=== PATIENT | female | born 1965 | race Caucasian/White ===

== ENCOUNTER → 2017-11-27 | Outpatient (CLI) | payer OTHER ==
--- NOTE | 2017-11-28 07:13 | US ---
EXAMINATION TYPE: US venous doppler duplex LE LT DATE OF EXAM: 11/27/2017 6:37 PM COMPARISON: Bilateral Doppler duplex venous ultrasound June 07, 2013 CLINICAL HISTORY: R22.42 Localized Swelling, mass and lump. Left leg edema SIDE PERFORMED: Left TECHNIQUE: The lower extremity deep venous system is examined utilizing real time linear array sonog ben with graded compression, doppler sonography and color-flow sonography. VESSELS IMAGED: External Iliac Vein (EIV) Common Femoral Vein Deep Femoral Vein Greater Saphenous Vein * Femoral Vein Popliteal Vein Small Saphenous Vein * Proximal Calf Veins (* superficial vessels) Left Leg: Negative for DVT Grayscale, color doppler, spectral doppler imaging performed of the deep veins of the left lower extr emity. There is normal flow, compressibility, vascular waveforms. IMPRESSION: No ultrasound evidence for acute DVT in the left lower extremity.
== END | disposition home or self-care (01) ==
LOC: RADUSMAIN 17:56
PROVIDERS: ATTEND Family Medicine
DX: R22.42 Localized swelling, mass and lump, left lower limb (principal)

== ENCOUNTER → 2018-06-10 | Outpatient (CLI) | payer OTHER ==
--- NOTE | 2018-06-11 13:06 | ECHOF ---
Referral Reason:I10 R60 MEASUREMENTS -------- HEIGHT: 170.2 cm WEIGHT: 158.8 kg BP: RVIDd: 2.6 cm (< 3.3) IVSd: 1.2 cm (0.6 - 1.1) LVIDd: 4.9 cm (3.9 - 5.3) LVPWd: 1.5 cm (0.6 - 1.1) IVSs: 1.5 cm LVIDs: 4.4 cm LVPWs: 1.1 cm LA Diam: 3.3 cm (2.7 - 3.8) LAESV Index (A-L): 20.99 ml/m Ao Diam: 3.0 cm (2.0 - 3.7) AV Cusp: 2.1 cm (1.5 - 2.6) LA Diam: 3.7 cm (2.7 - 3.8) MV EXCURSION: 14.447 mm (> 18.000) MV EF SLOPE: 83 mm/s (70 - 150) EPSS: 0.4 cm MV E Jackson: 0.78 m/s MV DecT: 270 ms MV A Jackson: 1.25 m/s MV E/A Ratio: 0.62 RAP: 5.00 mmHg RVSP: 18.08 mmHg FINDINGS -------- Sinus rhythm. Morbid Obesity The left ventricular size is normal. There is borderline concentric left ventricular hypertrophy. Overall left ventricular systolic function is normal with, an EF between 55 - 60 %. The right ventricle is normal in size. The left atrial size is normal. Normal LA size by volume 22+/-6 ml/m2. The right atrial size is normal. The aortic valve is trileaflet, and appears structurally normal. No aortic stenosis or regurgitation. The mitral valve is normal. Mild mitral regurgitation is present. Mild tricuspid regurgitation present. There is no evidence of pulmonary hypertension. The right v entricular systolic pressure, as measured by Doppler, is 18.08mmHg. There is no pulmonic regurgitation present. The aortic root size is normal. Echo free space indicative of a pericardial fat pad. CONCLUSIONS -------- 1. Sinus rhythm. 2. Morbid Obesity 3. The left ventricular size is normal. 4. There is borderline concentric left ventricular hypertrophy. 5. Overall left ventricular systolic function is normal with, an EF between 55 - 60 %. 6. The left atrial size is normal. 7. The aortic valve is trileaflet, and appears structurally normal. No aortic stenosis or regurgitati on. 8. Mild mitral regurgitation is present. 9. Mild tricuspid regurgitation present. 10. There is no evidence of pulmonary hypertension. 11. There is no pulmonic regurgitation present. 12. The aortic root size is normal. 13. Echo free space indicative of a pericardial fat pad. SIGNAL OPERATOR LINGUIST: Anne Agustin RDCS
== END | disposition home or self-care (01) ==
LOC: RADECHMAIN 15:03
PROVIDERS: ATTEND Family Medicine
DX: I08.1 Rheumatic disorders of both mitral and tricuspid valves (principal); I10 Essential (primary) hypertension; E66.9 Obesity, unspecified
CPT/HCPCS: 93306

== ENCOUNTER 2020-02-10 21:56 | Inpatient (IN) | payer OTHER ==
[2020-02-10] MEDS ORDERED: SODIUM CHLORIDE 0.9% 1,000 ML IV ONE (21:58)
[2020-02-10] MEDS ORDERED: LORazepam 2 MG/ML INJ IV STA (21:59)
[2020-02-10] MEDS: SODIUM CHLORIDE 0.9% 1,000 ML IV ONE ×2 (22:05→22:58)
--- NOTE | 2020-02-10 22:05 | ED ---
General Adult HPI - General Source: EMS, RN notes reviewed, old records reviewed <Slim Navarro - Last Filed: 02/10/20 22:56> <Inocencio Neely - Last Filed: 02/12/20 05:37> - General Stated complaint: altered mental status Time Seen by Provider: 02/10/20 21:56 - History of Present Illness Initial comments: This is a 54-year-old female with a past medical history significant for morbid obesity and hypertension. According to EMS family states that she started complaining of a headache about an hour ago and then became altered slightly just a little confused at about 20 minutes prior to arrival she became very combative and not interacting with EMS at all she is unable to respond to any questions so she is moving all 4 extremities and wailing and fighting us but does not understand anything we are saying. Patient follows no simple commands. According to EMS there's been no other issues up until the headache hour ago. There's been no recent fever chills is been no recent vomiting or diarrhea here to give any further history at this time. (Slim Navarro) - Related Data Home Medications Medication Instructions Recorded Confirmed No Known Home Medications 02/11/20 02/11/20 Allergies Allergy/AdvReac Type Severity Reaction Status Date / Time Penicillins Allergy Swelling Verified 02/11/20 09:05 Review of Systems ROS Other: All systems not noted in ROS Statement are negative. <Slim Navarro - Last Filed: 02/10/20 22:56> ROS Other: All systems not noted in ROS Statement are negative. <Inocencio Neely - Last Filed: 02/12/20 05:37> ROS Statement: Those systems with pertinent positive or pertinent negative responses have been documented in the HPI. Past Medical History Past Medical History: Hypertension Additional Past Medical History / Comment(s): lower leg edema History of Any Multi-Drug Resistant Organisms: None Reported Past Surgical History: No Surgical Hx Reported Past Psychological History: No Psychological Hx Reported Smoking Status: Never smoker Past Alcohol Use History: None Reported Past Drug Use History: None Reported <Slim Navarro - Last Filed: 02/10/20 22:56> General Exam <Slim Navarro - Last Filed: 02/10/20 22:56> - General Exam Comments Initial Comments: GENERAL: Patient is well-developed and well-nourished. Patient is nontoxic and well- hydrated and does not oriented all and is combative with the staff. Patient does not follow her understanding simple commands ENT: Neck is soft and supple. No significant lymphadenopathy is noted. Oropharynx is clear. Moist mucous membranes. Neck has full range of motion without eliciting any pain. EYES: The sclera were anicteric and conjunctiva were pink and moist. Extraocular movements were intact and pupils were equal round and reactive to light. Eyelids were unremarkable. PULMONARY: Unlabored respirations. Good breath sounds bilaterally. No audible rales rhonchi or wheezing was noted. CARDIOVASCULAR: There is a regular rate and rhythm without any murmurs gallops or rubs. ABDOMEN: Soft and nontender with normal bowel sounds. Patient is morbidly obese SKIN: Skin is clear with no lesions or rashes and otherwise unremarkable. NEUROLOGIC: Patient is awake and oriented 0 patient is moving all 4 extremities this time. MUSCULOSKELETAL: Normal extremities with adequate strength and full range of motion. No lower extremity swelling or edema. No calf tenderness. LYMPHATICS: No significant lymphadenopathy is noted PSYCHIATRIC: Not able to do at this time (Slim Navarro) Course Vital Signs 02/10/20 02/10/20 02/10/20 22:23 22:46 22:50 Temperature 98.9 F Pulse Rate 120 H 116 H 118 H Respiratory 16 24 18 Rate Blood Pressure 255/157 220/114 233/133 O2 Sat by Pulse 90 L 90 L 94 L Oximetry 02/10/20 02/11/20 02/11/20 23:45 00:00 01:00 Temperature 97.2 F L 36.3 F L Pulse Rate 118 H 116 H 118 H Respiratory 3 L 16 16 Rate Blood Pressure 249/150 202/110 207/110 O2 Sat by Pulse 97 100 98 Oximetry 02/11/20 02/11/20 02/11/20 02:00 02:41 02:50 Temperature 97.3 F L 97.5 F L Pulse Rate 116 H 114 H 114 H Respiratory 16 4 L 22 Rate Blood Pressure 202/104 O2 Sat by Pulse 99 98 95 Oximetry 02/11/20 02/11/20 02/11/20 03:00 03:22 03:30 Temperature Pulse Rate 113 H 111 H Respiratory 20 28 H 21 Rate Blood Pressure 201/110 123/104 O2 Sat by Pulse 96 99 Oximetry Medical Decision Making - Lab Data Result diagrams: 02/10/20 22:25 <Slim Navarro - Last Filed: 02/10/20 22:56> - Lab Data Result diagrams: 02/12/20 04:02 02/12/20 04:02 <Inocencio Neely - Last Filed: 02/12/20 05:37> - Medical Decision Making EKG shows sinus tachycardia at 123 bpm MT interval 162 QRS is 92 QT interval 314 QTC is 449. Patient's EKG shows no ST segment elevation or depression. Care of this patient with taking over Dr. De Oliveira at 9 PM (Slim Navarro) I received this patient as a sign out at 11 PM contrary to the note which states 9 PM. I did obtain additional history from the patient's at the bedside. History is consistent with what is given above, mainly at the patient seemed somewhat encephalopathic at home. She was wandering into the wrong rooms of the house looking for the bathroom and was confused. Family called EMS and h ad brought her here. In addition I verified that the patient does not see a physician at baseline. She is known to have hypertensive and is noncompliant. She is a previous smoker, but does not drink or take any street drugs. The patient had been intubated for acute respiratory failure. I discussed the case with both admitting physician, Dr. Louis and with Dr. Plata covering pulmonary. (Inocencio Neely) - Lab Data Lab Results 02/10/20 02/10/20 02/10/20 Range/Units 22:05 22:25 22:25 WBC 9.8 (3.8-10.6) k/uL RBC 5.48 H (3.80-5.40) m/uL Hgb 15.4 (11.4-16.0) gm/dL Hct 51.5 H (34.0-46.0) % MCV 94.0 (80.0-100.0) fL MCH 28.1 (25.0-35.0) pg MCHC 29.9 L (31.0-37.0) g/dL RDW 13.4 (11.5-15.5) % Plt Count 181 (150-450) k/uL Neutrophils % 67 % Lymphocytes % 24 % Monocytes % 5 % Eosinophils % 1 % Basophils % 1 % Neutrophils # 6.6 (1.3-7.7) k/uL Lymphocytes # 2.4 (1.0-4.8) k/uL Monocytes # 0.5 (0-1.0) k/uL Eosinophils # 0.1 (0-0.7) k/uL Basophils # 0.1 (0-0.2) k/uL Hypochromasia Moderate PT 9.5 (9.0-12.0) sec INR 0.9 (<1.2) APTT 22.2 (22.0-30.0) sec D-Dimer (<0.60) mg/L FEU Sample Site ABG pH (7.35-7.45) ABG pCO2 (35-45) mmHg ABG pO2 (83-108) mmHg ABG HCO3 (21-25) mmol/L ABG Total CO2 (19-24) mmol/L ABG O2 Saturation (94-97) % ABG Base Excess mmol/L Shawn Test FiO2 % Sodium (137-145) mmol/L Potassium (3.5-5.1) mmol/L Chloride (98-107) mmol/L Carbon Dioxide (22-30) mmol/L Anion Gap mmol/L BUN (7-17) mg/dL Creatinine (0.52-1.04) mg/dL Est GFR (CKD-EPI)AfAm (>60 ml/min/1.73 sqM) Est GFR (CKD-EPI)NonAf (>60 ml/min/1.73 sqM) Glucose (74-99) mg/dL POC Glucose (mg/dL) >600 H (75-99) mg/dL POC Glu Envelope Stamping Machine Operator ID Britni Atkinson Calcium (8.4-10.2) mg/dL Total Bilirubin (0.2-1.3) mg/dL AST (14-36) U/L ALT (4-34) U/L Alkaline Phosphatase (38-126) U/L Ammonia (<30) umol/L Troponin I (0.000-0.034) ng/mL Total Protein (6.3-8.2) g/dL Albumin (3.5-5.0) g/dL Acetone, Qual (Negative) Coronavirus (PCR) (Not Detectd) 04/22/20 04/22/20 04/22/20 Range/Units 22:25 22:25 22:25 WBC (3.8-10.6) k/uL RBC (3.80-5.40) m/uL Hgb (11.4-16.0) gm/dL Hct (34.0-46.0) % MCV (80.0-100.0) fL MCH (25.0-35.0) pg MCHC (31.0-37.0) g/dL RDW (11.5-15.5) % Plt Count (150-450) k/uL Neutrophils % % Lymphocytes % % Monocytes % % Eosinophils % % Basophils % % Neutrophils # (1.3-7.7) k/uL Lymphocytes # (1.0-4.8) k/uL Monocytes # (0-1.0) k/uL Eosinophils # (0-0.7) k/uL Basophils # (0-0.2) k/uL Hypochromasia PT (9.0-12.0) sec INR (<1.2) APTT (22.0-30.0) sec D-Dimer (<0.60) mg/L FEU Sample Site ABG pH (7.35-7.45) ABG pCO2 (35-45) mmHg ABG pO2 (83-108) mmHg ABG HCO3 (21-25) mmol/L ABG Total CO2 (19-24) mmol/L ABG O2 Saturation (94-97) % ABG Base Excess mmol/L Shawn Test FiO2 % Sodium 133 L (137-145) mmol/L Potassium 3.5 (3.5-5.1) mmol/L Chloride 90 L (98-107) mmol/L Carbon Dioxide 32 H (22-30) mmol/L Anion Gap 11 mmol/L BUN 10 (7-17) mg/dL Creatinine 0.91 (0.52-1.04) mg/dL Est GFR (CKD-EPI)AfAm 84 (>60 ml/min/1.73 sqM) Est GFR (CKD-EPI)NonAf 73 (>60 ml/min/1.73 sqM) Glucose 648 H* (74-99) mg/dL POC Glucose (mg/dL) (75-99) mg/dL POC Glu Envelope Stamping Machine Operator ID Calcium 9.0 (8.4-10.2) mg/dL Total Bilirubin 0.4 (0.2-1.3) mg/dL AST 39 H (14-36) U/L ALT 32 (4-34) U/L Alkaline Phosphatase 196 H (38-126) U/L Ammonia 16 (<30) umol/L Troponin I <0.012 (0.000-0.034) ng/mL Total Protein 8.0 (6.3-8.2) g/dL Albumin 4.3 (3.5-5.0) g/dL Acetone, Qual Negative (Negative) Coronavirus (PCR) (Not Detectd) 02/10/20 02/10/20 02/10/20 Range/Units 22:49 23:32 23:42 WBC (3.8-10.6) k/uL RBC (3.80-5.40) m/uL Hgb (11.4-16.0) gm/dL Hct (34.0-46.0) % MCV (80.0-100.0) fL MCH (25.0-35.0) pg MCHC (31.0-37.0) g/dL RDW (11.5-15.5) % Plt Count (150-450) k/uL Neutrophils % % Lymphocytes % % Monocytes % % Eosinophils % % Basophils % % Neutrophils # (1.3-7.7) k/uL Lymphocytes # (1.0-4.8) k/uL Monocytes # (0-1.0) k/uL Eosinophils # (0-0.7) k/uL Basophils # (0-0.2) k/uL Hypochromasia PT (9.0-12.0) sec INR (<1.2) APTT (22.0-30.0) sec D-Dimer 0.65 H (<0.60) mg/L FEU Sample Site r rad ABG pH 7.11 L* (7.35-7.45) ABG pCO2 106 H* (35-45) mmHg ABG pO2 183 H (83-108) mmHg ABG HCO3 34 H (21-25) mmol/L ABG Total CO2 37 H (19-24) mmol/L ABG O2 Saturation 99.5 H (94-97) % ABG Base Excess 4.0 mmol/L Shawn Test Yes FiO2 100 % Sodium (137-145) mmol/L Potassium (3.5-5.1) mmol/L Chloride (98-107) mmol/L Carbon Dioxide (22-30) mmol/L Anion Gap mmol/L BUN (7-17) mg/dL Creatinine (0.52-1.04) mg/dL Est GFR (CKD-EPI)AfAm (>60 ml/min/1.73 sqM) Est GFR (CKD-EPI)NonAf (>60 ml/min/1.73 sqM) Glucose (74-99) mg/dL POC Glucose (mg/dL) (75-99) mg/dL POC Glu Envelope Stamping Machine Operator ID Calcium (8.4-10.2) mg/dL Total Bilirubin (0.2-1.3) mg/dL AST (14-36) U/L ALT (4-34) U/L Alkaline Phosphatase (38-126) U/L Ammonia (<30) umol/L Troponin I (0.000-0.034) ng/mL Total Protein (6.3-8.2) g/dL Albumin (3.5-5.0) g/dL Acetone, Qual (Negative) Coronavirus (PCR) Not Detected (Not Detectd) 02/10/20 Range/Units 23:53 WBC (3.8-10.6) k/uL RBC (3.80-5.40) m/uL Hgb (11.4-16.0) gm/dL Hct (34.0-46.0) % MCV (80.0-100.0) fL MCH (25.0-35.0) pg MCHC (31.0-37.0) g/dL RDW (11.5-15.5) % Plt Count (150-450) k/uL Neutrophils % % Lymphocytes % % Monocytes % % Eosinophils % % Basophils % % Neutrophils # (1.3-7.7) k/uL Lymphocytes # (1.0-4.8) k/uL Monocytes # (0-1.0) k/uL Eosinophils # (0-0.7) k/uL Basophils # (0-0.2) k/uL Hypochromasia PT (9.0-12.0) sec INR (<1.2) APTT (22.0-30.0) sec D-Dimer (<0.60) mg/L FEU Sample Site rrad ABG pH 7.18 L* (7.35-7.45) ABG pCO2 81 H* (35-45) mmHg ABG pO2 164 H (83-108) mmHg ABG HCO3 30 H (21-25) mmol/L ABG Total CO2 33 H (19-24) mmol/L ABG O2 Saturation 99.5 H (94-97) % ABG Base Excess 1.7 mmol/L Shawn Test Yes FiO2 100 % Sodium (137-145) mmol/L Potassium (3.5-5.1) mmol/L Chloride (98-107) mmol/L Carbon Dioxide (22-30) mmol/L Anion Gap mmol/L BUN (7-17) mg/dL Creatinine (0.52-1.04) mg/dL Est GFR (CKD-EPI)AfAm (>60 ml/min/1.73 sqM) Est GFR (CKD-EPI)NonAf (>60 ml/min/1.73 sqM) Glucose (74-99) mg/dL POC Glucose (mg/dL) (75-99) mg/dL POC Glu Envelope Stamping Machine Operator ID Calcium (8.4-10.2) mg/dL Total Bilirubin (0.2-1.3) mg/dL AST (14-36) U/L ALT (4-34) U/L Alkaline Phosphatase (38-126) U/L Ammonia (<30) umol/L Troponin I (0.000-0.034) ng/mL Total Protein (6.3-8.2) g/dL Albumin (3.5-5.0) g/dL Acetone, Qual (Negative) Coronavirus (PCR) (Not Detectd) Critical Care Time Critical Care Time: Yes (45 minutes) <Inocencio Neely - Last Filed: 02/12/20 05:37> Disposition <Slim Navarro - Last Filed: 02/10/20 22:56> <Inocencio Neely - Last Filed: 02/12/20 05:37> Clinical Impression: Hypertensive encephalopathy, Hyperglycemia, Acute respiratory failure, Hypercarbia, Pneumonia, Altered mental status Disposition: ADMITTED IP TO THIS HOSP Condition: Critical
[2020-02-10 22:10] LABS: Glucose,Whole Blood >600 mg/dL (75-99)
[2020-02-10] MEDS ORDERED: INSULIN REGULAR 100 UNIT/ML VIAL IV ONE (22:24)
[2020-02-10] MEDS ORDERED: INSULIN REGULAR 100 UNIT in SODIUM CHLORIDE 0.9% 100 ML IV SCH (22:30)
--- NOTE | 2020-02-10 22:33 | CT ---
EXAMINATION TYPE: CT brain wo con DATE OF EXAM: 02/10/2020 COMPARISON: None HISTORY: 54-year-old female confusion, Altered mental status. TECHNIQUE: Examination was done in axial plane without intravenous contrast. Coronal and sagittal r econstructions performed. CT DLP: 1121.4 mGycm Automated exposure control for dose reduction was used. FINDINGS: There is no evidence of acute intracranial hemorrhage, acute ischemic changes, mass, mass-effect, or extra-axial fluid collection. There is no effacement of cerebral sulci or basal subarachnoid cister ns. There is no hydrocephalus. There is no midline shift. Newton-white matter distinction is preserv ed. 4 mm of right-sided cerebellar tonsillar ectopia, suggesting benign cerebellar tonsillar ectopia. Paranasal sinuses and mastoid air cells are pneumatized. Orbits and globes are intact. IMPRESSION: No acute intracranial abnormality seen. Incidental benign cerebellar tonsillar ectopia on the right o f 4 mm.
[2020-02-10 22:46] LABS: Basophils # (A) 0.1 k/uL (0-0.2); Basophils % (A) 1 %; Eosinophils # (A) 0.1 k/uL (0-0.7); Eosinophils % (A) 1 %; HCT 51.5 % (34.0-46.0); HGB 15.4 gm/dL (11.4-16.0); Hypochromasia Moderate; Lymphocytes # (A) 2.4 k/uL (1.0-4.8); Lymphocytes % (A) 24 %; MCH 28.1 pg (25.0-35.0); MCHC 29.9 g/dL (31.0-37.0); Mean Platelet Volume 8.7; Monocytes # (A) 0.5 k/uL (0-1.0); Monocytes % (A) 5 %; Neutrophils # (A) 6.6 k/uL (1.3-7.7); Neutrophils % (A) 67 %; Platelet Count 181 k/uL (150-450); RBC 5.48 m/uL (3.80-5.40); RDW 13.4 % (11.5-15.5); WBC 9.8 k/uL (3.8-10.6)
[2020-02-10] MEDS ORDERED: hydrALAZINE HCL 20 MG/ML 1 ML VIAL IVP STA (22:52)
[2020-02-10 22:53] LABS: ABG HCO3 34 mmol/L (21-25); ABG Oxygen Saturation 99.5 % (94-97); ABG PO2 183 mmHg (83-108); ABG TCO2 37 mmol/L (19-24); Allen Test Performed? Yes
[2020-02-10 22:54] LABS: ABG PCO2 106 mmHg (35-45); ABG PH 7.11 (7.35-7.45)
[2020-02-10 22:56] LABS: ALT 32 U/L (4-34); AST 39 U/L (14-36); African American GFR (CKD) 84 (>60 ml/min/1.73 sqM); Albumin 4.3 g/dL (3.5-5.0); Alkaline Phosphatase 196 U/L (38-126); Anion Gap 11 mmol/L; Blood Urea Nitrogen 10 mg/dL (7-17); Carbon Dioxide 32 mmol/L (22-30); Chloride 90 mmol/L (98-107); Non-African American GFR(CKD) 73 (>60 ml/min/1.73 sqM); Potassium 3.5 mmol/L (3.5-5.1); Sodium 133 mmol/L (137-145); Total Bilirubin 0.4 mg/dL (0.2-1.3)
[2020-02-10 22:58] LABS: INR 0.9 (<1.2); Partial Thromboplastin Time 22.2 sec (22.0-30.0); Prothrombin Time 9.5 sec (9.0-12.0)
[2020-02-10 23:10] LABS: Glucose 648 mg/dL (74-99)
[2020-02-10] MEDS ORDERED: ROCURONIUM BROMIDE 10 MG/ML 5 ML VIAL IV ONE (23:18)
[2020-02-10] MEDS ORDERED: SUCCINYLCHOLINE CHLORIDE VIAL 200 MG/10 ML VIAL IV ONE (23:18)
[2020-02-10] MEDS ORDERED: ETOMIDATE 2 MG/ML 10 ML VIAL ONE (23:18)
[2020-02-10 23:57] LABS: ABG Base Excess 1.7 mmol/L; ABG HCO3 30 mmol/L (21-25); ABG Oxygen Saturation 99.5 % (94-97); ABG PCO2 81 mmHg (35-45); ABG PH 7.18 (7.35-7.45); ABG PO2 164 mmHg (83-108); ABG TCO2 33 mmol/L (19-24); Allen Test Performed? Yes
[2020-02-11] MEDS: PROPOFOL 1,000 MG in EMPTY BAG 1 BAG IV SCH ×11 (00:03→21:11)
--- NOTE | 2020-02-11 00:16 | XR ---
EXAMINATION TYPE: XR chest 1V portable DATE OF EXAM: 02/11/2020 COMPARISON: 06/05/2013 HISTORY: Chest pain. Respiratory failure. TECHNIQUE: Single view supine FINDINGS: Endotracheal tube is 5 mm from the sara. There is left-sided perihilar infiltrate. There is no gross heart failure. There is no pleural effusion. IMPRESSION: Endotracheal tube is low and should BE pulled back 4 cm. There is left side perihilar inf iltrate and atelectasis. Nasogastric tube is not identified.
[2020-02-11] MEDS ORDERED: ENALAPRILAT 1.25 MG/ML 1 ML VIAL IVP STA (00:21)
[2020-02-11] MEDS ORDERED: MORPHINE SULFATE 2 MG/ML SYRINGE IV PRN (00:33)
[2020-02-11] MEDS ORDERED: ACETAMINOPHEN SUPPOSITORY 650 MG SUPP RECTAL PRN (00:33)
[2020-02-11] MEDS ORDERED: ACETAMINOPHEN TAB 325 MG TAB PO PRN (00:33)
[2020-02-11] MEDS ORDERED: ARTIFICIAL TEARS OINTMENT 3.5 GM TUBE BOTH EYES PRN (00:33)
[2020-02-11] MEDS ORDERED: NALOXONE 0.4 MG/ML 1 ML VIAL IV PRN (00:33)
[2020-02-11] MEDS ORDERED: AZITHROMYCIN 500 MG in SODIUM CHLORIDE 0.9% 250 ML IVPB STA (00:46)
[2020-02-11 01:15] LABS: Glucose,Whole Blood 468 mg/dL (75-99)
[2020-02-11 02:24] LABS: Appearance,Urine Cloudy (Clear); Bacteria,Urine Moderate /hpf; Bilirubin,Urine Negative (Negative); Blood,Urine Trace (Negative); Color,Urine Light Yellow; Glucose,Urine (UA) 4+ (Negative); Hyaline Casts,Urine 1 /lpf (0-2); Ketones,Urine Negative (Negative); Leukocyte Esterase,Urine Large (Negative); Mucus,Urine Rare /hpf; Nitrite,Urine Negative (Negative); Protein,Urine 2+ (Negative); RBC,Urine 4 /hpf (0-5); Specific Gravity,Urine 1.026 (1.001-1.035); Urobilinogen,Urine <2.0 mg/dL (<2.0); WBC,Urine 126 /hpf (0-5)
[2020-02-11 02:28] LABS: Amphetamine Screen,Urine Not Detected (NotDetected); Barbiturate Screen,Urine Not Detected (NotDetected); Benzodiazepines Screen,Urine Not Detected (NotDetected); Cocaine Screen,Urine Not Detected (NotDetected); Methadone Screen, Urine Not Detected (NotDetected); Opiate Screen,Urine Not Detected (NotDetected); Oxycodone Screen, Urine Not Detected (NotDetected); Phencyclidine Screen,Urine Not Detected (NotDetected); Tricyclic Antidepressant,Urine Not Detected (NotDetected); Urn Cannabinoid Scrn Not Detected (NotDetected)
[2020-02-11 02:45] LABS: Glucose,Whole Blood 327 mg/dL (75-99)
--- NOTE | 2020-02-11 02:53 | CT ---
EXAMINATION TYPE: CT chest angio for PE DATE OF EXAM: 02/11/2020 COMPARISON: None HISTORY: r/o PE Chest pain. Short of breath. Respiratory failure. CT DLP: 1022.5 mGycm Automated exposure control for dose reduction was used. CONTRAST: Performed with IV Contrast, patient injected with 100 mL of Isovue 370. There are 3-D post processed images. There is posterior basilar pulmonary infiltrates and atelectasis. Heart appears slightly enlarged. Th ere is no pericardial effusion. There is no pleural effusion. There are no hilar masses. Thoracic aor ta is intact without evidence of dissection. Ascending aorta measures 3.8 cm. There is no evidence of filling defect in the pulmonary arteries. There is no mediastinal adenopathy. Thoracic vertebra have normal alignment. There is no thoracic paraspinal mass. Bony thorax is intact. IMPRESSION: Cardiomegaly. Bilateral lower lobe pulmonary infiltrates and atelectasis. No evidence of pulmonary embolism. Hepatomegaly and fatty infiltration of the liver.
[2020-02-11] MEDS: POTASSIUM CHLORIDE 10 MEQ in WATER FOR INJECTION 1 100ML.BAG IVPB SCH ×4 (02:57→05:30)
[2020-02-11] MEDS: SODIUM CHLORIDE 0.9% 1,000 ML IV SCH ×4 (02:58→23:06)
--- NOTE | 2020-02-11 03:20 | XR ---
EXAMINATION TYPE: XR chest 1V confirm line [facility] DATE OF EXAM: 02/11/2020 COMPARISON: Yesterday HISTORY: Check tube placement TECHNIQUE: Single view FINDINGS: There is endotracheal tube 3.5 cm from the sara. There is left side perihilar infiltrate. Right lung is clear of consolidation. There is no heart failure. There is nasogastric tube in the st omach. IMPRESSION: Left side perihilar infiltrate unchanged. Endotracheal tube in good position.
[2020-02-11 05:13] LABS: Basophils % (A) 0 %; Eosinophils % (A) 0 %; HCT 48.5 % (34.0-46.0); HGB 14.6 gm/dL (11.4-16.0); Hypochromasia Moderate; Lymphocytes # (A) 0.6 k/uL (1.0-4.8); Lymphocytes % (A) 4 %; MCH 28.2 pg (25.0-35.0); MCHC 30.1 g/dL (31.0-37.0); MCV 93.8 fL (80.0-100.0); Mean Platelet Volume 8.4; Monocytes # (A) 0.9 k/uL (0-1.0); Monocytes % (A) 6 %; Neutrophils # (A) 15.1 k/uL (1.3-7.7); Neutrophils % (A) 90 %; Platelet Count 211 k/uL (150-450); RBC 5.18 m/uL (3.80-5.40); RDW 13.6 % (11.5-15.5); WBC 16.9 k/uL (3.8-10.6)
[2020-02-11 05:20] LABS: African American GFR (CKD) 80 (>60 ml/min/1.73 sqM); Alcohol <10 mg/dL; Anion Gap 8 mmol/L; Blood Urea Nitrogen 11 mg/dL (7-17); Calcium 8.3 mg/dL (8.4-10.2); Carbon Dioxide 32 mmol/L (22-30); Chloride 95 mmol/L (98-107); Glucose 405 mg/dL (74-99); Magnesium 1.8 mg/dL (1.6-2.3); Non-African American GFR(CKD) 70 (>60 ml/min/1.73 sqM); Phosphorus 5.1 mg/dL (2.5-4.5); Potassium 4.5 mmol/L (3.5-5.1); Sodium 135 mmol/L (137-145)
--- NOTE | 2020-02-11 05:35 | P.HPIM ---
History of Present Illness H&P Date: 02/11/20 The patient is a 54-year-old female with a PMH of hypertension (poor f/u with PMD) and morbid obesity presented to the ED, brought in by family for confusion. Spoke with the patient's (Brandon via phone [phone]) who reported that the patient had been feeling somewhat ill for the past few weeks. She was however able to function for the most part and attend to her job. She however complained of a headache an hour prior to presentation and proceeded to lay down. She complained to her family that she doesn't feel well, and then became confused, not answering questions appropriately. The family activated EMS and she was brought in to the ED where she was noted to be altered and combative. The patient was noted to be extremely hypertensive upon arrival, with BP 255/157, pulse 120, and saturating 90% on nonrebreather mask. The patient's ABG revealed a pH of 7.11 and pCO2 106. The patient was subsequently intubated. She underwent an extensive evaluation in the emergency room with a brain CT that was unremarkable, chest x-ray which showed a left perihilar infiltrate with atelectasis, EKG showing sinus a cardiac 1 23 bpm, and a chest CTA which revealed cardiomegaly, bilateral lower pulmonary infiltrates, with hepatomegaly and fatty infiltration of the liver. Laboratory evaluation revealed a WBC count of 9.8, hemoglobin 15.4, platelets 181, sodium 133, potassium 3.5, chloride 90, CO2 32, BUN 10, creatinine 0.91, glucose 648, alkaline phosphatase 196, and d- dimer 0.65, with troponin less than 0.012. The patient was admitted to the medical ICU for further management. Review of Systems Pertinent positives and negatives as discussed in HPI, a complete review of systems was performed and all other systems are negative. Past Medical History Past Medical History: Hypertension Additional Past Medical History / Comment(s): lower leg edema History of Any Multi-Drug Resistant Organisms: None Reported Past Surgical History: No Surgical Hx Reported Past Psychological History: No Psychological Hx Reported Smoking Status: Never smoker Past Alcohol Use History: None Reported Past Drug Use History: None Reported Medications and Allergies Home Medications Medication Instructions Recorded Confirmed Type Acetaminophen-Codeine 300-30mg 1 each PO Q6H PRN #20 tablet 06/30/14 Rx [Tylenol #3] Carvedilol [Coreg] 3.125 mg PO DAILY 04/19/14 04/19/14 History Ciprofloxacin HCl [Cipro] 500 mg PO Q12HR #20 day 04/19/14 Rx Furosemide [Lasix] 20 mg PO DAILY PRN 04/19/14 04/19/14 History Ibuprofen [Motrin] 800 mg PO Q6HR PRN #30 tab 04/19/14 Rx Ondansetron [Zofran] 4 mg PO Q8HR PRN #15 tab 04/19/14 Rx Tamsulosin [Flomax] 0.4 mg PO DAILY #3 cap 04/19/14 Rx Allergies Allergy/AdvReac Type Severity Reaction Status Date / Time Penicillins Allergy Swelling Verified 04/19/14 11:12 Physical Exam Vitals: Vital Signs Temp Pulse Resp BP Pulse Ox 02/10/20 23:45 118 H 3 L 249/150 97 02/10/20 22:50 118 H 18 233/133 94 L 02/10/20 22:46 98.9 F 116 H 24 220/114 90 L 02/10/20 22:23 120 H 16 255/157 90 L Intake and Output 02/10/20 02/10/20 02/11/20 14:59 22:59 06:59 Intake Total 28.861 Balance 28.861 Intake: Intake, IV Titration 28.861 Amount Insulin Regular 100 unit 28.861 In Sodium Chloride 0.9% 100 ml @ 0.1 UNITS/KG/HR 16.034 mls/hr IV .Q6H18M [facility] Rx#:[id number] Other: Weight 158.757 kg General: Morbidly obese female, intubated, no distress, appears at stated age Derm: no unusual ecchymoses, warm, dry Head: atraumatic, normocephalic, symmetric Eyes: EOMI, no lid lag, anicteric sclera, pupils sluggishly reactive to light with spontaneous calvin nystagmus ENT: Nose and ears atraumatic Neck: No thyromegaly, no cervical lymphadenopathy, trachea midline, supple Mouth: no lip lesion Cardiovascular: S1S2 reg, no murmur, positive posterior tibial pulse bilateral, no edema, capillary refill less than 2 seconds Lungs: Scattered coarse breath sounds, no rales, no wheezing, no accessory muscle use Abdominal: soft, no appreciable organomegaly Ext: no gross muscle atrophy, no contractures, Neuro: Unresponsive to noxious stimuli Psych: Unable to perform Results CBC & Chem 7: 02/10/20 22:25 02/10/20 22:25 Labs: Abnormal Lab Results - Last 24 Hours (Table) 02/10/20 02/10/20 02/10/20 Range/Units 22:05 22:25 22:25 RBC 5.48 H (3.80-5.40) m/uL Hct 51.5 H (34.0-46.0) % MCHC 29.9 L (31.0-37.0) g/dL D-Dimer (<0.60) mg/L FEU ABG pH (7.35-7.45) ABG pCO2 (35-45) mmHg ABG pO2 (83-108) mmHg ABG HCO3 (21-25) mmol/L ABG Total CO2 (19-24) mmol/L ABG O2 Saturation (94-97) % Sodium 133 L (137-145) mmol/L Chloride 90 L (98-107) mmol/L Carbon Dioxide 32 H (22-30) mmol/L Glucose 648 H* (74-99) mg/dL POC Glucose (mg/dL) >600 H (75-99) mg/dL AST 39 H (14-36) U/L Alkaline Phosphatase 196 H (38-126) U/L 02/10/20 02/10/20 02/10/20 Range/Units 22:49 23:32 23:53 RBC (3.80-5.40) m/uL Hct (34.0-46.0) % MCHC (31.0-37.0) g/dL D-Dimer 0.65 H (<0.60) mg/L FEU ABG pH 7.11 L* 7.18 L* (7.35-7.45) ABG pCO2 106 H* 81 H* (35-45) mmHg ABG pO2 183 H 164 H (83-108) mmHg ABG HCO3 34 H 30 H (21-25) mmol/L ABG Total CO2 37 H 33 H (19-24) mmol/L ABG O2 Saturation 99.5 H 99.5 H (94-97) % Sodium (137-145) mmol/L Chloride (98-107) mmol/L Carbon Dioxide (22-30) mmol/L Glucose (74-99) mg/dL POC Glucose (mg/dL) (75-99) mg/dL AST (14-36) U/L Alkaline Phosphatase (38-126) U/L 02/11/20 Range/Units 01:12 RBC (3.80-5.40) m/uL Hct (34.0-46.0) % MCHC (31.0-37.0) g/dL D-Dimer (<0.60) mg/L FEU ABG pH (7.35-7.45) ABG pCO2 (35-45) mmHg ABG pO2 (83-108) mmHg ABG HCO3 (21-25) mmol/L ABG Total CO2 (19-24) mmol/L ABG O2 Saturation (94-97) % Sodium (137-145) mmol/L Chloride (98-107) mmol/L Carbon Dioxide (22-30) mmol/L Glucose (74-99) mg/dL POC Glucose (mg/dL) 468 H (75-99) mg/dL AST (14-36) U/L Alkaline Phosphatase (38-126) U/L Assessment and Plan Plan: Altered mental status, likely multifactorial with component of respiratory failure, hyperglycemia, uncontrolled hypertension, and UTI -Manage each as listed below Hypoxic and hypercapnic respiratory failure, likely multifactorial -Patient likely with underlying COPD, reported history of significant tobacco abuse, though states that the patient quit a few years ago -Likely also component of obesity hypoventilation syndrome -Continue with mechanical ventilation with ventilator bundle -Management as per line service technician -Pulmonary hygiene Hyperglycemia, likely undiagnosed type II DM -Continue with insulin sliding scale for now -Start Levemir 15 units daily -Blood glucose monitoring -Check A1c Hypertensive emergency -Avoid over-correction -Start anti-hypertensives Abnormal UA, presumed UTI in setting of altered mental status -Start patient on Levaquin -Follow up urine and blood cultures Hyponatremia, likely pseudo in setting of hypoglycemia -Continue to treat hyperglycemia as listed above Bilateral infiltrates on chest x-ray, presumed community acquired pneumonia -Start patient on Levaquin DVT prophylaxis -Heparin subq The patient is admitted with an anticipated greater than 2 midnight stay for evaluation of respiratory failure CODE STATUS: Full Code Discussed with: Anticipated discharge date: 4-[address]: home A total of 40 minutes was spent on the care of this complex patient more than 50% of the time was spent in counseling and care coordination.
[2020-02-11] MEDS ORDERED: Magnesium Replacement Protocol 1 EACH MISC MISCELLANE PRN (05:46)
[2020-02-11 05:54] LABS: ABG Base Excess -1.3 mmol/L; ABG HCO3 26 mmol/L (21-25); ABG Oxygen Saturation 98.6 % (94-97); ABG PCO2 61 mmHg (35-45); ABG PH 7.24 (7.35-7.45); ABG PO2 109 mmHg (83-108); ABG TCO2 28 mmol/L (19-24); Allen Test Performed? Yes
[2020-02-11 05:59] LABS: Glucose,Whole Blood 424 mg/dL (75-99)
[2020-02-11] MEDS ORDERED: INSULIN ASPART (NovoLOG) 100 UNIT/ML VIAL SQ SCH ×2 (06:00→07:30)
[2020-02-11] MEDS: MAGNESIUM SULFATE-D5W PMX 1 GM in DEXTROSE/WATER 1 100ML.BAG IVPB SCH ×2 (06:02→08:54)
[2020-02-11] MEDS: LEVOFLOXACIN 750MG-D5W PMX 750 MG in DEXTROSE/WATER 1 150ML.BAG IVPB SCH (06:09)
[2020-02-11] MEDS ORDERED: INSULIN DETEMIR (LEVEMIR) 100 UNIT/ML SYR SQ SCH (07:00)
[2020-02-11 07:56] LABS: Glucose,Whole Blood 456 mg/dL (75-99)
[2020-02-11] MEDS ORDERED: INSULIN REGULAR BOLUS (FROM DRIP BAG) IV PRN (07:56)
[2020-02-11] MEDS: HEPARIN SODIUM,PORCINE 5,000 UNIT/ML 1 ML VIAL SQ SCH ×3 (08:55→23:08)
[2020-02-11] MEDS: INSULIN REGULAR 100 UNIT in SODIUM CHLORIDE 0.9% 100 ML IV SCH ×2 (09:12→22:04)
[2020-02-11 09:20] LABS: Glucose,Whole Blood 512 mg/dL (75-99)
[2020-02-11 09:45] LABS: Glucose,Whole Blood 441 mg/dL (75-99)
--- NOTE | 2020-02-11 10:45 | XR ---
EXAMINATION TYPE: XR chest 1V portable DATE OF EXAM: 02/11/2020 CLINICAL HISTORY: Central line placement. TECHNIQUE: Single AP portable upright view of the chest is obtained. COMPARISON: Chest x-ray and CTA chest from earlier today FINDINGS: New left-sided internal jugular central venous catheter projects into the right subclavian vein and needs to be adjusted. Stable endotracheal and orogastric tubes. Suboptimal study due to body habitus. Persistent cardiomega ly with central vascular congestion. Developing left basilar opacity silhouetting the lateral aspect left hemidiaphragm. Osseous structures are intact. IMPRESSION: 1. New left-sided internal jugular central venous catheter terminates in right subclavian vein and ne eds to be adjusted. 2. Persistent cardiomegaly with central vascular congestion and low lung volumes. Worsening left basi lar acute atelectasis and/or infiltrate noted.
[2020-02-11 10:55] LABS: Glucose,Whole Blood 299 mg/dL (75-99)
[2020-02-11] MEDS ORDERED: SODIUM CHLORIDE 0.9% 2,000 ML IV ONE (10:58)
[2020-02-11] MEDS: PANTOPRAZOLE 40 MG/10 ML VIAL IV SCH (11:35)
[2020-02-11 12:08] LABS: Glucose,Whole Blood 238 mg/dL (75-99)
[2020-02-11 13:11] LABS: Glucose,Whole Blood 102 mg/dL (75-99)
--- NOTE | 2020-02-11 13:53 | P.CNPUL ---
History of Present Illness Consult date: 02/11/20 Chief complaint: Altered mental status History of present illness: This is a 54-year-old morbidly obese female patient was brought in to the ED y esterday because of diminished level of consciousness and confusion. No history was available MO's of the information was obtained from the medical records and per our discussion with the . Apparently the patient was feeling sick for a few days prior to hospital admission. She was having altered mentation. She complained of some minimal headache. Hours prior to her presentation to the hospital. She was confused and not answering questions appropriately. The family activated EMS who arrived to the scene and the patient was noted to be somewhat altered and combative. The patient also had acute hypertensive reaction where her blood pressure was found to be 255/157 with a pulse of 120. She was placed on nonrebreather facemask with a pulse of 70%. In the ED, blood gases was done that showed a pH of 7.11 with a pCO2 of 106. At that point, the patient was intubated and placed on a mechanical ventilator. Chest x-ray post intubation showed cardiomegaly and pulmonary asked her congestion. There was some left perihilar point infiltrates and some limited infiltration of the right perihilar area. CT angiogram showed cardiomegaly along with some lower lobe at the pulmonary infiltrates in addition to hepatomegaly and fatty infiltration of the liver. The EKG showed a normal sinus rhythm. UA Fort[place] suspicious for an underlying infection. The white cell count of 9.8 with hemoglobin 15.4. Rest of the blood work shows some mild metabolic alkalosis with a serum bicarb of 32. Glucose was 648. D-dimer was 0.6. Troponin was 0.12. This morning, the patient was seen in the intensive care unit. The patient was still intubated on mechanical ventilator. She was assist-control mode of ventilation with a rate of 20 and a tidal volume of 400 and FiO2 of 60% with a PEEP of 5. Morning blood gases showed a pH of 7.24 with a pCO2 61 and pO2 of 109. The patient was ordered to start on Levaquin suspecting an underlying UTI based on abnormal UA. The patient was a Covid negative case. The Covid night seen evaluation came back negative. The patient is currently afebrile. She is receiving IV fluids and normal saline at the rate of 1 30 mL an hour. She is sedated with propofol. She is on insulin drip that was started in the ICU for blood sugar control. She is also on heparin subcu for DVT prophylaxis. Review of Systems ROS unobtainable: due to endotracheal tube Past Medical History Past Medical History: Hypertension Additional Past Medical History / Comment(s): Morbid obesity, lower leg edema and the patient has not had any outpatient medical follow-up and she doesn't take any medications History of Any Multi-Drug Resistant Organisms: None Reported Past Surgical History: No Surgical Hx Reported Past Anesthesia/Blood Transfusion Reactions: No Reported Reaction Past Psychological History: No Psychological Hx Reported Smoking Status: Never smoker Past Alcohol Use History: None Reported Past Drug Use History: None Reported Medications and Allergies Home Medications Medication Instructions Recorded Confirmed Type No Known Home Medications 02/11/20 02/11/20 History Allergies Allergy/AdvReac Type Severity Reaction Status Date / Time Penicillins Allergy Swelling Verified 02/11/20 09:05 Physical Exam Vitals: Vital Signs Temp Pulse Resp BP Pulse Ox 02/11/20 13:00 93 22 97 02/11/20 12:30 95 25 H 98 02/11/20 12:00 100.6 F H 96 23 98/69 98 02/11/20 11:30 97 27 H 98/69 98 02/11/20 11:00 93 23 98/69 97 02/11/20 10:30 100 30 H 89/56 95 02/11/20 10:00 99 28 H 89/50 95 02/11/20 09:30 100 28 H 102/63 96 02/11/20 09:00 103 H 30 H 95/60 95 02/11/20 08:30 104 H 24 95/59 95 02/11/20 08:00 100.6 F H 104 H 23 98/64 95 02/11/20 07:30 103 H 23 103/59 96 02/11/20 07:00 103 H 21 104/64 96 02/11/20 06:30 106 H 20 106/64 97 02/11/20 06:00 109 H 20 108/64 98 02/11/20 05:30 112 H 22 131/68 98 02/11/20 05:00 111 H 20 172/79 97 02/11/20 04:30 109 H 20 161/96 98 02/11/20 04:00 98.5 F 109 H 20 150/90 100 04/23/20 03:30 111 H 21 123/104 99 02/11/20 03:22 28 H 02/11/20 03:00 113 H 20 201/110 96 02/11/20 02:50 97.5 F L 114 H 22 95 02/11/20 02:41 114 H 4 L 98 02/11/20 02:00 97.3 F L 116 H 16 202/104 99 02/11/20 01:00 36.3 F L 118 H 16 207/110 98 02/11/20 00:00 97.2 F L 116 H 16 202/110 100 02/10/20 23:45 118 H 3 L 249/150 97 02/10/20 22:50 118 H 18 233/133 94 L 02/10/20 22:46 98.9 F 116 H 24 220/114 90 L 02/10/20 22:23 120 H 16 255/157 90 L Intake and Output 02/10/20 02/11/20 02/11/20 22:59 06:59 14:59 Intake Total 3205.559 305.131 Output Total 1360 140 Balance 1845.559 165.131 Intake: IV 980 130 Potassium Chloride 10 meq 200 In Water For Injection 1 100ml.bag @ 100 mls/hr IVPB Q1HR [facility] Rx#: [id number] Sodium Chloride 0.9% 1, 780 130 000 ml @ 130 mls/hr IV . Q7H42M [facility] Rx#:[id number] Amount of Fluid Infused ( 2000 ml) Intake, IV Titration 225.559 175.131 Amount Insulin Regular 100 unit 28.861 In Sodium Chloride 0.9% 100 ml @ 0.1 UNITS/KG/HR 16.034 mls/hr IV .Q6H18M [facility] Rx#:[id number] Insulin Regular 100 unit 42.252 In Sodium Chloride 0.9% 100 ml @ Per Protocol IV .Q0M [facility] Rx#:[id number] Propofol 1,000 mg In 196.698 132.879 Empty Bag 1 bag @ Titrate IV .Q0M [facility] Rx#: [id number] Output: Urine 1360 140 Other: Weight 158.757 kg 158.757 kg ABP, PAP, CO, CI - Last 8 Hours Arterial Blood Pressure 89/53 Arterial Blood Pressure 108/54 Arterial Blood Pressure 94/55 Arterial Blood Pressure 94/56 Arterial Blood Pressure 87/53 General: Morbidly obese female, intubated, no distress, appears at stated age, she is well sedated with propofol, comfortable likely distress. Orogastric and orotracheal tube are both in place. Derm: no unusual ecchymoses, warm, dry, Examination of the skin revealed no evidence of significant rashes, suspicious appearing nevi or other concerning l esions. Head: atraumatic, normocephalic, symmetric Eyes: EOMI, no lid lag, anicteric sclera, pupils sluggishly reactive to light with spontaneous calvin nystagmus ENT: Nose and ears atraumatic Neck: No thyromegaly, no cervical lymphadenopathy, trachea midline, supple Mouth: no lip lesion Cardiovascular: S1S2 reg, no murmur, positive posterior tibial pulse bilateral, no edema, capillary refill less than 2 seconds Lungs: Scattered coarse breath sounds, no rales, no wheezing, no accessory muscle use Abdominal exam revealed normal bowel sounds. The abdomen was soft, non-tender, and without masses, organomegaly, or appreciable enlargement of the abdominal aorta. Examination of the extremities revealed easily palpable radial, femoral and pedal pulses. There was no cyanosis, clubbing or edema. Neuro: Unresponsive to noxious stimuli Psych: Unable to perform Results - Laboratory Findings CBC and BMP: 02/11/20 04:38 02/11/20 04:38 ABG ABG pH 7.24 (7.35-7.45) L 02/11/20 05:50 ABG pCO2 61 mmHg (35-45) H 02/11/20 05:50 ABG pO2 109 mmHg (83-108) H 02/11/20 05:50 ABG O2 Saturation 98.6 % (94-97) H 02/11/20 05:50 PT/INR, D-dimer PT 9.5 sec (9.0-12.0) 02/10/20 22:25 INR 0.9 (<1.2) 02/10/20 22:25 D-Dimer 0.65 mg/L FEU (<0.60) H 02/10/20 23:32 Abnormal lab findings: Abnormal Labs 02/10/20 02/10/20 02/10/20 22:05 22:25 22:25 WBC RBC 5.48 H Hct 51.5 H MCHC 29.9 L Neutrophils # Lymphocytes # D-Dimer ABG pH ABG pCO2 ABG pO2 ABG HCO3 ABG Total CO2 ABG O2 Saturation Sodium 133 L Chloride 90 L Carbon Dioxide 32 H Glucose 648 H* POC Glucose (mg/dL) >600 H Plasma Lactic Acid Mariusz Calcium Phosphorus AST 39 H Alkaline Phosphatase 196 H Procalcitonin Urine Appearance Urine Protein Urine Glucose (UA) Urine Blood Ur Leukocyte Esterase Urine WBC Urine WBC Clumps Urine Bacteria Urine Mucus 02/10/20 02/10/20 02/10/20 22:49 23:32 23:53 WBC RBC Hct MCHC Neutrophils # Lymphocytes # D-Dimer 0.65 H ABG pH 7.11 L* 7.18 L* ABG pCO2 106 H* 81 H* ABG pO2 183 H 164 H ABG HCO3 34 H 30 H ABG Total CO2 37 H 33 H ABG O2 Saturation 99.5 H 99.5 H Sodium Chloride Carbon Dioxide Glucose POC Glucose (mg/dL) Plasma Lactic Acid Mariusz Calcium Phosphorus AST Alkaline Phosphatase Procalcitonin Urine Appearance Urine Protein Urine Glucose (UA) Urine Blood Ur Leukocyte Esterase Urine WBC Urine WBC Clumps Urine Bacteria Urine Mucus 02/11/20 02/11/20 02/11/20 01:12 01:17 02:43 WBC RBC Hct MCHC Neutrophils # Lymphocytes # D-Dimer ABG pH ABG pCO2 ABG pO2 ABG HCO3 ABG Total CO2 ABG O2 Saturation Sodium Chloride Carbon Dioxide Glucose POC Glucose (mg/dL) 468 H 327 H Plasma Lactic Acid Mariusz Calcium Phosphorus AST Alkaline Phosphatase Procalcitonin Urine Appearance Cloudy H Urine Protein 2+ H Urine Glucose (UA) 4+ H Urine Blood Trace H Ur Leukocyte Esterase Large H Urine WBC 126 H Urine WBC Clumps Moderate H Urine Bacteria Moderate H Urine Mucus Rare H 02/11/20 02/11/20 02/11/20 04:38 04:38 04:38 WBC 16.9 H RBC Hct 48.5 H MCHC 30.1 L Neutrophils # 15.1 H Lymphocytes # 0.6 L D-Dimer ABG pH ABG pCO2 ABG pO2 ABG HCO3 ABG Total CO2 ABG O2 Saturation Sodium 135 L Chloride 95 L Carbon Dioxide 32 H Glucose 405 H POC Glucose (mg/dL) Plasma Lactic Acid Mariusz Calcium 8.3 L Phosphorus 5.1 H AST Alkaline Phosphatase Procalcitonin 0.11 H Urine Appearance Urine Protein Urine Glucose (UA) Urine Blood Ur Leukocyte Esterase Urine WBC Urine WBC Clumps Urine Bacteria Urine Mucus 02/11/20 02/11/20 02/11/20 05:50 05:58 07:55 WBC RBC Hct MCHC Neutrophils # Lymphocytes # D-Dimer ABG pH 7.24 L ABG pCO2 61 H ABG pO2 109 H ABG HCO3 26 H ABG Total CO2 28 H ABG O2 Saturation 98.6 H Sodium Chloride Carbon Dioxide Glucose POC Glucose (mg/dL) 424 H 456 H Plasma Lactic Acid Mariusz Calcium Phosphorus AST Alkaline Phosphatase Procalcitonin Urine Appearance Urine Protein Urine Glucose (UA) Urine Blood Ur Leukocyte Esterase Urine WBC Urine WBC Clumps Urine Bacteria Urine Mucus 02/11/20 02/11/20 02/11/20 09:19 09:22 09:44 WBC RBC Hct MCHC Neutrophils # Lymphocytes # D-Dimer ABG pH ABG pCO2 ABG pO2 ABG HCO3 ABG Total CO2 ABG O2 Saturation Sodium Chloride Carbon Dioxide Glucose POC Glucose (mg/dL) 512 H 441 H Plasma Lactic Acid Mariusz 2.5 H* Calcium Phosphorus AST Alkaline Phosphatase Procalcitonin Urine Appearance Urine Protein Urine Glucose (UA) Urine Blood Ur Leukocyte Esterase Urine WBC Urine WBC Clumps Urine Bacteria Urine Mucus 02/11/20 02/11/20 02/11/20 10:54 12:07 13:10 WBC RBC Hct MCHC Neutrophils # Lymphocytes # D-Dimer ABG pH ABG pCO2 ABG pO2 ABG HCO3 ABG Total CO2 ABG O2 Saturation Sodium Chloride Carbon Dioxide Glucose POC Glucose (mg/dL) 299 H 238 H 102 H Plasma Lactic Acid Mariusz Calcium Phosphorus AST Alkaline Phosphatase Procalcitonin Urine Appearance Urine Protein Urine Glucose (UA) Urine Blood Ur Leukocyte Esterase Urine WBC Urine WBC Clumps Urine Bacteria Urine Mucus - Diagnostic Findings Chest x-ray: image reviewed Assessment and Plan Plan: 1 altered mentation seeing in the rate to CO2 narcosis. The patient's blood gases clearly show a component of hypercapnic respiratory failure which is rather acute. This could've affected her mental status. CAT scan of the brain was essentially negative and the patient is currently intubated on mechanical ventilator and she is well sedated 2 acute hypoxic/hypercapnic respiratory failure. The patient has an acute on top of chronic hypoxic/hypercapnic respiratory failure. Exact decompensating fact it is not clear although this could be related to bilateral pneumonia and possible UTI. The patient is being treated with antibiotics for now. CT angiogram showed no active methicillin some limited infiltration of the lung bases. There is no evidence of any pulmonary embolism. 3 morbid obesity with a BMI of 51.7, with possible component of obstructive sleep apnea 4 diabetes mellitus with elevated blood sugar and the patient is currently on insulin drip for blood sugar control 5 hypertension with a acute hypertensive reaction any type of admission 6 leukocytosis secondary to above 7 poor medical follow-up and the patient does not see or be evaluated by any physician outpatient basis Plan Continue vent support and drop the FiO2 down to 50%. Sputum Gram stain and culture blood culture urine culture Empiric antibiotic coverage with Levaquin pending further cultures and further adjustment of antibiotic course will be done accordingly IV fluids normal saline at the rate of 130 mL an hour DVT and GI prophylaxis Established triple-lumen catheter an art line catheter for hemodynamic support and monitoring Insulin drip for blood sugar control Blood pressure control is improved once the patient was placed on sedation. No need for any antihypertensive medications for now given additional 2 L of IV fluids for resuscitation Check pro calcitonin level Troponins are negative, first set We'll continue to follow make further recommendations based on her progress. Condition is critical and will follow
--- NOTE | 2020-02-11 13:57 | P.PCN ---
Date of Procedure: 02/11/20 Preoperative Diagnosis: Acute on chronic hypercapnic/hypoxic respiratory failure Postoperative Diagnosis: Acute on chronic hypercapnic/hypoxic respiratory failure Procedure(s) Performed: Triple-lumen catheter insertion, arterial line catheter insertion Anesthesia: local Surgeon: Arely Plata Estimated Blood Loss (ml): 0 Pathology: none sent Condition: other Disposition: ICU Operative Findings: Indication: Hemodynamic monitoring/Intravenous access. A time-out was completed verifying correct patient, procedure, site, positioning, and implant(s) or special equipment if applicable. The patient was placed in a dependent position appropriate for central line placement based on the vein to be cannulated. The patients left shoulder was prepped and draped in sterile fashion. 1% Lidocaine was used to anesthetize the surrounding skin area. A triple lumen 9F Cordis catheter was introduced into the left internal jugular vein using Seldinger technique. The catheter was threaded smoothly over the guide wire and appropriate blood return was obtained. Each lumen of the catheter was evacuated of air and flushed with sterile saline. The catheter was then sutured in place to the skin and a sterile dressing applied. Perfusion to the extremity distal to the point of catheter insertion was checked and found to be adequate. The patient tolerated the procedure well and there were no complications. Indication: Hemodynamic monitoring. A time-out was completed verifying correct patient, procedure, site, positioning, and implant(s) or special equipment if applicable. Allens test was performed to ensure adequate perfusion. The patients left wrist was prepped and draped in sterile fashion. 1% Lidocaine was used to anesthetize the area. An 18G Arrow arterial line was introduced into the radial artery. The catheter was threaded over the guide wire and the needle was removed with appropriate pulsatile blood return. Blood loss was minimal. The catheter was then sutured in place to the skin and a sterile dressing applied. Perfusion to the extremity distal to the point of catheter insertion was checked and found to be adequate. The patient tolerated the procedure well and there were no complications.
[2020-02-11 14:03] LABS: Glucose,Whole Blood 198 mg/dL (75-99)
[2020-02-11 15:09] LABS: Glucose,Whole Blood 184 mg/dL (75-99)
--- NOTE | 2020-02-11 16:59 | P.PN ---
Progress Note - Text Progress Note Date: 02/11/20 The patient is a 54-year-old female with a PMH of hypertension (poor f/u with PMD) and morbid obesity presented to the ED, brought in by family for confusion. Apparently, patient's ([place] via phone [phone]) who reported that the patient had been feeling somewhat ill for the past few weeks. She was however able to function for the most part and attend to her job. She however complained of a headache an hour prior to presentation and proceeded to lay down. She complained to her family that she doesn't feel well, and then became confused, not answering questions appropriately. The family activated EMS and she was brought in to the ED where she was noted to be altered and combative. The patient was noted to be extremely hypertensive upon arrival, with BP 255/157, pulse 120, and saturating 90% on nonrebreather mask. The patient's ABG revealed a pH of 7.11 and pCO2 106. The patient was subsequently intubated. Please refer to H&P for full documentation. Patient was seen and examined. She continues to be intubated. Rate is at 20. Tidal volume 400. FiO2 60%. PEEP is at 5. Coronavirus testing is negative. She is currently on insulin drip for hyperglycemia management. Levaquin has been started for UTI. Vent management as per pulmonology. Continue levofloxacin IV and follow urine, blood and sputum culture. Pro- calcitonin is pending. Continue insulin drip for management of hyperglycemia due to poorly controlled diabetes.
[2020-02-11 17:06] LABS: Glucose,Whole Blood 175 mg/dL (75-99)
[2020-02-11] MEDS ORDERED: SODIUM CHLORIDE 0.9% 1,000 ML IV ONE (17:46)
[2020-02-11 17:57] LABS: Glucose,Whole Blood 187 mg/dL (75-99)
[2020-02-11 19:03] LABS: Glucose,Whole Blood 164 mg/dL (75-99)
[2020-02-11 20:11] LABS: Glucose,Whole Blood 165 mg/dL (75-99)
[2020-02-11 21:09] LABS: Glucose,Whole Blood 175 mg/dL (75-99)
[2020-02-11] MEDS: CHLORHEXIDINE GLUCONATE 15 ML CUP MUCOUS MEM SCH (21:11)
[2020-02-11 22:03] LABS: Glucose,Whole Blood 185 mg/dL (75-99)
[2020-02-11 23:04] LABS: Glucose,Whole Blood 189 mg/dL (75-99)
[2020-02-12 00:09] LABS: Glucose,Whole Blood 208 mg/dL (75-99)
[2020-02-12] MEDS: PROPOFOL 1,000 MG in EMPTY BAG 1 BAG IV SCH ×5 (00:47→09:13)
[2020-02-12 00:56] LABS: Glucose,Whole Blood 172 mg/dL (75-99)
[2020-02-12 01:03] LABS: Glucose,Whole Blood 147 mg/dL (75-99)
[2020-02-12 02:05] LABS: Glucose,Whole Blood 144 mg/dL (75-99)
[2020-02-12 02:59] LABS: Glucose,Whole Blood 140 mg/dL (75-99)
[2020-02-12 04:03] LABS: Glucose,Whole Blood 174 mg/dL (75-99)
[2020-02-12 04:19] LABS: Basophils % (A) 0 %; Eosinophils # (A) 0.1 k/uL (0-0.7); Eosinophils % (A) 0 %; HCT 41.3 % (34.0-46.0); HGB 12.9 gm/dL (11.4-16.0); Hypochromasia Slight; Lymphocytes # (A) 1.9 k/uL (1.0-4.8); Lymphocytes % (A) 17 %; MCH 28.5 pg (25.0-35.0); MCHC 31.1 g/dL (31.0-37.0); MCV 91.5 fL (80.0-100.0); Mean Platelet Volume 8.3; Monocytes # (A) 0.6 k/uL (0-1.0); Monocytes % (A) 5 %; Neutrophils # (A) 8.4 k/uL (1.3-7.7); Neutrophils % (A) 75 %; Platelet Count 156 k/uL (150-450); RBC 4.52 m/uL (3.80-5.40); RDW 14.2 % (11.5-15.5); WBC 11.1 k/uL (3.8-10.6)
[2020-02-12 04:24] LABS: Albumin 2.9 g/dL (3.5-5.0); Calcium 7.3 mg/dL (8.4-10.2); Phosphorus 2.7 mg/dL (2.5-4.5); Potassium 3.6 mmol/L (3.5-5.1); Total Bilirubin 0.2 mg/dL (0.2-1.3); Total Protein 6.2 g/dL (6.3-8.2)
[2020-02-12] MEDS ORDERED: Potassium Replacement Protocol 1 EACH MISC MISCELLANE PRN (04:30)
[2020-02-12] MEDS: LEVOFLOXACIN 750MG-D5W PMX 750 MG in DEXTROSE/WATER 1 150ML.BAG IVPB SCH (04:52)
[2020-02-12] MEDS ORDERED: POTASSIUM CHLORIDE ER 20 MEQ TAB.ER PO SCH (05:00)
[2020-02-12 05:09] LABS: Glucose,Whole Blood 154 mg/dL (75-99)
[2020-02-12 06:00] LABS: Glucose,Whole Blood 237 mg/dL (75-99)
[2020-02-12 06:00] LABS: Glucose,Whole Blood 182 mg/dL (75-99)
[2020-02-12 06:00] LABS: ABG Base Excess -1.1 mmol/L; ABG HCO3 24 mmol/L (21-25); ABG Oxygen Saturation 98.9 % (94-97); ABG PCO2 44 mmHg (35-45); ABG PH 7.35 (7.35-7.45); ABG PO2 110 mmHg (83-108); ABG TCO2 26 mmol/L (19-24); Allen Test Performed? Yes
[2020-02-12] MEDS: SODIUM CHLORIDE 0.9% 1,000 ML IV SCH ×2 (06:35→18:11)
[2020-02-12 06:58] LABS: Glucose,Whole Blood 156 mg/dL (75-99)
--- NOTE | 2020-02-12 07:18 | XR ---
EXAMINATION TYPE: XR chest 1V DATE OF EXAM: 02/12/2020 COMPARISON: 02/11/2020 HISTORY: 54-year-old female follow-up intubated patient TECHNIQUE: Single frontal view of the chest is obtained. FINDINGS: ET tube tip is high at the level thoracic inlet. Advancement by 3.5 cm in reassessment follow-up. NG tube courses below the diaphragm. Left CVC tip appears to have been pulled back, now probably at the brachiocephalic vein confluence. Heart remains mildly enlarged. Retrocardiac opacity may be increased given greater degree of obscurat ion of the hemidiaphragm. Slight improvement in aeration on the right with some residual hazy density . IMPRESSION: 1. ET tube tip is high at the level of the thoracic inlet. Advance by 3.5 cm and reassess at follow-u p. 2. The left CVC seems to have been pulled back, tip probably in the region of the brachiocephalic vei n confluence now. 3. Continued cardiomegaly and increasing atelectasis and/or consolidation at the left base/retrocardi ac region. Slight improvement in aeration on the right.
[2020-02-12 07:57] LABS: Glucose,Whole Blood 176 mg/dL (75-99)
[2020-02-12] MEDS: PANTOPRAZOLE 40 MG/10 ML VIAL IV SCH (08:01)
[2020-02-12] MEDS: CHLORHEXIDINE GLUCONATE 15 ML CUP MUCOUS MEM SCH (08:01)
[2020-02-12] MEDS: HEPARIN SODIUM,PORCINE 5,000 UNIT/ML 1 ML VIAL SQ SCH ×3 (08:01→23:29)
[2020-02-12 09:05] LABS: Glucose,Whole Blood 167 mg/dL (75-99)
[2020-02-12] MEDS ORDERED: DEXMEDETOMIDINE/0.9% NACL(PMX) 400 MCG in EMPTY BAG 1 BAG IV SCH (09:30)
[2020-02-12 10:14] LABS: Glucose,Whole Blood 175 mg/dL (75-99)
[2020-02-12 11:09] LABS: Glucose,Whole Blood 188 mg/dL (75-99)
[2020-02-12 12:09] LABS: Glucose,Whole Blood 183 mg/dL (75-99)
[2020-02-12] MEDS: IPRATROPIUM-ALBUTEROL 3 ML NEB INHALATION SCH ×3 (13:00→19:44)
[2020-02-12 13:12] LABS: ABG Base Excess -1.5 mmol/L; ABG HCO3 24 mmol/L (21-25); ABG Oxygen Saturation 98.7 % (94-97); ABG PCO2 43 mmHg (35-45); ABG PH 7.35 (7.35-7.45); ABG PO2 119 mmHg (83-108); ABG TCO2 25 mmol/L (19-24); Allen Test Performed? Yes
--- NOTE | 2020-02-12 14:07 | P.PN ---
Subjective Progress Note Date: 02/12/20 This is a 54-year-old morbidly obese female patient was brought in to the ED yesterday because of diminished level of consciousness and confusion. No history was available MO's of the information was obtained from the medical records and per our discussion with the . Apparently the patient was f eeling sick for a few days prior to hospital admission. She was having altered mentation. She complained of some minimal headache. Hours prior to her presentation to the hospital. She was confused and not answering questions appropriately. The family activated EMS who arrived to the scene and the patient was noted to be somewhat altered and combative. The patient also had acute hypertensive reaction where her blood pressure was found to be 255/157 with a pulse of 120. She was placed on nonrebreather facemask with a pulse of 70%. In the ED, blood gases was done that showed a pH of 7.11 with a pCO2 of 106. At that point, the patient was intubated and placed on a mechanical ventilator. Chest x-ray post intubation showed cardiomegaly and pulmonary asked her congestion. There was some left perihilar point infiltrates and some limited infiltration of the right perihilar area. CT angiogram showed cardiomegaly along with some lower lobe at the pulmonary infiltrates in addition to hepatomegaly and fatty infiltration of the liver. The EKG showed a normal sinus rhythm. UA [place] suspicious for an underlying infection. The white cell count of 9.8 with hemoglobin 15.4. Rest of the blood work shows some mild metabolic alkalosis with a serum bicarb of 32. Glucose was 648. D-dimer was 0.6. Troponin was 0.12. This morning, the patient was seen in the intensive care unit. The patient was still intubated on mechanical ventilator. She was assist-control mode of ventilation with a rate of 20 and a tidal volume of 400 and FiO2 of 60% with a PEEP of 5. Morning blood gases showed a pH of 7.24 with a pCO2 61 and pO2 of 109. The patient was ordered to start on Levaquin suspecting an underlying UTI based on abnormal UA. The patient was a Covid negative case. The Covid night seen evaluation came back negative. The patient is currently afebrile. She is receiving IV fluids and normal saline at the rate of 1 30 mL an hour. She is sedated with propofol. She is on insulin drip that was started in the ICU for blood sugar control. She is also on heparin subcu for DVT prophylaxis. On today's evaluation of 02/12/2020, the patient remains intubated on mechanical ventilator. She is very much calm and comfortable while being on sedation and the patient is receiving propofol rate of 50 g per KG per minute. The patient is also on normal saline at the rate of 130 mL and the patient is receiving insulin drip at the rate of 4.5 units an hour. The patient is intubated on a mechanical ventilator. The patient is an assist-control mode of ventilator with a rate of 20, tidal volume of 400, FiO2 of 50% and PEEP of 5. The peak pressures 24, plateau airway pressures 14. The blood gases showed a pH of 7.35 with a pCO2 of 44 and pO2 of 110. Chest x-ray from today shows an ET tube is sitting high in the thoracic inlet. The triple-lumen catheter was adjusted and there is cardiomegaly and atelectatic changes and some limited consolidation of left lung base. Slight improvement in aeration of the right. The patient's white cell count is at 11.1. Hemoglobin was 12.9. The rest of the blood work and electrolytes showed a creatinine of 1.35. BUN is 14. Sodium is at 136. The urine cultures showing gram-negative bacillus and the final cultures and sensitivities are still pending and the patient is currently on Levaquin. Suspect an underlying urine checked infection as the main sugar for the patient's respiratory failure. Objective - Vital Signs Vital signs: Vital Signs Temp 100.0 F H 02/12/20 08:00 Pulse 102 H 02/12/20 12:48 Resp 22 02/12/20 11:00 BP 98/69 02/11/20 22:00 Pulse Ox 94 L 02/12/20 11:00 Intake & Output 02/11/20 02/12/20 02/12/20 18:59 06:59 18:59 Intake Total 4496.788 2083.577 403.411 Output Total 306 923 380 Balance 4190.788 1160.577 23.411 Weight 158.757 kg 158.757 kg Intake: IV 1103 1632 188 .9 pressure bag 57 72 18 Potassium Chloride 10 meq 6 In Water For Injection 1 100ml.bag @ 100 mls/hr IVPB Q1HR KHADIJAH Rx#: [id number] Sodium Chloride 0.9% 1, 1040 1560 170 000 ml @ 20 mls/hr IV . Q24H KHADIJAH Rx#:[id number] Intake, IV Titration 3393.788 451.577 215.411 Amount Insulin Regular 100 unit 57.083 49.195 15.411 In Sodium Chloride 0.9% 100 ml @ Per Protocol IV .Q0M KHADIJAH Rx#:[id number] Propofol 1,000 mg In 336.705 402.382 200.000 Empty Bag 1 bag @ Titrate IV .Q0M KHADIJAH Rx#: [id number] Sodium Chloride 0.9% 1, 1000 000 ml @ 999 mls/hr IV . Q1H1M ONE Rx#:[id number] Sodium Chloride 0.9% 2, 2000 000 ml @ 999 mls/hr IV . Q2H1M ONE Rx#:[id number] Output: Gastric Drainage 350 Urine 306 573 380 Other: Voiding Method Indwelling Catheter Indwelling Catheter Indwelling Catheter ABP, PAP, CO, CI - Last Documented Arterial Blood Pressure 105/56 - Exam General: Morbidly obese female, intubated, no distress, appears at stated age, she is well sedated with propofol, comfortable likely distress. Orogastric and orotracheal tube are both in place. Derm: no unusual ecchymoses, warm, dry, Examination of the skin revealed no evidence of significant rashes, suspicious appearing nevi or other concerning lesions. Head: atraumatic, normocephalic, symmetric Eyes: EOMI, no lid lag, anicteric sclera, pupils sluggishly reactive to light with spontaneous calvin nystagmus ENT: Nose and ears atraumatic Neck: No thyromegaly, no cervical lymphadenopathy, trachea midline, supple Mouth: no lip lesion Cardiovascular: S1S2 reg, no murmur, positive posterior tibial pulse bilateral, no edema, capillary refill less than 2 seconds Lungs: Scattered coarse breath sounds, no rales, no wheezing, no accessory muscle use Abdominal exam revealed normal bowel sounds. The abdomen was soft, non-tender, and without masses, organomegaly, or appreciable enlargement of the abdominal aorta. Examination of the extremities revealed easily palpable radial, femoral and pedal pulses. There was no cyanosis, clubbing or edema. Neuro: The patient easily wakes up from sedation. Nevertheless she does not get to the point where she follows commands and she becomes quite restless and agitated moving all 4 extremities. Psych: Unable to perform - Labs CBC & Chem 7: 02/12/20 04:02 02/12/20 12:39 Labs: Abnormal Lab Results - Last 24 Hours (Table) 02/11/20 02/11/20 02/11/20 Range/Units 14:02 15:08 17:05 WBC (3.8-10.6) k/uL Neutrophils # (1.3-7.7) k/uL ABG pO2 (83-108) mmHg ABG Total CO2 (19-24) mmol/L ABG O2 Saturation (94-97) % Sodium (137-145) mmol/L Creatinine (0.52-1.04) mg/dL Glucose (74-99) mg/dL POC Glucose (mg/dL) 198 H 184 H 175 H (75-99) mg/dL Calcium (8.4-10.2) mg/dL AST (14-36) U/L Total Protein (6.3-8.2) g/dL Albumin (3.5-5.0) g/dL 02/11/20 02/11/20 02/11/20 Range/Units 17:56 19:02 20:10 WBC (3.8-10.6) k/uL Neutrophils # (1.3-7.7) k/uL ABG pO2 (83-108) mmHg ABG Total CO2 (19-24) mmol/L ABG O2 Saturation (94-97) % Sodium (137-145) mmol/L Creatinine (0.52-1.04) mg/dL Glucose (74-99) mg/dL POC Glucose (mg/dL) 187 H 164 H 165 H (75-99) mg/dL Calcium (8.4-10.2) mg/dL AST (14-36) U/L Total Protein (6.3-8.2) g/dL Albumin (3.5-5.0) g/dL 02/11/20 02/11/20 02/11/20 Range/Units 21:08 22:02 23:03 WBC (3.8-10.6) k/uL Neutrophils # (1.3-7.7) k/uL ABG pO2 (83-108) mmHg ABG Total CO2 (19-24) mmol/L ABG O2 Saturation (94-97) % Sodium (137-145) mmol/L Creatinine (0.52-1.04) mg/dL Glucose (74-99) mg/dL POC Glucose (mg/dL) 175 H 185 H 189 H (75-99) mg/dL Calcium (8.4-10.2) mg/dL AST (14-36) U/L Total Protein (6.3-8.2) g/dL Albumin (3.5-5.0) g/dL 02/12/20 02/12/20 02/12/20 Range/Units 00:08 00:55 01:01 WBC (3.8-10.6) k/uL Neutrophils # (1.3-7.7) k/uL ABG pO2 (83-108) mmHg ABG Total CO2 (19-24) mmol/L ABG O2 Saturation (94-97) % Sodium (137-145) mmol/L Creatinine (0.52-1.04) mg/dL Glucose (74-99) mg/dL POC Glucose (mg/dL) 208 H 172 H 147 H (75-99) mg/dL Calcium (8.4-10.2) mg/dL AST (14-36) U/L Total Protein (6.3-8.2) g/dL Albumin (3.5-5.0) g/dL 02/12/20 02/12/20 02/12/20 Range/Units 02:03 02:58 04:02 WBC 11.1 H (3.8-10.6) k/uL Neutrophils # 8.4 H (1.3-7.7) k/uL ABG pO2 (83-108) mmHg ABG Total CO2 (19-24) mmol/L ABG O2 Saturation (94-97) % Sodium (137-145) mmol/L Creatinine (0.52-1.04) mg/dL Glucose (74-99) mg/dL POC Glucose (mg/dL) 144 H 140 H (75-99) mg/dL Calcium (8.4-10.2) mg/dL AST (14-36) U/L Total Protein (6.3-8.2) g/dL Albumin (3.5-5.0) g/dL 02/12/20 02/12/20 02/12/20 Range/Units 04:02 04:02 05:08 WBC (3.8-10.6) k/uL Neutrophils # (1.3-7.7) k/uL ABG pO2 (83-108) mmHg ABG Total CO2 (19-24) mmol/L ABG O2 Saturation (94-97) % Sodium 136 L (137-145) mmol/L Creatinine 1.35 H (0.52-1.04) mg/dL Glucose 156 H (74-99) mg/dL POC Glucose (mg/dL) 174 H 154 H (75-99) mg/dL Calcium 7.3 L (8.4-10.2) mg/dL AST 41 H (14-36) U/L Total Protein 6.2 L (6.3-8.2) g/dL Albumin 2.9 L (3.5-5.0) g/dL 02/12/20 02/12/20 02/12/20 Range/Units 05:56 05:58 05:59 WBC (3.8-10.6) k/uL Neutrophils # (1.3-7.7) k/uL ABG pO2 110 H (83-108) mmHg ABG Total CO2 26 H (19-24) mmol/L ABG O2 Saturation 98.9 H (94-97) % Sodium (137-145) mmol/L Creatinine (0.52-1.04) mg/dL Glucose (74-99) mg/dL POC Glucose (mg/dL) 237 H 182 H (75-99) mg/dL Calcium (8.4-10.2) mg/dL AST (14-36) U/L Total Protein (6.3-8.2) g/dL Albumin (3.5-5.0) g/dL 02/12/20 02/12/20 02/12/20 Range/Units 06:57 07:56 09:03 WBC (3.8-10.6) k/uL Neutrophils # (1.3-7.7) k/uL ABG pO2 (83-108) mmHg ABG Total CO2 (19-24) mmol/L ABG O2 Saturation (94-97) % Sodium (137-145) mmol/L Creatinine (0.52-1.04) mg/dL Glucose (74-99) mg/dL POC Glucose (mg/dL) 156 H 176 H 167 H (75-99) mg/dL Calcium (8.4-10.2) mg/dL AST (14-36) U/L Total Protein (6.3-8.2) g/dL Albumin (3.5-5.0) g/dL 02/12/20 02/12/20 02/12/20 Range/Units 10:12 11:08 12:08 WBC (3.8-10.6) k/uL Neutrophils # (1.3-7.7) k/uL ABG pO2 (83-108) mmHg ABG Total CO2 (19-24) mmol/L ABG O2 Saturation (94-97) % Sodium (137-145) mmol/L Creatinine (0.52-1.04) mg/dL Glucose (74-99) mg/dL POC Glucose (mg/dL) 175 H 188 H 183 H (75-99) mg/dL Calcium (8.4-10.2) mg/dL AST (14-36) U/L Total Protein (6.3-8.2) g/dL Albumin (3.5-5.0) g/dL 02/12/20 Range/Units 13:05 WBC (3.8-10.6) k/uL Neutrophils # (1.3-7.7) k/uL ABG pO2 119 H (83-108) mmHg ABG Total CO2 25 H (19-24) mmol/L ABG O2 Saturation 98.7 H (94-97) % Sodium (137-145) mmol/L Creatinine (0.52-1.04) mg/dL Glucose (74-99) mg/dL POC Glucose (mg/dL) (75-99) mg/dL Calcium (8.4-10.2) mg/dL AST (14-36) U/L Total Protein (6.3-8.2) g/dL Albumin (3.5-5.0) g/dL Microbiology - Last 24 Hours (Table) 02/11/20 09:22 Blood Culture - Preliminary Blood No Growth after 24 hours 02/11/20 01:17 Urine Culture - Preliminary Urine,Clean Catch Gram Neg Bacilli Assessment and Plan Plan: 1 altered mentation seeing in the rate to CO2 narcosis. The patient's blood gases clearly show a component of hypercapnic respiratory failure which is rather acute. This could've affected her mental status. CAT scan of the brain was essentially negative and the patient is currently intubated on mechanical ventilator and she is well sedated. I suspect that the patient's altered mentation CO2 narcosis and respiratory decompensation was related to a gram- negative urine checked infection. Doubt pneumonia. The patient on Levaquin. The patient is hemodynamically stable. The patient on no pressors. The patient has responded to IV fluids. Blood gases improved significantly. I do not think the patient is a CO2 retainer based on the absence of any significant metabolic alkalosis and her blood work from before. Based on this, I'm going to give the patient sedation holiday and possibly extubated later stage. 2 acute hypoxic/hypercapnic respiratory failure. The patient has an acute on top of chronic hypoxic/hypercapnic respiratory failure. Exact decompensating fact it is not clear although this could be related to bilateral pneumonia and possible UTI. The patient is being treated with antibiotics for now. CT angiogram showed no active abnormalities and some limited infiltration of the lung bases. There is no evidence of any pulmonary embolism. 3 morbid obesity with a BMI of 51.7, with possible component of obstructive sleep apnea 4 diabetes mellitus with elevated blood sugar and the patient is currently on insulin drip for blood sugar control, running at 4.5 units an hour 5 hypertension with a acute hypertensive reaction any type of admission, recovered 6 leukocytosis secondary to above, improved and the patient is currently on no pressors 7 poor medical follow-up and the patient does not see or be evaluated by any physician outpatient basis Plan We'll give the patient a sedation holiday We will use Precedex if there is significant agitation Urine cultures showing gram negative bacillus and the final cultures and sensitivities are still pending Cut down the IV fluids to KVO Use Desenex for agitation and discontinue the propofol Check weaning parameters if possible Consider extubating this patient to a BiPAP or even to a nonrebreather facemask depending on her overall response. I think this would be a nontraditional weaning as the patient may not follow commands or instructions regarding spontaneous breathing trials and weaning parameters measurements. continue insulin drip for blood sugar control We'll continue to follow make further recommendations based on her progress. Condition is critical and will follow and this evaluation was done and more than 30 minutes including our efforts to extubate the patient a later stage following a sedation holiday. Time with Patient: Greater than 30
[2020-02-12 14:16] LABS: Glucose,Whole Blood 181 mg/dL (75-99)
--- NOTE | 2020-02-12 14:47 | P.PN ---
Subjective Progress Note Date: 02/12/20 Principal diagnosis: Acute hypoxic respiratory failure The patient is a 54-year-old female with a PMH of hypertension (poor f/u with PMD) and morbid obesity presented to the ED, brought in by family for confusion. Apparently, patient's (Brandon via phone [phone]) who reported that the patient had been feeling somewhat ill for the past few weeks. She was however able to function for the most part and attend to her job. She however complained of a headache an hour prior to presentation and proceeded to lay down. She complained to her family that she doesn't feel well, and then became confused, not answering questions appropriately. The family activated EMS and sh e was brought in to the ED where she was noted to be altered and combative. The patient was noted to be extremely hypertensive upon arrival, with BP 255/157, pulse 120, and saturating 90% on nonrebreather mask. The patient's ABG revealed a pH of 7.11 and pCO2 106. The patient was subsequently intubated. Sedation was turned off this morning. Patient was very combative off sedation requiring Precedex and was eventually extubated. She is currently on soft restraints to her bilateral upper extremities. Sitter is at bedside. She continues to be on insulin drip. She is on levofloxacin IV. Objective - Vital Signs Vital signs: Vital Signs Temp 100.0 F H 02/12/20 08:00 Pulse 102 H 02/12/20 12:48 Resp 22 02/12/20 11:00 BP 98/69 02/11/20 22:00 Pulse Ox 94 L 02/12/20 11:00 Intake & Output 02/11/20 02/12/20 02/12/20 18:59 06:59 18:59 Intake Total 4496.788 2083.577 403.411 Output Total 306 923 380 Balance 4190.788 1160.577 23.411 Weight 158.757 kg 158.757 kg Intake: IV 1103 1632 188 .9 pressure bag 57 72 18 Potassium Chloride 10 meq 6 In Water For Injection 1 100ml.bag @ 100 mls/hr IVPB Q1HR KHADIJAH Rx#: [id number] Sodium Chloride 0.9% 1, 1040 1560 170 000 ml @ 20 mls/hr IV . Q24H KHADIJAH Rx#:[id number] Intake, IV Titration 3393.788 451.577 215.411 Amount Insulin Regular 100 unit 57.083 49.195 15.411 In Sodium Chloride 0.9% 100 ml @ Per Protocol IV .Q0M KHADIJAH Rx#:[id number] Propofol 1,000 mg In 336.705 402.382 200.000 Empty Bag 1 bag @ Titrate IV .Q0M KHADIJAH Rx#: [id number] Sodium Chloride 0.9% 1, 1000 000 ml @ 999 mls/hr IV . Q1H1M ONE Rx#:[id number] Sodium Chloride 0.9% 2, 2000 000 ml @ 999 mls/hr IV . Q2H1M ONE Rx#:[id number] Output: Gastric Drainage 350 Urine 306 573 380 Other: Voiding Method Indwelling Catheter Indwelling Catheter Indwelling Catheter ABP, PAP, CO, CI - Last Documented Arterial Blood Pressure 105/56 - Exam General: [non toxic], [combative on 2 point restraints], [appears at stated age] Derm: [warm], [dry] Head: [atraumatic], [normocephalic], [symmetric] Eyes: [EOMI], [no lid lag], [anicteric sclera] Mouth: [no lip lesion], [mucus membranes moist] Cardiovascular: [S1S2 reg], [tachycardic], [positive DP pulse bilateral], Lungs: [Decreased breath sounds bilateral], [no rhonchi, no rales] , [no accessory muscle use] Abdominal: [soft], [ nontender to palpation], [no guarding], [no appreciable organomegaly] Ext: [no gross muscle atrophy], [no edema], [no contractures], [chronic lower extremity venous stasis changes] Neuro: [no focal neuro deficits] Psych: [Nonverbal, tracking with eyes] - Labs CBC & Chem 7: 02/12/20 04:02 02/12/20 12:39 Labs: Abnormal Lab Results - Last 24 Hours (Table) 02/11/20 02/11/20 02/11/20 Range/Units 15:08 17:05 17:56 WBC (3.8-10.6) k/uL Neutrophils # (1.3-7.7) k/uL ABG pO2 (83-108) mmHg ABG Total CO2 (19-24) mmol/L ABG O2 Saturation (94-97) % Sodium (137-145) mmol/L Creatinine (0.52-1.04) mg/dL Glucose (74-99) mg/dL POC Glucose (mg/dL) 184 H 175 H 187 H (75-99) mg/dL Calcium (8.4-10.2) mg/dL AST (14-36) U/L Total Protein (6.3-8.2) g/dL Albumin (3.5-5.0) g/dL 02/11/20 02/11/20 02/11/20 Range/Units 19:02 20:10 21:08 WBC (3.8-10.6) k/uL Neutrophils # (1.3-7.7) k/uL ABG pO2 (83-108) mmHg ABG Total CO2 (19-24) mmol/L ABG O2 Saturation (94-97) % Sodium (137-145) mmol/L Creatinine (0.52-1.04) mg/dL Glucose (74-99) mg/dL POC Glucose (mg/dL) 164 H 165 H 175 H (75-99) mg/dL Calcium (8.4-10.2) mg/dL AST (14-36) U/L Total Protein (6.3-8.2) g/dL Albumin (3.5-5.0) g/dL 02/11/20 02/11/20 02/12/20 Range/Units 22:02 23:03 00:08 WBC (3.8-10.6) k/uL Neutrophils # (1.3-7.7) k/uL ABG pO2 (83-108) mmHg ABG Total CO2 (19-24) mmol/L ABG O2 Saturation (94-97) % Sodium (137-145) mmol/L Creatinine (0.52-1.04) mg/dL Glucose (74-99) mg/dL POC Glucose (mg/dL) 185 H 189 H 208 H (75-99) mg/dL Calcium (8.4-10.2) mg/dL AST (14-36) U/L Total Protein (6.3-8.2) g/dL Albumin (3.5-5.0) g/dL 02/12/20 02/12/2002/11/20 Range/Units 00:55 01:01 02:03 WBC (3.8-10.6) k/uL Neutrophils # (1.3-7.7) k/uL ABG pO2 (83-108) mmHg ABG Total CO2 (19-24) mmol/L ABG O2 Saturation (94-97) % Sodium (137-145) mmol/L Creatinine (0.52-1.04) mg/dL Glucose (74-99) mg/dL POC Glucose (mg/dL) 172 H 147 H 144 H (75-99) mg/dL Calcium (8.4-10.2) mg/dL AST (14-36) U/L Total Protein (6.3-8.2) g/dL Albumin (3.5-5.0) g/dL 02/12/20 02/12/20 02/12/20 Range/Units 02:58 04:02 04:02 WBC 11.1 H (3.8-10.6) k/uL Neutrophils # 8.4 H (1.3-7.7) k/uL ABG pO2 (83-108) mmHg ABG Total CO2 (19-24) mmol/L ABG O2 Saturation (94-97) % Sodium 136 L (137-145) mmol/L Creatinine 1.35 H (0.52-1.04) mg/dL Glucose 156 H (74-99) mg/dL POC Glucose (mg/dL) 140 H (75-99) mg/dL Calcium 7.3 L (8.4-10.2) mg/dL AST 41 H (14-36) U/L Total Protein 6.2 L (6.3-8.2) g/dL Albumin 2.9 L (3.5-5.0) g/dL 02/12/20 02/12/20 02/12/20 Range/Units 04:02 05:08 05:56 WBC (3.8-10.6) k/uL Neutrophils # (1.3-7.7) k/uL ABG pO2 (83-108) mmHg ABG Total CO2 (19-24) mmol/L ABG O2 Saturation (94-97) % Sodium (137-145) mmol/L Creatinine (0.52-1.04) mg/dL Glucose (74-99) mg/dL POC Glucose (mg/dL) 174 H 154 H 237 H (75-99) mg/dL Calcium (8.4-10.2) mg/dL AST (14-36) U/L Total Protein (6.3-8.2) g/dL Albumin (3.5-5.0) g/dL 02/12/20 02/12/20 02/12/20 Range/Units 05:58 05:59 06:57 WBC (3.8-10.6) k/uL Neutrophils # (1.3-7.7) k/uL ABG pO2 110 H (83-108) mmHg ABG Total CO2 26 H (19-24) mmol/L ABG O2 Saturation 98.9 H (94-97) % Sodium (137-145) mmol/L Creatinine (0.52-1.04) mg/dL Glucose (74-99) mg/dL POC Glucose (mg/dL) 182 H 156 H (75-99) mg/dL Calcium (8.4-10.2) mg/dL AST (14-36) U/L Total Protein (6.3-8.2) g/dL Albumin (3.5-5.0) g/dL 02/12/20 02/12/20 02/12/20 Range/Units 07:56 09:03 10:12 WBC (3.8-10.6) k/uL Neutrophils # (1.3-7.7) k/uL ABG pO2 (83-108) mmHg ABG Total CO2 (19-24) mmol/L ABG O2 Saturation (94-97) % Sodium (137-145) mmol/L Creatinine (0.52-1.04) mg/dL Glucose (74-99) mg/dL POC Glucose (mg/dL) 176 H 167 H 175 H (75-99) mg/dL Calcium (8.4-10.2) mg/dL AST (14-36) U/L Total Protein (6.3-8.2) g/dL Albumin (3.5-5.0) g/dL 02/12/20 02/12/20 02/12/20 Range/Units 11:08 12:08 13:05 WBC (3.8-10.6) k/uL Neutrophils # (1.3-7.7) k/uL ABG pO2 119 H (83-108) mmHg ABG Total CO2 25 H (19-24) mmol/L ABG O2 Saturation 98.7 H (94-97) % Sodium (137-145) mmol/L Creatinine (0.52-1.04) mg/dL Glucose (74-99) mg/dL POC Glucose (mg/dL) 188 H 183 H (75-99) mg/dL Calcium (8.4-10.2) mg/dL AST (14-36) U/L Total Protein (6.3-8.2) g/dL Albumin (3.5-5.0) g/dL 02/12/20 Range/Units 14:15 WBC (3.8-10.6) k/uL Neutrophils # (1.3-7.7) k/uL ABG pO2 (83-108) mmHg ABG Total CO2 (19-24) mmol/L ABG O2 Saturation (94-97) % Sodium (137-145) mmol/L Creatinine (0.52-1.04) mg/dL Glucose (74-99) mg/dL POC Glucose (mg/dL) 181 H (75-99) mg/dL Calcium (8.4-10.2) mg/dL AST (14-36) U/L Total Protein (6.3-8.2) g/dL Albumin (3.5-5.0) g/dL Microbiology - Last 24 Hours (Table) 02/11/20 09:22 Blood Culture - Preliminary Blood No Growth after 24 hours 02/11/20 01:17 Urine Culture - Preliminary Urine,Clean Catch Gram Neg Bacilli Assessment and Plan Assessment: Altered mental status, likely multifactorial with component of respiratory failure, hyperglycemia, uncontrolled hypertension, and UTI -Manage each as listed below -UDS negative and Alcohol negative. Elevated creatinine -Creatinine 1.35, likely prerenal -Encourage hydration by mouth Hypoxic and hypercapnic respiratory failure, likely multifactorial -Patient likely with underlying COPD, reported history of significant tobacco abuse, though states that the patient quit a few years ago -Coronavirus negative -Likely also component of obesity hypoventilation syndrome -Extubated 02/11, maintain O2 saturation greater than 92% -Management as per tipple operator Hyperglycemia, likely type II DM -Continue with insulin drip, transitioned to subcutaneous insulin when OK with tipple operator -Blood glucose monitoring -A1c 13 Abnormal UA, presumed UTI in setting of altered mental status -Start patient on Levaquin -Urine culture positive gram-negative bacilli -Follow up urine and blood cultures Hyponatremia, likely pseudo in setting of hypoglycemia -Continue to treat hyperglycemia as listed above Bilateral infiltrates on chest x-ray, presumed community acquired pneumonia -Start patient on Levaquin DVT prophylaxis -Heparin subq
[2020-02-12 14:51] LABS: Glucose,Whole Blood 174 mg/dL (75-99)
[2020-02-12] MEDS ORDERED: HALOPERIDOL LACTATE 5 MG/ML 1 ML VIAL IVP ONE ×3 (15:24→16:22)
[2020-02-12] MEDS ORDERED: HALOPERIDOL LACTATE 5 MG/ML 1 ML VIAL IVP PRN (15:44)
[2020-02-12] MEDS: DEXMEDETOMIDINE/0.9% NACL(PMX) 400 MCG in EMPTY BAG 1 BAG IV SCH ×2 (16:04→20:16)
[2020-02-12] MEDS: CLEVIDIPINE BUTYRATE 25 MG in EMPTY BAG 1 BAG IV SCH ×3 (16:05→23:29)
[2020-02-12 16:16] LABS: Glucose,Whole Blood 190 mg/dL (75-99)
[2020-02-12] MEDS: HALOPERIDOL LACTATE 5 MG/ML 1 ML VIAL IVP PRN ×2 (17:45→23:04)
[2020-02-12 17:47] LABS: Glucose,Whole Blood 227 mg/dL (75-99)
[2020-02-12] MEDS: POTASSIUM CHLORIDE 10 MEQ in WATER FOR INJECTION 1 100ML.BAG IVPB SCH ×2 (17:53→19:34)
--- NOTE | 2020-02-12 18:17 | CDI ---
Documentation Clarification Form Date: 02/12/2020 06:02:11 PM From: Tita Epps RN, CCDS Admit Date: 02/11/2020 12:36:00 AM Patient Name: Bibiana Gillette Visit Number: [id number] ATTENTION: The Clinical Documentation Specialists (CDI) and [facility] Coding Staff appreciate your assistance in clarifying documentation. Please respond to the clarification below the line at the bottom and electronically sign. The CDI & [facility] Coding staff will review the response and follow-up if needed. Please note: Queries are made part of the Legal Health Record. If you have any questions, please contact the author of this message via ITS. Dr. Schmidt Altered Mental Status was documented in the H&P and Progress notes and requires further specificity. History/Risk Factors: HTN, possible pneumonia, Morbid Obesity, DM2 with hyperglycemia Clinical Indicators: 02/10 H&P: "Altered mental status, likely multifactorial with component of respiratory failure, hyperglycemia, uncontrolled hypertension, and UTI " 02/10 Pulmonary Consult: "altered mentation seeing in the rate to CO2 narcosis. The patient's blood gases clearly show a component of hypercapnic respiratory failure which is rather acute." Labs: WBC 9.8/16.9/11.1, Glucose 648/405/156, CA+ 9/8.3/7.3 U/A: +, cx with gram neg bacilli 02/10 CXR:"Left side perihilar infiltrate unchanged." Treatment: Zithromax 500 mg IVPB x1 followed by 750 mg IVPB q 24 hrs Ceftriaxone 1Gm IVPB OT IV Mag and KCL replacement 2L IVF bolus Haldol 1 mg IVP q 1 hr prn agitation In your professional opinion, please clarify the etiology of the Altered Mental Status, if known. Metabolic Encephalopathy (specify Underlying Medical Illness) Other condition (please specify) Unable to determine (Last Revision: January 2018) MTDD
[2020-02-12] MEDS: ZIPRASIDONE 20 MG VIAL IM PRN (18:30)
[2020-02-12 18:48] LABS: Glucose,Whole Blood 200 mg/dL (75-99)
[2020-02-12] MEDS: INSULIN REGULAR 100 UNIT in SODIUM CHLORIDE 0.9% 100 ML IV SCH (19:09)
[2020-02-12 20:01] LABS: Glucose,Whole Blood 171 mg/dL (75-99)
[2020-02-12 21:03] LABS: Glucose,Whole Blood 174 mg/dL (75-99)
[2020-02-12 21:57] LABS: Glucose,Whole Blood 180 mg/dL (75-99)
[2020-02-12 23:01] LABS: Glucose,Whole Blood 173 mg/dL (75-99)
[2020-02-12 23:54] LABS: Glucose,Whole Blood 196 mg/dL (75-99)
[2020-02-13 01:09] LABS: Glucose,Whole Blood 163 mg/dL (75-99)
[2020-02-13 02:02] LABS: Glucose,Whole Blood 164 mg/dL (75-99)
[2020-02-13] MEDS: DEXMEDETOMIDINE/0.9% NACL(PMX) 400 MCG in EMPTY BAG 1 BAG IV SCH ×2 (02:43→06:10)
[2020-02-13 02:47] LABS: Glucose,Whole Blood 191 mg/dL (75-99)
[2020-02-13 04:06] LABS: Glucose,Whole Blood 199 mg/dL (75-99)
[2020-02-13 04:25] LABS: African American GFR (CKD) >90 (>60 ml/min/1.73 sqM); Anion Gap 5 mmol/L; Blood Urea Nitrogen 12 mg/dL (7-17); Calcium 7.7 mg/dL (8.4-10.2); Carbon Dioxide 24 mmol/L (22-30); Chloride 109 mmol/L (98-107); Glucose 194 mg/dL (74-99); Non-African American GFR(CKD) 84 (>60 ml/min/1.73 sqM); Potassium 3.5 mmol/L (3.5-5.1); Sodium 138 mmol/L (137-145)
[2020-02-13 04:26] LABS: Basophils % (A) 0 %; Eosinophils # (A) 0.1 k/uL (0-0.7); Eosinophils % (A) 1 %; HCT 40.9 % (34.0-46.0); HGB 13.1 gm/dL (11.4-16.0); Lymphocytes # (A) 1.8 k/uL (1.0-4.8); Lymphocytes % (A) 16 %; MCH 29.2 pg (25.0-35.0); MCHC 32.1 g/dL (31.0-37.0); MCV 91.2 fL (80.0-100.0); Mean Platelet Volume 8.5; Monocytes # (A) 0.5 k/uL (0-1.0); Monocytes % (A) 4 %; Neutrophils # (A) 8.7 k/uL (1.3-7.7); Neutrophils % (A) 78 %; Platelet Count 149 k/uL (150-450); RBC 4.49 m/uL (3.80-5.40); RDW 13.9 % (11.5-15.5); WBC 11.2 k/uL (3.8-10.6)
[2020-02-13] MEDS: LEVOFLOXACIN 750MG-D5W PMX 750 MG in DEXTROSE/WATER 1 150ML.BAG IVPB SCH (04:42)
[2020-02-13] MEDS: POTASSIUM CHLORIDE 20 MEQ in WATER FOR INJECTION 1 100ML.BAG IVPB SCH ×2 (04:42→06:46)
[2020-02-13 05:00] LABS: Glucose,Whole Blood 156 mg/dL (75-99)
[2020-02-13] MEDS: HALOPERIDOL LACTATE 5 MG/ML 1 ML VIAL IVP PRN ×3 (05:14→15:07)
[2020-02-13 05:57] LABS: Glucose,Whole Blood 190 mg/dL (75-99)
[2020-02-13] MEDS: CLEVIDIPINE BUTYRATE 25 MG in EMPTY BAG 1 BAG IV SCH ×2 (06:20→13:05)
--- NOTE | 2020-02-13 06:46 | XR ---
EXAMINATION TYPE: XR chest 1V portable DATE OF EXAM: 02/13/2020 HISTORY: SOB. REFERENCE: Previous study dated 02/12/2020. FINDINGS: The patient has been extubated. The patient's NG tube is been removed. There continues to b e a left internal jugular catheter in place. Its tip is in the SVC. There is continuing bibasilar airspace disease. The heart is mildly enlarged. Pleural spaces are ambreen r. IMPRESSION: 1. CARDIOMEGALY. 2. BIBASILAR AIRSPACE DISEASE.
[2020-02-13 07:04] LABS: Glucose,Whole Blood 231 mg/dL (75-99)
[2020-02-13 08:10] LABS: Glucose,Whole Blood 224 mg/dL (75-99)
[2020-02-13] MEDS: IPRATROPIUM-ALBUTEROL 3 ML NEB INHALATION SCH ×4 (08:11→20:35)
[2020-02-13] MEDS: HEPARIN SODIUM,PORCINE 5,000 UNIT/ML 1 ML VIAL SQ SCH ×3 (08:26→23:53)
[2020-02-13] MEDS: PANTOPRAZOLE 40 MG/10 ML VIAL IV SCH (08:26)
[2020-02-13 09:05] LABS: Glucose,Whole Blood 162 mg/dL (75-99)
[2020-02-13 10:14] LABS: Glucose,Whole Blood 174 mg/dL (75-99)
[2020-02-13 11:04] LABS: Glucose,Whole Blood 182 mg/dL (75-99)
[2020-02-13 11:57] LABS: Glucose,Whole Blood 167 mg/dL (75-99)
--- NOTE | 2020-02-13 12:18 | P.PN ---
Subjective Progress Note Date: 02/13/20 This is a 54-year-old morbidly obese female patient was brought in to the ED yesterday because of diminished level of consciousness and confusion. No history was available MO's of the information was obtained from the medical records and per our discussion with the . Apparently the patient was f eeling sick for a few days prior to hospital admission. She was having altered mentation. She complained of some minimal headache. Hours prior to her presentation to the hospital. She was confused and not answering questions appropriately. The family activated EMS who arrived to the scene and the patient was noted to be somewhat altered and combative. The patient also had acute hypertensive reaction where her blood pressure was found to be 255/157 with a pulse of 120. She was placed on nonrebreather facemask with a pulse of 70%. In the ED, blood gases was done that showed a pH of 7.11 with a pCO2 of 106. At that point, the patient was intubated and placed on a mechanical ventilator. Chest x-ray post intubation showed cardiomegaly and pulmonary asked her congestion. There was some left perihilar point infiltrates and some limited infiltration of the right perihilar area. CT angiogram showed cardiomegaly along with some lower lobe at the pulmonary infiltrates in addition to hepatomegaly and fatty infiltration of the liver. The EKG showed a normal sinus rhythm. UA [place] suspicious for an underlying infection. The white cell count of 9.8 with hemoglobin 15.4. Rest of the blood work shows some mild metabolic alkalosis with a serum bicarb of 32. Glucose was 648. D-dimer was 0.6. Troponin was 0.12. This morning, the patient was seen in the intensive care unit. The patient was still intubated on mechanical ventilator. She was assist-control mode of ventilation with a rate of 20 and a tidal volume of 400 and FiO2 of 60% with a PEEP of 5. Morning blood gases showed a pH of 7.24 with a pCO2 61 and pO2 of 109. The patient was ordered to start on Levaquin suspecting an underlying UTI based on abnormal UA. The patient was a Covid negative case. The Covid night seen evaluation came back negative. The patient is currently afebrile. She is receiving IV fluids and normal saline at the rate of 1 30 mL an hour. She is sedated with propofol. She is on insulin drip that was started in the ICU for blood sugar control. She is also on heparin subcu for DVT prophylaxis. On today's evaluation of 02/12/2020, the patient remains intubated on mechanical ventilator. She is very much calm and comfortable while being on sedation and the patient is receiving propofol rate of 50 g per KG per minute. The patient is also on normal saline at the rate of 130 mL and the patient is receiving insulin drip at the rate of 4.5 units an hour. The patient is intubated on a mechanical ventilator. The patient is an assist-control mode of ventilator with a rate of 20, tidal volume of 400, FiO2 of 50% and PEEP of 5. The peak pressures 24, plateau airway pressures 14. The blood gases showed a pH of 7.35 with a pCO2 of 44 and pO2 of 110. Chest x-ray from today shows an ET tube is sitting high in the thoracic inlet. The triple-lumen catheter was adjusted and there is cardiomegaly and atelectatic changes and some limited consolidation of left lung base. Slight improvement in aeration of the right. The patient's white cell count is at 11.1. Hemoglobin was 12.9. The rest of the blood work and electrolytes showed a creatinine of 1.35. BUN is 14. Sodium is at 136. The urine cultures showing gram-negative bacillus and the final cultures and sensitivities are still pending and the patient is currently on Levaquin. Suspect an underlying urine checked infection as the main sugar for the patient's respiratory failure. On 02/13/2020 the patient is being seen for a follow-up noted the patient was extubated yesterday and post exhibition the patient became quite restless and agitated. She was very much combative. At that point, I give her Haldol and she received a total of 13 mg of Haldol and she was placed on Precedex drip and the dose was titrated to control her restlessness and agitation. This morning she is on 0.7 g of Precedex. Overnight she also required Geodon where she was given 10 mg IV push and this medication has been ordered to be given every 6 hours as needed. Progressively she improved. She settled down. This morning although sleepy and lethargic, she is more appropriate and she is communicating and answering questions appropriately pH also stated that her mouth is dry and she is requesting oral intake. She is a bit unreasonable as the patient also wants to go home. I told that this is not possible as the patient is still recovering from respiratory failure and underlying urine checked infection. She remains on Levaquin. She has no signs of any significant respiratory distress and the patient is on oxygen at 4 liters by O2. Several packs is being utilized for blood pressure control. He is currently at 1 mg an hour of several packs. The patient also has a normal white count of 11.2. The blood gases from yesterday showed no significant CO2 retention post extubation patient's pH was 7.34 with a pCO2 of 43. Rest of the blood work and electrodes are all within normal limits. The urine culture was positive for E. coli and this was sensitive to quinolones and the patient remains to be on Levaquin for now. The chest x-ray from today shows some cardiomegaly and some bibasilar airspace disease. Objective - Vital Signs Vital signs: Vital Signs Temp 98.7 F 02/13/20 08:00 Pulse 103 H 02/13/20 11:45 Resp 12 02/13/20 10:00 BP 157/89 02/13/20 10:00 Pulse Ox 94 L 02/13/20 10:00 Intake & Output 02/12/20 02/13/20 02/13/20 18:59 06:59 18:59 Intake Total 1385.498 827.345 193.816 Output Total 918 710 395 Balance 467.498 117.345 -201.184 Weight 158.757 kg Intake: IV 1036 392 78 .9 pressure bag 66 72 18 Sodium Chloride 0.9% 1, 970 320 60 000 ml @ 20 mls/hr IV . Q24H [facility]IJ[facility] Rx#:[id number] Intake, IV Titration 349.498 435.345 115.816 Amount Clevidipine Butyrate 25 95.351 mg In Empty Bag 1 bag @ 1 MG/HR 2 mls/hr IV .Q24H [facility]IJ[facility] Rx#:[id number] Dexmedetomidine/0.9% NaCl 6.152 289.696 88.310 (Pmx) 400 mcg In Empty Bag 1 bag @ Titrate IV . Q0M [facility]IJ[facility] Rx#:[id number] Insulin Regular 100 unit 43.346 50.298 27.506 In Sodium Chloride 0.9% 100 ml @ Per Protocol IV .Q0M [facility]IJ[facility] Rx#:[id number] Potassium Chloride 10 meq 100 In Water For Injection 1 100ml.bag @ 100 mls/hr IVPB Q1H [facility]IJ[facility] Rx#: [id number] Propofol 1,000 mg In 200.000 Empty Bag 1 bag @ Titrate IV .Q0M KHADIJAH Rx#: [id number] Output: Urine 918 710 395 Other: Voiding Method Indwelling Catheter Indwelling Catheter ABP, PAP, CO, CI - Last Documented Arterial Blood Pressure 163/84 - Exam General: Morbidly obese female, extubated, still sedated and she is arousable and she is following commands and answering questions. She was quite agitated yesterday and his agitation is improved with utilization of beer done and Haldol and Precedex. Derm: no unusual ecchymoses, warm, dry, Examination of the skin revealed no evidence of significant rashes, suspicious appearing nevi or other concerning lesions. Head: atraumatic, normocephalic, symmetric Eyes: EOMI, no lid lag, anicteric sclera, pupils sluggishly reactive to light with spontaneous calvin nystagmus ENT: Nose and ears atraumatic Neck: No thyromegaly, no cervical lymphadenopathy, trachea midline, supple Mouth: no lip lesion Cardiovascular: S1S2 reg, no murmur, positive posterior tibial pulse bilateral, no edema, capillary refill less than 2 seconds Lungs: Scattered coarse breath sounds, no rales, no wheezing, no accessory muscle use Abdominal exam revealed normal bowel sounds. The abdomen was soft, non-tender, and without masses, organomegaly, or appreciable enlargement of the abdominal aorta. Examination of the extremities revealed easily palpable radial, femoral and pedal pulses. There was no cyanosis, clubbing or edema. Neuro: The patient is drowsy yet arousable. She is moving all 4 extremities without any limitation.. In fact, the patient is quite strong and she has significant strength in her upper and lower extremities. She has an adequate urine reflex. Facial features are symmetrical and the patient has no facial asymmetry. No Babinski. No clonus. No neck stiffness. Psych: Unable to perform - Labs CBC & Chem 7: 02/13/20 04:00 02/13/20 11:00 Labs: Abnormal Lab Results - Last 24 Hours (Table) 02/12/20 02/12/20 02/12/20 Range/Units 13:05 14:15 14:49 WBC (3.8-10.6) k/uL Plt Count (150-450) k/uL Neutrophils # (1.3-7.7) k/uL ABG pO2 119 H (83-108) mmHg ABG Total CO2 25 H (19-24) mmol/L ABG O2 Saturation 98.7 H (94-97) % Chloride (98-107) mmol/L Glucose (74-99) mg/dL POC Glucose (mg/dL) 181 H 174 H (75-99) mg/dL Calcium (8.4-10.2) mg/dL 02/12/20 02/12/20 02/12/20 Range/Units 16:15 17:46 18:46 WBC (3.8-10.6) k/uL Plt Count (150-450) k/uL Neutrophils # (1.3-7.7) k/uL ABG pO2 (83-108) mmHg ABG Total CO2 (19-24) mmol/L ABG O2 Saturation (94-97) % Chloride (98-107) mmol/L Glucose (74-99) mg/dL POC Glucose (mg/dL) 190 H 227 H 200 H (75-99) mg/dL Calcium (8.4-10.2) mg/dL 02/12/20 02/12/20 02/12/20 Range/Units 20:00 21:02 21:56 WBC (3.8-10.6) k/uL Plt Count (150-450) k/uL Neutrophils # (1.3-7.7) k/uL ABG pO2 (83-108) mmHg ABG Total CO2 (19-24) mmol/L ABG O2 Saturation (94-97) % Chloride (98-107) mmol/L Glucose (74-99) mg/dL POC Glucose (mg/dL) 171 H 174 H 180 H (75-99) mg/dL Calcium (8.4-10.2) mg/dL 02/12/20 02/12/20 02/13/20 Range/Units 22:59 23:54 01:08 WBC (3.8-10.6) k/uL Plt Count (150-450) k/uL Neutrophils # (1.3-7.7) k/uL ABG pO2 (83-108) mmHg ABG Total CO2 (19-24) mmol/L ABG O2 Saturation (94-97) % Chloride (98-107) mmol/L Glucose (74-99) mg/dL POC Glucose (mg/dL) 173 H 196 H 163 H (75-99) mg/dL Calcium (8.4-10.2) mg/dL 02/13/20 02/13/20 02/13/20 Range/Units 02:01 02:46 04:00 WBC 11.2 H (3.8-10.6) k/uL Plt Count 149 L (150-450) k/uL Neutrophils # 8.7 H (1.3-7.7) k/uL ABG pO2 (83-108) mmHg ABG Total CO2 (19-24) mmol/L ABG O2 Saturation (94-97) % Chloride (98-107) mmol/L Glucose (74-99) mg/dL POC Glucose (mg/dL) 164 H 191 H (75-99) mg/dL Calcium (8.4-10.2) mg/dL 02/13/20 02/13/20 02/13/20 Range/Units 04:00 04:04 04:59 WBC (3.8-10.6) k/uL Plt Count (150-450) k/uL Neutrophils # (1.3-7.7) k/uL ABG pO2 (83-108) mmHg ABG Total CO2 (19-24) mmol/L ABG O2 Saturation (94-97) % Chloride 109 H (98-107) mmol/L Glucose 194 H (74-99) mg/dL POC Glucose (mg/dL) 199 H 156 H (75-99) mg/dL Calcium 7.7 L (8.4-10.2) mg/dL 02/13/20 02/13/20 02/13/20 Range/Units 05:55 07:03 08:09 WBC (3.8-10.6) k/uL Plt Count (150-450) k/uL Neutrophils # (1.3-7.7) k/uL ABG pO2 (83-108) mmHg ABG Total CO2 (19-24) mmol/L ABG O2 Saturation (94-97) % Chloride (98-107) mmol/L Glucose (74-99) mg/dL POC Glucose (mg/dL) 190 H 231 H 224 H (75-99) mg/dL Calcium (8.4-10.2) mg/dL 02/13/20 02/13/20 02/13/20 Range/Units 09:04 10:12 11:02 WBC (3.8-10.6) k/uL Plt Count (150-450) k/uL Neutrophils # (1.3-7.7) k/uL ABG pO2 (83-108) mmHg ABG Total CO2 (19-24) mmol/L ABG O2 Saturation (94-97) % Chloride (98-107) mmol/L Glucose (74-99) mg/dL POC Glucose (mg/dL) 162 H 174 H 182 H (75-99) mg/dL Calcium (8.4-10.2) mg/dL 02/13/20 Range/Units 11:55 WBC (3.8-10.6) k/uL Plt Count (150-450) k/uL Neutrophils # (1.3-7.7) k/uL ABG pO2 (83-108) mmHg ABG Total CO2 (19-24) mmol/L ABG O2 Saturation (94-97) % Chloride (98-107) mmol/L Glucose (74-99) mg/dL POC Glucose (mg/dL) 167 H (75-99) mg/dL Calcium (8.4-10.2) mg/dL Microbiology - Last 24 Hours (Table) 02/11/20 09:22 Blood Culture - Preliminary Blood No Growth after 48 hours 02/11/20 01:17 Urine Culture - Final Urine,Clean Catch Escherichia coli Assessment and Plan Plan: 1 altered mentation seeing in the rate to CO2 narcosis. The patient was treated for an underlying UTI. CO2 narcosis was also eliminated by the use of mechanical ventilation. Subsequently the patient was extubated. In terms of her mental status, she became quite agitated and restless and the fetus yesterday which ultimately improved utilizing a combination of ear down, Haldol and Precedex drip is being gradually weaned off for now. The blood gases post extubation showed no evidence of any significant CO2 retention. 2 acute hypoxic/hypercapnic respiratory failure. The patient has an acute on top of chronic hypoxic/hypercapnic respiratory failure. Exact decompensating fact it is not clear although this could be related to bilateral pneumonia and possible UTI. The patient is being treated with antibiotics for now. CT angiogram showed no active abnormalities and some limited infiltration of the lung bases. There is no evidence of any pulmonary embolism. The patient was also diagnosed having an E. coli UTI. The patient is currently on Levaquin. She was extubated and currently she is on 42 proximal nasal cannula. 3 morbid obesity with a BMI of 51.7, with possible component of obstructive sleep apnea 4 diabetes mellitus with elevated blood sugar and the patient is currently on insulin drip for blood sugar control, running at 4.5 units an hour 5 hypertension with a acute hypertensive reaction any type of admission, recovered 6 leukocytosis secondary to above, improved and the patient is currently on no pressors 7 poor medical follow-up and the patient does not see or be evaluated by any physician outpatient basis 8 E. coli UTI. Plan wean off Precedex and discontinue Gradually wean off the claviprex drip which is mainly being utilized for blood pressure control E. coli UTI and the patient is currently on Levaquin and this will be continued Continue monitoring the mental status. Utilizes a combination of Geodon and Haldol for agitation or dream if any Continue with insulin drip for blood sugar control Monitor for status and provide the patient incentive spirometer Continue same antibiotic coverage We'll continue to follow and will make further recommendations based on her progress.
[2020-02-13 12:59] LABS: Glucose,Whole Blood 181 mg/dL (75-99)
[2020-02-13] MEDS: amLODIPine 10 MG TAB PO SCH (13:11)
[2020-02-13 14:03] LABS: Glucose,Whole Blood 233 mg/dL (75-99)
[2020-02-13 15:07] LABS: Glucose,Whole Blood 246 mg/dL (75-99)
[2020-02-13] MEDS: ZIPRASIDONE 20 MG VIAL IM PRN (15:18)
[2020-02-13] MEDS: SODIUM CHLORIDE 0.9% 1,000 ML IV SCH (16:07)
[2020-02-13 16:09] LABS: Glucose,Whole Blood 204 mg/dL (75-99)
--- NOTE | 2020-02-13 16:42 | P.PN ---
Subjective Progress Note Date: 02/13/20 Principal diagnosis: Acute hypoxic respiratory failure The patient is a 54-year-old female with a PMH of hypertension (poor f/u with PMD) and morbid obesity presented to the ED, brought in by family for confusion. Apparently, patient's (Brandon via phone [phone]) who reported that the patient had been feeling somewhat ill for the past few weeks. She was however able to function for the most part and attend to her job. She however complained of a headache an hour prior to presentation and proceeded to lay down. She complained to her family that she doesn't feel well, and then became confused, not answering questions appropriately. The family activated EMS and sh e was brought in to the ED where she was noted to be altered and combative. The patient was noted to be extremely hypertensive upon arrival, with BP 255/157, pulse 120, and saturating 90% on nonrebreather mask. The patient's ABG revealed a pH of 7.11 and pCO2 106. The patient was subsequently intubated. She was extubated on 02/12/2020. Patient was extubated yesterday. Mentation is greatly improved. Sitter is at bedside. Patient currently sitting up in a reclining chair. She has no compla ints at this time. She denies any chest pain, shortness of breath or palpitations. No nausea or vomiting. No fever or chills. She is currently on 4 L nasal cannula. She is currently receiving clevidipine drip to maintain blood pressure. She continues to be on insulin drip. She is on levofloxacin IV. Objective - Vital Signs Vital signs: Vital Signs Temp 98.6 F 02/13/20 12:00 Pulse 98 02/13/20 16:11 Resp 20 02/13/20 14:00 BP 180/87 02/13/20 14:00 Pulse Ox 96 02/13/20 14:00 Intake & Output 02/12/20 02/13/20 02/13/20 18:59 06:59 18:59 Intake Total 1385.498 827.345 367.495 Output Total 890 878 3775 Balance 467.498 117.345 -677.505 Weight 158.757 kg Intake: IV 1036 392 182 .9 pressure bag 66 72 42 Sodium Chloride 0.9% 1, 970 320 140 000 ml @ 20 mls/hr IV . Q24H [facility] Rx#:[id number] Intake, IV Titration 349.498 435.345 185.495 Amount Clevidipine Butyrate 25 95.351 50 mg In Empty Bag 1 bag @ 1 MG/HR 2 mls/hr IV .Q24H [facility] Rx#:[id number] Dexmedetomidine/0.9% NaCl 6.152 289.696 88.310 (Pmx) 400 mcg In Empty Bag 1 bag @ Titrate IV . Q0M [facility] Rx#:[id number] Insulin Regular 100 unit 43.346 50.298 47.185 In Sodium Chloride 0.9% 100 ml @ Per Protocol IV .Q0M [facility] Rx#:[id number] Potassium Chloride 10 meq 100 In Water For Injection 1 100ml.bag @ 100 mls/hr IVPB Q1H [facility] Rx#: [id number] Propofol 1,000 mg In 200.000 Empty Bag 1 bag @ Titrate IV .Q0M [facility]ADIJ[facility] Rx#: [id number] Output: Urine 208 277 3723 Other: Voiding Method Indwelling Catheter Indwelling Catheter Indwelling Catheter ABP, PAP, CO, CI - Last Documented Arterial Blood Pressure 169/82 - Exam General: [non toxic], [no distress on 4 L nasal cannula], [appears at stated age], [morbidly obese] Derm: [warm], [dry] Head: [atraumatic], [normocephalic], [symmetric] Eyes: [EOMI], [no lid lag], [anicteric sclera] Mouth: [no lip lesion], [mucus membranes moist] Cardiovascular: [S1S2 reg], [tachycardic], [positive DP pulse bilateral], Lungs: [Decreased breath sounds bilateral], [no rhonchi, no rales] , [no accessory muscle use] Abdominal: [soft], [ nontender to palpation], [no guarding], [no appreciable organomegaly] Ext: [no gross muscle atrophy], [no edema], [no contractures], [chronic lower extremity venous stasis changes] Neuro: [no focal neuro deficits] Psych: [Alert and oriented] - Labs CBC & Chem 7: 02/13/20 04:00 02/13/20 11:00 Labs: Abnormal Lab Results - Last 24 Hours (Table) 02/12/20 02/12/20 02/12/20 Range/Units 17:46 18:46 20:00 WBC (3.8-10.6) k/uL Plt Count (150-450) k/uL Neutrophils # (1.3-7.7) k/uL Chloride (98-107) mmol/L Glucose (74-99) mg/dL POC Glucose (mg/dL) 227 H 200 H 171 H (75-99) mg/dL Calcium (8.4-10.2) mg/dL 02/12/20 02/12/20 02/12/20 Range/Units 21:02 21:56 22:59 WBC (3.8-10.6) k/uL Plt Count (150-450) k/uL Neutrophils # (1.3-7.7) k/uL Chloride (98-107) mmol/L Glucose (74-99) mg/dL POC Glucose (mg/dL) 174 H 180 H 173 H (75-99) mg/dL Calcium (8.4-10.2) mg/dL 02/12/20 02/13/20 02/13/20 Range/Units 23:54 01:08 02:01 WBC (3.8-10.6) k/uL Plt Count (150-450) k/uL Neutrophils # (1.3-7.7) k/uL Chloride (98-107) mmol/L Glucose (74-99) mg/dL POC Glucose (mg/dL) 196 H 163 H 164 H (75-99) mg/dL Calcium (8.4-10.2) mg/dL 02/13/20 02/13/20 02/13/20 Range/Units 02:46 04:00 04:00 WBC 11.2 H (3.8-10.6) k/uL Plt Count 149 L (150-450) k/uL Neutrophils # 8.7 H (1.3-7.7) k/uL Chloride 109 H (98-107) mmol/L Glucose 194 H (74-99) mg/dL POC Glucose (mg/dL) 191 H (75-99) mg/dL Calcium 7.7 L (8.4-10.2) mg/dL 02/13/20 02/13/20 02/13/20 Range/Units 04:04 04:59 05:55 WBC (3.8-10.6) k/uL Plt Count (150-450) k/uL Neutrophils # (1.3-7.7) k/uL Chloride (98-107) mmol/L Glucose (74-99) mg/dL POC Glucose (mg/dL) 199 H 156 H 190 H (75-99) mg/dL Calcium (8.4-10.2) mg/dL 02/13/20 02/13/20 02/13/20 Range/Units 07:03 08:09 09:04 WBC (3.8-10.6) k/uL Plt Count (150-450) k/uL Neutrophils # (1.3-7.7) k/uL Chloride (98-107) mmol/L Glucose (74-99) mg/dL POC Glucose (mg/dL) 231 H 224 H 162 H (75-99) mg/dL Calcium (8.4-10.2) mg/dL 02/13/20 02/13/20 02/13/20 Range/Units 10:12 11:02 11:55 WBC (3.8-10.6) k/uL Plt Count (150-450) k/uL Neutrophils # (1.3-7.7) k/uL Chloride (98-107) mmol/L Glucose (74-99) mg/dL POC Glucose (mg/dL) 174 H 182 H 167 H (75-99) mg/dL Calcium (8.4-10.2) mg/dL 02/13/20 02/13/20 02/13/20 Range/Units 12:57 14:01 15:04 WBC (3.8-10.6) k/uL Plt Count (150-450) k/uL Neutrophils # (1.3-7.7) k/uL Chloride (98-107) mmol/L Glucose (74-99) mg/dL POC Glucose (mg/dL) 181 H 233 H 246 H (75-99) mg/dL Calcium (8.4-10.2) mg/dL 02/13/20 Range/Units 16:07 WBC (3.8-10.6) k/uL Plt Count (150-450) k/uL Neutrophils # (1.3-7.7) k/uL Chloride (98-107) mmol/L Glucose (74-99) mg/dL POC Glucose (mg/dL) 204 H (75-99) mg/dL Calcium (8.4-10.2) mg/dL Microbiology - Last 24 Hours (Table) 02/11/20 09:22 Blood Culture - Preliminary Blood No Growth after 48 hours 02/11/20 01:17 Urine Culture - Final Urine,Clean Catch Escherichia coli Assessment and Plan Assessment: Altered mental status, likely multifactorial with component of respiratory failure, hyperglycemia, uncontrolled hypertension, and UTI -Manage each as listed below -UDS negative and Alcohol negative. Uncontrolled hypertension -BP 180/87 -Continue clevidipine drip -Oral antihypertensive as per pulmonology Hypoxic and hypercapnic respiratory failure, likely multifactorial -Patient likely with underlying COPD, reported history of significant tobacco abuse, though states that the patient quit a few years ago -Coronavirus negative -Likely also component of obesity hypoventilation syndrome -Extubated 02/11, maintain O2 saturation greater than 92% -Management as per access rn Hyperglycemia, likely type II DM -Continue with insulin drip, transitioned to subcutaneous insulin when OK with access rn -Blood glucose monitoring -A1c 13 Abnormal UA, presumed UTI in setting of altered mental status -Continue Levaquin -Urine culture positive for E. coli pansensitive -Follow up urine and blood cultures Bilateral infiltrates on chest x-ray, presumed community acquired pneumonia -Start patient on Levaquin DVT prophylaxis -Heparin subq
[2020-02-13 17:02] LABS: Glucose,Whole Blood 201 mg/dL (75-99)
[2020-02-13 17:58] LABS: Glucose,Whole Blood 196 mg/dL (75-99)
[2020-02-13 19:03] LABS: Glucose,Whole Blood 193 mg/dL (75-99)
[2020-02-13 19:54] LABS: Glucose,Whole Blood 189 mg/dL (75-99)
[2020-02-13 21:02] LABS: Glucose,Whole Blood 169 mg/dL (75-99)
[2020-02-13] MEDS: INSULIN REGULAR 100 UNIT in SODIUM CHLORIDE 0.9% 100 ML IV SCH (21:21)
[2020-02-13] MEDS: cloNIDine HCL 0.2 MG TAB PO SCH (21:21)
[2020-02-13 22:10] LABS: Glucose,Whole Blood 190 mg/dL (75-99)
[2020-02-13 23:02] LABS: Glucose,Whole Blood 188 mg/dL (75-99)
[2020-02-13 23:56] LABS: Glucose,Whole Blood 169 mg/dL (75-99)
[2020-02-14 01:03] LABS: Glucose,Whole Blood 170 mg/dL (75-99)
[2020-02-14] MEDS: HALOPERIDOL LACTATE 5 MG/ML 1 ML VIAL IVP PRN (01:11)
[2020-02-14 02:01] LABS: Glucose,Whole Blood 174 mg/dL (75-99)
[2020-02-14 04:01] LABS: Glucose,Whole Blood 156 mg/dL (75-99)
[2020-02-14 04:58] LABS: Basophils % (A) 0 %; Eosinophils # (A) 0.1 k/uL (0-0.7); Eosinophils % (A) 1 %; HCT 38.7 % (34.0-46.0); HGB 12.9 gm/dL (11.4-16.0); Lymphocytes # (A) 1.3 k/uL (1.0-4.8); Lymphocytes % (A) 12 %; MCH 29.1 pg (25.0-35.0); MCHC 33.4 g/dL (31.0-37.0); MCV 87.2 fL (80.0-100.0); Mean Platelet Volume 8.6; Monocytes # (A) 0.5 k/uL (0-1.0); Monocytes % (A) 5 %; Neutrophils # (A) 8.6 k/uL (1.3-7.7); Neutrophils % (A) 81 %; Platelet Count 145 k/uL (150-450); RBC 4.43 m/uL (3.80-5.40); RDW 13.8 % (11.5-15.5); WBC 10.6 k/uL (3.8-10.6)
[2020-02-14 05:07] LABS: African American GFR (CKD) >90 (>60 ml/min/1.73 sqM); Anion Gap 3 mmol/L; Blood Urea Nitrogen 5 mg/dL (7-17); Calcium 7.9 mg/dL (8.4-10.2); Carbon Dioxide 29 mmol/L (22-30); Chloride 106 mmol/L (98-107); Glucose 165 mg/dL (74-99); Non-African American GFR(CKD) >90 (>60 ml/min/1.73 sqM); Potassium 3.1 mmol/L (3.5-5.1); Sodium 138 mmol/L (137-145)
[2020-02-14] MEDS: LEVOFLOXACIN 750MG-D5W PMX 750 MG in DEXTROSE/WATER 1 150ML.BAG IVPB SCH (05:34)
[2020-02-14] MEDS: POTASSIUM CHLORIDE ER 20 MEQ TAB.ER PO SCH ×2 (05:34→06:21)
[2020-02-14 06:01] LABS: Glucose,Whole Blood 162 mg/dL (75-99)
[2020-02-14 08:03] LABS: Glucose,Whole Blood 157 mg/dL (75-99)
[2020-02-14] MEDS: IPRATROPIUM-ALBUTEROL 3 ML NEB INHALATION SCH ×4 (08:22→19:05)
[2020-02-14] MEDS: HEPARIN SODIUM,PORCINE 5,000 UNIT/ML 1 ML VIAL SQ SCH ×3 (08:24→23:53)
[2020-02-14] MEDS: cloNIDine HCL 0.2 MG TAB PO SCH ×3 (08:24→20:16)
[2020-02-14] MEDS: amLODIPine 10 MG TAB PO SCH (08:24)
[2020-02-14] MEDS: PANTOPRAZOLE 40 MG/10 ML VIAL IV SCH (08:24)
[2020-02-14] MEDS: metFORMIN 500 MG TAB PO SCH ×2 (09:15→16:59)
[2020-02-14] MEDS: LISINOPRIL-HCTZ 20-25 MG 1 EACH TAB PO SCH (10:11)
[2020-02-14 12:05] LABS: Glucose,Whole Blood 159 mg/dL (75-99)
--- NOTE | 2020-02-14 12:42 | P.PN ---
Subjective Progress Note Date: 02/14/20 This is a 54-year-old morbidly obese female patient was brought in to the ED yesterday because of diminished level of consciousness and confusion. No history was available MO's of the information was obtained from the medical records and per our discussion with the . Apparently the patient was f eeling sick for a few days prior to hospital admission. She was having altered mentation. She complained of some minimal headache. Hours prior to her presentation to the hospital. She was confused and not answering questions appropriately. The family activated EMS who arrived to the scene and the patient was noted to be somewhat altered and combative. The patient also had acute hypertensive reaction where her blood pressure was found to be 255/157 with a pulse of 120. She was placed on nonrebreather facemask with a pulse of 70%. In the ED, blood gases was done that showed a pH of 7.11 with a pCO2 of 106. At that point, the patient was intubated and placed on a mechanical ventilator. Chest x-ray post intubation showed cardiomegaly and pulmonary asked her congestion. There was some left perihilar point infiltrates and some limited infiltration of the right perihilar area. CT angiogram showed cardiomegaly along with some lower lobe at the pulmonary infiltrates in addition to hepatomegaly and fatty infiltration of the liver. The EKG showed a normal sinus rhythm. UA [place] suspicious for an underlying infection. The white cell count of 9.8 with hemoglobin 15.4. Rest of the blood work shows some mild metabolic alkalosis with a serum bicarb of 32. Glucose was 648. D-dimer was 0.6. Troponin was 0.12. This morning, the patient was seen in the intensive care unit. The patient was still intubated on mechanical ventilator. She was assist-control mode of ventilation with a rate of 20 and a tidal volume of 400 and FiO2 of 60% with a PEEP of 5. Morning blood gases showed a pH of 7.24 with a pCO2 61 and pO2 of 109. The patient was ordered to start on Levaquin suspecting an underlying UTI based on abnormal UA. The patient was a Covid negative case. The Covid night seen evaluation came back negative. The patient is currently afebrile. She is receiving IV fluids and normal saline at the rate of 1 30 mL an hour. She is sedated with propofol. She is on insulin drip that was started in the ICU for blood sugar control. She is also on heparin subcu for DVT prophylaxis. On today's evaluation of 02/12/2020, the patient remains intubated on mechanical ventilator. She is very much calm and comfortable while being on sedation and the patient is receiving propofol rate of 50 g per KG per minute. The patient is also on normal saline at the rate of 130 mL and the patient is receiving insulin drip at the rate of 4.5 units an hour. The patient is intubated on a mechanical ventilator. The patient is an assist-control mode of ventilator with a rate of 20, tidal volume of 400, FiO2 of 50% and PEEP of 5. The peak pressures 24, plateau airway pressures 14. The blood gases showed a pH of 7.35 with a pCO2 of 44 and pO2 of 110. Chest x-ray from today shows an ET tube is sitting high in the thoracic inlet. The triple-lumen catheter was adjusted and there is cardiomegaly and atelectatic changes and some limited consolidation of left lung base. Slight improvement in aeration of the right. The patient's white cell count is at 11.1. Hemoglobin was 12.9. The rest of the blood work and electrolytes showed a creatinine of 1.35. BUN is 14. Sodium is at 136. The urine cultures showing gram-negative bacillus and the final cultures and sensitivities are still pending and the patient is currently on Levaquin. Suspect an underlying urine checked infection as the main sugar for the patient's respiratory failure. On 02/13/2020 the patient is being seen for a follow-up noted the patient was extubated yesterday and post exhibition the patient became quite restless and agitated. She was very much combative. At that point, I give her Haldol and she received a total of 13 mg of Haldol and she was placed on Precedex drip and the dose was titrated to control her restlessness and agitation. This morning she is on 0.7 g of Precedex. Overnight she also required Geodon where she was given 10 mg IV push and this medication has been ordered to be given every 6 hours as needed. Progressively she improved. She settled down. This morning although sleepy and lethargic, she is more appropriate and she is communicating and answering questions appropriately pH also stated that her mouth is dry and she is requesting oral intake. She is a bit unreasonable as the patient also wants to go home. I told that this is not possible as the patient is still recovering from respiratory failure and underlying urine checked infection. She remains on Levaquin. She has no signs of any significant respiratory distress and the patient is on oxygen at 4 liters by O2. Several packs is being utilized for blood pressure control. He is currently at 1 mg an hour of several packs. The patient also has a normal white count of 11.2. The blood gases from yesterday showed no significant CO2 retention post extubation patient's pH was 7.34 with a pCO2 of 43. Rest of the blood work and electrodes are all within normal limits. The urine culture was positive for E. coli and this was sensitive to quinolones and the patient remains to be on Levaquin for now. The chest x-ray from today shows some cardiomegaly and some bibasilar airspace disease. On 02/14/2020, the patient is on room air oxygen. She has developed significant improvement in mental status and she seems to be very calm and comfortable and cooperative and appropriate. Nevertheless, overnight, the patient became quite restless and she received again a total of 3 mg of Haldol and the dose of Geodon 10 mg IM. She is afebrile. She is hemodynamically stable. In fact she is hyp ertensive and the blood pressure medication is to be adjusted. She remains on insulin drip for blood sugar control and this is running at 2 units an hour. She has no previous history of diabetes mellitus. In regards to her hypertension, the patient was on Cleviprex drip which was discontinued. There are clevidipine drip was also discontinued. No leukocytosis. Urine cultures positive for E. coli and the patient is currently on Levaquin which will be switched to oral. The E. coli susceptible to Levaquin based on sensitivities available. Objective - Vital Signs Vital signs: Vital Signs Temp 98.7 F 02/14/20 08:00 Pulse 101 H 02/14/20 11:50 Resp 18 02/14/20 10:00 BP 156/86 02/14/20 10:00 Pulse Ox 90 L 02/14/20 10:00 Intake & Output 02/13/20 02/14/20 02/14/20 18:59 06:59 18:59 Intake Total 547.622 9138.491 112.619 Output Total 1645 2600 795 Balance -1102.162 -1167.509 -682.381 Intake: IV 312 312 104 .9 pressure bag 72 72 24 Sodium Chloride 0.9% 1, 240 240 80 000 ml @ 20 mls/hr IV . Q24H [facility] Rx#:[id number] Intake, IV Titration 230.838 40.491 8.619 Amount Clevidipine Butyrate 25 86 mg In Empty Bag 1 bag @ 1 MG/HR 2 mls/hr IV .Q24H [facility] Rx#:[id number] Dexmedetomidine/0.9% NaCl 88.310 (Pmx) 400 mcg In Empty Bag 1 bag @ Titrate IV . Q0M [facility] Rx#:[id number] Insulin Regular 100 unit 56.528 40.491 8.619 In Sodium Chloride 0.9% 100 ml @ Per Protocol IV .Q0M [facility] Rx#:[id number] Oral 120 Tube Feeding 960 Output: Urine 1645 2600 795 Other: Voiding Method Indwelling Catheter Indwelling Catheter ABP, PAP, CO, CI - Last Documented Arterial Blood Pressure 184/103 - Exam General: Morbidly obese female, extubated, currently on room air, appropriate and alert Derm: no unusual ecchymoses, warm, dry, Examination of the skin revealed no evidence of significant rashes, suspicious appearing nevi or other concerning lesions. Head: atraumatic, normocephalic, symmetric Eyes: EOMI, no lid lag, anicteric sclera, pupils equal and reactive to light ENT: Nose and ears atraumatic Neck: No thyromegaly, no cervical lymphadenopathy, trachea midline, supple Mouth: no lip lesion Cardiovascular: S1S2 reg, no murmur, positive posterior tibial pulse bilateral, no edema, capillary refill less than 2 seconds Lungs: Scattered coarse breath sounds, no rales, no wheezing, no accessory muscle use Abdominal exam revealed normal bowel sounds. The abdomen was soft, non-tender, and without masses, organomegaly, or appreciable enlargement of the abdominal aorta. Examination of the extremities revealed easily palpable radial, femoral and pedal pulses. There was no cyanosis, clubbing or edema. Neuro: Normal neurologic function, alert and oriented 3, no confusion, no agitation, no focal neurological deficit. Psych: Normal affect and there is no significant anxiety or depression - Labs CBC & Chem 7: 02/14/20 04:45 02/14/20 04:45 Labs: Abnormal Lab Results - Last 24 Hours (Table) 02/13/20 02/13/20 02/13/20 Range/Units 12:57 14:01 15:04 Plt Count (150-450) k/uL Neutrophils # (1.3-7.7) k/uL Potassium (3.5-5.1) mmol/L BUN (7-17) mg/dL Glucose (74-99) mg/dL POC Glucose (mg/dL) 181 H 233 H 246 H (75-99) mg/dL Calcium (8.4-10.2) mg/dL 02/13/20 02/13/20 02/13/20 Range/Units 16:07 17:01 17:56 Plt Count (150-450) k/uL Neutrophils # (1.3-7.7) k/uL Potassium (3.5-5.1) mmol/L BUN (7-17) mg/dL Glucose (74-99) mg/dL POC Glucose (mg/dL) 204 H 201 H 196 H (75-99) mg/dL Calcium (8.4-10.2) mg/dL 02/13/20 02/13/20 02/13/20 Range/Units 19:02 19:52 21:00 Plt Count (150-450) k/uL Neutrophils # (1.3-7.7) k/uL Potassium (3.5-5.1) mmol/L BUN (7-17) mg/dL Glucose (74-99) mg/dL POC Glucose (mg/dL) 193 H 189 H 169 H (75-99) mg/dL Calcium (8.4-10.2) mg/dL 02/13/20 02/13/20 02/13/20 Range/Units 22:09 23:01 23:55 Plt Count (150-450) k/uL Neutrophils # (1.3-7.7) k/uL Potassium (3.5-5.1) mmol/L BUN (7-17) mg/dL Glucose (74-99) mg/dL POC Glucose (mg/dL) 190 H 188 H 169 H (75-99) mg/dL Calcium (8.4-10.2) mg/dL 02/14/20 02/14/20 02/14/20 Range/Units 01:02 02:00 03:59 Plt Count (150-450) k/uL Neutrophils # (1.3-7.7) k/uL Potassium (3.5-5.1) mmol/L BUN (7-17) mg/dL Glucose (74-99) mg/dL POC Glucose (mg/dL) 170 H 174 H 156 H (75-99) mg/dL Calcium (8.4-10.2) mg/dL 02/14/20 02/14/20 02/14/20 Range/Units 04:45 04:45 06:00 Plt Count 145 L (150-450) k/uL Neutrophils # 8.6 H (1.3-7.7) k/uL Potassium 3.1 L (3.5-5.1) mmol/L BUN 5 L (7-17) mg/dL Glucose 165 H (74-99) mg/dL POC Glucose (mg/dL) 162 H (75-99) mg/dL Calcium 7.9 L (8.4-10.2) mg/dL 02/14/20 02/14/20 Range/Units 08:01 12:03 Plt Count (150-450) k/uL Neutrophils # (1.3-7.7) k/uL Potassium (3.5-5.1) mmol/L BUN (7-17) mg/dL Glucose (74-99) mg/dL POC Glucose (mg/dL) 157 H 159 H (75-99) mg/dL Calcium (8.4-10.2) mg/dL Microbiology - Last 24 Hours (Table) 02/11/20 09:22 Blood Culture - Preliminary Blood No Growth after 72 hours 02/11/20 01:17 Urine Culture - Final Urine,Clean Catch Escherichia coli Assessment and Plan Plan: 1 altered mentation seeing in the rate to CO2 narcosis. The patient was treated for an underlying UTI. CO2 narcosis was also eliminated by the use of mechanical ventilation. Subsequently the patient was extubated. In terms of her mental status, she became quite agitated and restless gradually the patient's condition improved and subsequent blood gases showed improvement in the acid-base status which was essentially normalized. 2 acute hypoxic/hypercapnic respiratory failure. The patient has an acute on top of chronic hypoxic/hypercapnic respiratory failure. Exact decompensating fact it is not clear although this could be related to bilateral pneumonia and possible UTI. The patient is being treated with antibiotics for now. CT tequila ogram showed no active abnormalities and some limited infiltration of the lung bases. There is no evidence of any pulmonary embolism. The patient was also diagnosed having an E. coli UTI. The patient is currently on Levaquin. She was extubated and currently she is on room air oxygen 3 morbid obesity with a BMI of 51.7, with possible component of obstructive sleep apnea 4 diabetes mellitus with elevated blood sugar and the patient is currently on insulin drip for blood sugar control, running at 2 units an hour 5 hypertension with a acute hypertensive reaction any type of admission, rec overed 6 leukocytosis secondary to above, improved and the patient is currently on no pressors 7 poor medical follow-up and the patient does not see or be evaluated by any physician outpatient basis 8 E. coli UTI. Plan In terms of blood pressure control, the patient is on 10 mg of Norvasc. The patient will be started on lisinopril hydrochlorothiazide 20/25 one tablet a day in addition to clonidine 0.2 mg 3 times a day. Discontinue the insulin drip Start the patient on metformin 1 g twice a day Continue Levaquin and switch her to oral antibiotics Utilizes a combination of Geodon and Haldol for agitation or dream if any Continue with insulin drip for blood sugar control Monitor the mental status and provide the patient incentive spirometer Monitor the blood sugar Monitor blood pressure We'll continue to follow and will make further recommendations based on her progress.
[2020-02-14] MEDS: INSULIN ASPART (NovoLOG) 100 UNIT/ML VIAL SQ SCH ×3 (13:11→20:15)
[2020-02-14 16:56] LABS: Glucose,Whole Blood 176 mg/dL (75-99)
[2020-02-14] MEDS: SODIUM CHLORIDE 0.9% 1,000 ML IV SCH (17:07)
--- NOTE | 2020-02-14 17:54 | P.PN ---
Subjective Progress Note Date: 02/14/20 Principal diagnosis: Acute hypoxic respiratory failure The patient is a 54-year-old female with a PMH of hypertension (poor f/u with PMD) and morbid obesity presented to the ED, brought in by family for confusion. Apparently, patient's (Brandon via phone [phone]) who reported that the patient had been feeling somewhat ill for the past few weeks. She was however able to function for the most part and attend to her job. She however complained of a headache an hour prior to presentation and proceeded to lay down. She complained to her family that she doesn't feel well, and then became confused, not answering questions appropriately. The family activated EMS and sh e was brought in to the ED where she was noted to be altered and combative. The patient was noted to be extremely hypertensive upon arrival, with BP 255/157, pulse 120, and saturating 90% on nonrebreather mask. The patient's ABG revealed a pH of 7.11 and pCO2 106. The patient was subsequently intubated. She was extubated on 02/12/2020. Mentation is greatly improved. Receiving Haldol as needed for bouts of agitation. Sitter is at bedside. She has no complaints at this time. She denies any chest pain, shortness of breath or palpitations. No nausea or vomiting. No fever or chills. She is currently on 4 L nasal cannula. Clevidipine drip discontinued. Subcutaneous insulin started. She is on levofloxacin IV. Objective - Vital Signs Vital signs: Vital Signs Temp 98.1 F 02/14/20 12:00 Pulse 104 H 02/14/20 16:00 Resp 18 02/14/20 16:00 BP 139/101 02/14/20 16:00 Pulse Ox 97 02/14/20 16:00 Intake & Output 02/13/20 02/14/20 02/14/20 18:59 06:59 18:59 Intake Total 300.769 4625.491 112.619 Output Total 1645 2600 795 Balance -1102.162 -1167.509 -682.381 Intake: IV 312 312 104 .9 pressure bag 72 72 24 Sodium Chloride 0.9% 1, 240 240 80 000 ml @ 20 mls/hr IV . Q24H [facility] Rx#:[id number] Intake, IV Titration 230.838 40.491 8.619 Amount Clevidipine Butyrate 25 86 mg In Empty Bag 1 bag @ 1 MG/HR 2 mls/hr IV .Q24H [facility] Rx#:[id number] Dexmedetomidine/0.9% NaCl 88.310 (Pmx) 400 mcg In Empty Bag 1 bag @ Titrate IV . Q0M [facility] Rx#:[id number] Insulin Regular 100 unit 56.528 40.491 8.619 In Sodium Chloride 0.9% 100 ml @ Per Protocol IV .Q0M [facility] Rx#:[id number] Oral 120 Tube Feeding 960 Output: Urine 1645 2600 795 Other: Voiding Method Indwelling Catheter Indwelling Catheter ABP, PAP, CO, CI - Last Documented Arterial Blood Pressure 184/103 - Exam General: [non toxic], [no distress on 5 L], [appears at stated age], [morbidly obese] Derm: [warm], [dry] Head: [atraumatic], [normocephalic], [symmetric] Eyes: [EOMI], [no lid lag], [anicteric sclera] Mouth: [no lip lesion], [mucus membranes moist] Cardiovascular: [S1S2 reg], [tachycardic], [positive DP pulse bilateral], Lungs: [Decreased breath sounds bilateral], [no rhonchi, no rales] , [no accessory muscle use] Abdominal: [soft], [ nontender to palpation], [no guarding], [no appreciable organomegaly] Ext: [no gross muscle atrophy], [no edema], [no contractures], [chronic lower extremity venous stasis changes] Neuro: [no focal neuro deficits] Psych: [Alert and oriented] - Labs CBC & Chem 7: 02/14/20 04:45 02/14/20 15:23 Labs: Abnormal Lab Results - Last 24 Hours (Table) 02/13/20 02/13/20 02/13/20 Range/Units 17:56 19:02 19:52 Plt Count (150-450) k/uL Neutrophils # (1.3-7.7) k/uL Potassium (3.5-5.1) mmol/L BUN (7-17) mg/dL Glucose (74-99) mg/dL POC Glucose (mg/dL) 196 H 193 H 189 H (75-99) mg/dL Calcium (8.4-10.2) mg/dL 02/13/20 02/13/20 02/13/20 Range/Units 21:00 22:09 23:01 Plt Count (150-450) k/uL Neutrophils # (1.3-7.7) k/uL Potassium (3.5-5.1) mmol/L BUN (7-17) mg/dL Glucose (74-99) mg/dL POC Glucose (mg/dL) 169 H 190 H 188 H (75-99) mg/dL Calcium (8.4-10.2) mg/dL 02/13/20 02/14/20 02/14/20 Range/Units 23:55 01:02 02:00 Plt Count (150-450) k/uL Neutrophils # (1.3-7.7) k/uL Potassium (3.5-5.1) mmol/L BUN (7-17) mg/dL Glucose (74-99) mg/dL POC Glucose (mg/dL) 169 H 170 H 174 H (75-99) mg/dL Calcium (8.4-10.2) mg/dL 02/14/20 02/14/20 02/14/20 Range/Units 03:59 04:45 04:45 Plt Count 145 L (150-450) k/uL Neutrophils # 8.6 H (1.3-7.7) k/uL Potassium 3.1 L (3.5-5.1) mmol/L BUN 5 L (7-17) mg/dL Glucose 165 H (74-99) mg/dL POC Glucose (mg/dL) 156 H (75-99) mg/dL Calcium 7.9 L (8.4-10.2) mg/dL 02/14/20 02/14/20 02/14/20 Range/Units 06:00 08:01 12:03 Plt Count (150-450) k/uL Neutrophils # (1.3-7.7) k/uL Potassium (3.5-5.1) mmol/L BUN (7-17) mg/dL Glucose (74-99) mg/dL POC Glucose (mg/dL) 162 H 157 H 159 H (75-99) mg/dL Calcium (8.4-10.2) mg/dL 02/14/20 Range/Units 16:54 Plt Count (150-450) k/uL Neutrophils # (1.3-7.7) k/uL Potassium (3.5-5.1) mmol/L BUN (7-17) mg/dL Glucose (74-99) mg/dL POC Glucose (mg/dL) 176 H (75-99) mg/dL Calcium (8.4-10.2) mg/dL Microbiology - Last 24 Hours (Table) 02/11/20 09:22 Blood Culture - Preliminary Blood No Growth after 72 hours Assessment and Plan Assessment: Altered mental status, likely multifactorial with component of respiratory failure, hyperglycemia, uncontrolled hypertension, and UTI -Manage each as listed below -UDS negative and Alcohol negative. Uncontrolled hypertension -BP 130/101 -Clevidipine drip discontinued -Patient started on amlodipine, clonidine, lisinopril and hydrochlorothiazide Hypoxic and hypercapnic respiratory failure, likely multifactorial -Patient likely with underlying COPD, reported history of significant tobacco abuse, though states that the patient quit a few years ago -Coronavirus negative -Likely also component of obesity hypoventilation syndrome -Extubated 02/11, maintain O2 saturation greater than 92% -Management as per horse doctor Hyperglycemia, likely type II DM -Insulin drip discontinued for insulin sliding scale -Blood glucose monitoring -A1c 13 Abnormal UA, presumed UTI in setting of altered mental status -Continue Levaquin -Urine culture positive for E. coli pansensitive -Follow up urine and blood cultures Bilateral infiltrates on chest x-ray, presumed community acquired pneumonia -Continue Levaquin DVT prophylaxis -Heparin subq
[2020-02-14] MEDS ORDERED: POTASSIUM CHLORIDE ER 20 MEQ TAB.ER PO SCH (18:00)
[2020-02-14 20:12] LABS: Glucose,Whole Blood 218 mg/dL (75-99)
[2020-02-15 04:46] LABS: Basophils % (A) 0 %; Eosinophils # (A) 0.1 k/uL (0-0.7); Eosinophils % (A) 1 %; HCT 40.5 % (34.0-46.0); HGB 13.1 gm/dL (11.4-16.0); Hypochromasia Slight; Lymphocytes # (A) 1.6 k/uL (1.0-4.8); Lymphocytes % (A) 14 %; MCH 29.2 pg (25.0-35.0); MCHC 32.4 g/dL (31.0-37.0); MCV 90.2 fL (80.0-100.0); Mean Platelet Volume 8.4; Monocytes # (A) 0.6 k/uL (0-1.0); Monocytes % (A) 5 %; Neutrophils # (A) 9.1 k/uL (1.3-7.7); Neutrophils % (A) 78 %; Platelet Count 160 k/uL (150-450); RBC 4.49 m/uL (3.80-5.40); RDW 13.8 % (11.5-15.5); WBC 11.6 k/uL (3.8-10.6)
[2020-02-15 04:57] LABS: African American GFR (CKD) >90 (>60 ml/min/1.73 sqM); Anion Gap 4 mmol/L; Blood Urea Nitrogen 12 mg/dL (7-17); Calcium 8.4 mg/dL (8.4-10.2); Carbon Dioxide 30 mmol/L (22-30); Chloride 103 mmol/L (98-107); Glucose 223 mg/dL (74-99); Non-African American GFR(CKD) 79 (>60 ml/min/1.73 sqM); Potassium 3.9 mmol/L (3.5-5.1); Sodium 137 mmol/L (137-145)
[2020-02-15] MEDS ORDERED: POTASSIUM CHLORIDE ER 20 MEQ TAB.ER PO SCH (05:00)
[2020-02-15] MEDS: LEVOFLOXACIN 750 MG TAB PO SCH (05:27)
[2020-02-15 06:33] LABS: Glucose,Whole Blood 209 mg/dL (75-99)
[2020-02-15] MEDS: INSULIN ASPART (NovoLOG) 100 UNIT/ML VIAL SQ SCH ×4 (06:35→21:41)
[2020-02-15] MEDS: metFORMIN 500 MG TAB PO SCH ×2 (06:39→17:26)
[2020-02-15] MEDS: IPRATROPIUM-ALBUTEROL 3 ML NEB INHALATION SCH ×4 (07:51→20:03)
[2020-02-15] MEDS: cloNIDine HCL 0.2 MG TAB PO SCH ×3 (07:59→21:38)
[2020-02-15] MEDS: LISINOPRIL-HCTZ 20-25 MG 1 EACH TAB PO SCH (07:59)
[2020-02-15] MEDS: HEPARIN SODIUM,PORCINE 5,000 UNIT/ML 1 ML VIAL SQ SCH ×3 (07:59→23:52)
[2020-02-15] MEDS: PANTOPRAZOLE 40 MG TABLET PO SCH (07:59)
[2020-02-15] MEDS: amLODIPine 10 MG TAB PO SCH (07:59)
[2020-02-15] MEDS: FUROSEMIDE 10 MG/ML 4 ML VIAL IV SCH (09:22)
[2020-02-15 10:29] VITALS: BMI 57.4
[2020-02-15 12:02] LABS: Glucose,Whole Blood 213 mg/dL (75-99)
--- NOTE | 2020-02-15 12:45 | P.PN ---
Subjective Progress Note Date: 02/15/20 Principal diagnosis: Acute hypoxic and hypercapnic respiratory failure with acute metabolic encephalopathy secondary to CO2 narcosis. This is a 54-year-old morbidly obese female patient was brought in to the ED yesterday because of diminished level of consciousness and confusion. No history was available MO's of the information was obtained from the medical records and per our discussion with the . Apparently the patient was feeling sick for a few days prior to hospital admission. She was having altered mentation. She complained of some minimal headache. Hours prior to her presentation to the hospital. She was confused and not answering questions appropriately. The family activated EMS who arrived to the scene and the patient was noted to be somewhat altered and combative. The patient also had acute hypertensive reaction where her blood pressure was found to be 255/157 with a pulse of 120. She was placed on nonrebreather facemask with a pulse of 70%. In the ED, blood gases was done that showed a pH of 7.11 with a pCO2 of 106. At that point, the patient was intubated and placed on a mechanical ventilator. Chest x-ray post intubation showed cardiomegaly and pulmonary asked her congestion. There was some left perihilar point infiltrates and some limited infiltration of the right perihilar area. CT angiogram showed cardiomegaly along with some lower lobe at the pulmonary infiltrates in addition to hepatomegaly and fatty infiltration of the liver. The EKG showed a normal sinus rhythm. UA [place] suspicious for an underlying infection. The white cell count of 9.8 with hemoglobin 15.4. Rest of the blood work shows some mild metabolic alkalosis with a serum bicarb of 32. Glucose was 648. D-dimer was 0.6. Troponin was 0.12. This morning, the patient was seen in the intensive care unit. The patient was still intubated on mechanical ventilator. She was assist-control mode of ventilation with a rate of 20 and a tidal volume of 400 and FiO2 of 60% with a PEEP of 5. Morning blood gases showed a pH of 7.24 with a pCO2 61 and pO2 of 109. The patient was ordered to start on Levaquin suspecting an underlying UTI based on abnormal UA. The patient was a Covid negative case. The Covid night seen evaluation came back negative. The patient is currently afebrile. She is receiving IV fluids and normal saline at the rate of 1 30 mL an hour. She is sedated with propofol. She is on insulin drip that was started in the ICU for blood sugar control. She is also on heparin subcu for DVT prophylaxis. On today's evaluation of 02/12/2020, the patient remains intubated on mechanical ventilator. She is very much calm and comfortable while being on sedation and the patient is receiving propofol rate of 50 g per KG per minute. The patient is also on normal saline at the rate of 130 mL and the patient is receiving insulin drip at the rate of 4.5 units an hour. The patient is intubated on a mechanical ventilator. The patient is an assist-control mode of ventilator with a rate of 20, tidal volume of 400, FiO2 of 50% and PEEP of 5. The peak pressures 24, plateau airway pressures 14. The blood gases showed a pH of 7.35 with a pCO2 of 44 and pO2 of 110. Chest x-ray from today shows an ET tube is sitting high in the thoracic inlet. The triple-lumen catheter was adjusted and there is cardiomegaly and atelectatic changes and some limited consolidation of left lung base. Slight improvement in aeration of the right. The patient's white cell count is at 11.1. Hemoglobin was 12.9. The rest of the blood work and electrolytes showed a creatinine of 1.35. BUN is 14. Sodium is at 136. The urine cultures showing gram-negative bacillus and the final cultures and sensitivities are still pending and the patient is currently on Levaquin. Suspect an underlying urine checked infection as the main sugar for the p arslan's respiratory failure. On 02/13/2020 the patient is being seen for a follow-up noted the patient was extubated yesterday and post exhibition the patient became quite restless and agitated. She was very much combative. At that point, I give her Haldol and she received a total of 13 mg of Haldol and she was placed on Precedex drip and the dose was titrated to control her restlessness and agitation. This morning she is on 0.7 g of Precedex. Overnight she also required Geodon where she was given 10 mg IV push and this medication has been ordered to be given every 6 hours as needed. Progressively she improved. She settled down. This morning although sleepy and lethargic, she is more appropriate and she is communicating and answering questions appropriately pH also stated that her mouth is dry and she is requesting oral intake. She is a bit unreasonable as the patient also wants to go home. I told that this is not possible as the patient is still recovering from respiratory failure and underlying urine checked infection. She remains on Levaquin. She has no signs of any significant respiratory distress and the patient is on oxygen at 4 liters by O2. Several packs is being utilized for blood pressure control. He is currently at 1 mg an hour of several packs. The patient also has a normal white count of 11.2. The blood gases from yesterday showed no significant CO2 retention post extubation patient's pH was 7.34 with a pCO2 of 43. Rest of the blood work and electrodes are all within normal limits. The urine culture was positive for E. coli and this was sensi tive to quinolones and the patient remains to be on Levaquin for now. The chest x-ray from today shows some cardiomegaly and some bibasilar airspace disease. On 02/14/2020, the patient is on room air oxygen. She has developed significant improvement in mental status and she seems to be very calm and comfortable and cooperative and appropriate. Nevertheless, overnight, the patient became quite restless and she received again a total of 3 mg of Haldol and the dose of Geodon 10 mg IM. She is afebrile. She is hemodynamically stable. In fact she is hypertensive and the blood pressure medication is to be adjusted. She remains on insulin drip for blood sugar control and this is running at 2 units an hour. She has no previous history of diabetes mellitus. In regards to her hypertension, the patient was on Cleviprex drip which was discontinued. There are clevidipine drip was also discontinued. No leukocytosis. Urine cultures positive for E. coli and the patient is currently on Levaquin which will be switched to oral. The E. coli susceptible to Levaquin based on sensitivities available. Reevaluated today on 02/15/20. Patient remains in the ICU, she seems to be doing quite well, asymptomatic, alert oriented 3, not agitated at present, and she is on IV fluid at [facility], she did receive 1 Lasix 40 mg IV push times one. Patient denies any headache, no blurred vision, no dizziness, she seems to be very calm, and very appropriate. Labs today showed relatively normal metabolic profile. Normal CBC. Last chest x-ray showed cardiomegaly and bibasilar atelectasis and this was 2 days ago. Urine culture came back showing E. coli. Sensitive to all antibiotics tested Objective - Vital Signs Vital signs: Vital Signs Temp 98.5 F 02/15/20 11:50 Pulse 102 H 02/15/20 11:50 Resp 15 02/15/20 11:50 BP 159/109 02/15/20 11:50 Pulse Ox 90 L 02/15/20 11:50 Intake & Output 02/14/20 02/15/20 02/15/20 18:59 06:59 18:59 Intake Total 272.619 960 40 Output Total 2120 765 1245 Balance -1847.381 195 -1205 Weight 176.6 kg 176.6 kg Intake: IV 264 240 40 .9 pressure bag 24 Sodium Chloride 0.9% 1, 240 240 40 000 ml @ 20 mls/hr IV . Q24H [facility] Rx#:[id number] Intake, IV Titration 8.619 Amount Insulin Regular 100 unit 8.619 In Sodium Chloride 0.9% 100 ml @ Per Protocol IV .Q0M [facility] Rx#:[id number] Oral 720 Output: Urine 2120 765 1245 Other: Voiding Method Indwelling Catheter Indwelling Catheter Indwelling Catheter # Bowel Movements 1 ABP, PAP, CO, CI - Last Documented Arterial Blood Pressure 184/103 - Exam Physical Exam: Revealed a 54-year-old female obese in no distress. Head: Atraumatic, normocephalic. HEENT: PERRLA, EOMI, no icterus. Moist mucous membranes. Throat is clear. Chest: [Clear throughout, no crackles, no rhonchi, no wheezes.] Cardiac Exam: [Normal S1 and S2, no S3 gallop, no murmur.] Abdomen: [Soft, nontender, no megaly, no rebound, no guarding, normal bowel sounds.] Extremities: [No clubbing, no edema, no cyanosis.] Neurological Exam: [No focal neurologic deficit.] Alert oriented 3. Skin: No rashes. Psychiatric: Normal mood affect and normal mental status examination. Lymphatics: No lymphadenopathy. Musculoskeletal: No deformities, normal range of motion bilaterally. - Labs CBC & Chem 7: 02/15/20 04:26 02/15/20 04:26 Labs: Abnormal Lab Results - Last 24 Hours (Table) 02/14/20 02/14/20 02/15/20 Range/Units 16:54 20:11 04:26 WBC 11.6 H (3.8-10.6) k/uL Neutrophils # 9.1 H (1.3-7.7) k/uL Glucose (74-99) mg/dL POC Glucose (mg/dL) 176 H 218 H (75-99) mg/dL 02/15/20 02/15/20 02/15/20 Range/Units 04:26 06:31 11:50 WBC (3.8-10.6) k/uL Neutrophils # (1.3-7.7) k/uL Glucose 223 H (74-99) mg/dL POC Glucose (mg/dL) 209 H 213 H (75-99) mg/dL Microbiology - Last 24 Hours (Table) 02/11/20 09:22 Blood Culture - Preliminary Blood No Growth after 96 hours Assessment and Plan Assessment: Impression: Acute hypoxic and hypercapnic respiratory failure requiring intubation and mechanical ventilation. Patient is presently on room air, asymptomatic. Acute altered mental status changes secondary to CO2 narcosis/acute metabolic encephalopathy Morbid obesity BMI of 51.7 and suspect underlying obstructive sleep apnea syndrome Type 2 diabetes. Required initially insulin drip. Presently under control. Benign essential hypertension. E. coli urinary tract infection. Recommendation: Continue antibiotics for UTI. Off insulin drip. Continue oral Levaquin. Transfer patient out of the ICU to a regular medical floor. Continue to monitor blood pressure and treat accordingly presently on clonidine and on amlodipine as well as lisinopril with hydrochlorothiazide. Continue bronchodilators. Resume home meds. Continue metformin. Consider discharge planning in the next 24-48 hours. We will follow. Time with Patient: Less than 30
[2020-02-15 16:37] LABS: Glucose,Whole Blood 227 mg/dL (75-99)
[2020-02-15] MEDS: SODIUM CHLORIDE 0.9% 1,000 ML IV SCH (16:40)
--- NOTE | 2020-02-15 18:40 | P.PN ---
Subjective Progress Note Date: 02/15/20 Principal diagnosis: Acute hypoxic respiratory failure The patient is a 54-year-old female with a PMH of hypertension (poor f/u with PMD) and morbid obesity presented to the ED, brought in by family for confusion. Apparently, patient's (Brandon via phone [phone]) who reported that the patient had been feeling somewhat ill for the past few weeks. She was however able to function for the most part and attend to her job. She however complained of a headache an hour prior to presentation and proceeded to lay down. She complained to her family that she doesn't feel well, and then became confused, not answering questions appropriately. The family activated EMS and sh e was brought in to the ED where she was noted to be altered and combative. The patient was noted to be extremely hypertensive upon arrival, with BP 255/157, pulse 120, and saturating 90% on nonrebreather mask. The patient's ABG revealed a pH of 7.11 and pCO2 106. The patient was subsequently intubated. She was extubated on 02/12/2020. Mentation is greatly improved. She has no complaints at this time. She denies any chest pain, shortness of breath or palpitations. No nausea or vomiting. No fever or chills. She is currently on room air. Clevidipine drip discontinued and patient stated on oral antihypertensives. Subcutaneous insulin started. She is on levofloxacin by mouth for UTI. Objective - Vital Signs Vital signs: Vital Signs Temp 98.5 F 02/15/20 14:17 Pulse 101 H 02/15/20 15:48 Resp 17 02/15/20 14:17 BP 150/86 02/15/20 14:17 Pulse Ox 93 L 02/15/20 15:31 Intake & Output 02/14/20 02/15/20 02/15/20 18:59 06:59 18:59 Intake Total 272.619 960 320 Output Total 2120 765 1645 Balance -1847.381 195 -1325 Weight 176.6 kg 176.6 kg Intake: IV 264 240 40 .9 pressure bag 24 Sodium Chloride 0.9% 1, 240 240 40 000 ml @ 20 mls/hr IV . Q24H [facility] Rx#:[id number] Intake, IV Titration 8.619 Amount Insulin Regular 100 unit 8.619 In Sodium Chloride 0.9% 100 ml @ Per Protocol IV .Q0M [facility] Rx#:[id number] Oral 720 280 Output: Urine 2120 765 1645 Uretheral (Mcgill) 400 Other: Voiding Method Indwelling Catheter Indwelling Catheter Indwelling Catheter # Bowel Movements 1 ABP, PAP, CO, CI - Last Documented Arterial Blood Pressure 184/103 - Exam General: [non toxic], [sitting comfortably speaking in full sentences on the phone on room air], [appears at stated age], [morbidly obese] Derm: [warm], [dry] Head: [atraumatic], [normocephalic], [symmetric] Eyes: [EOMI], [no lid lag], [anicteric sclera] Mouth: [no lip lesion], [mucus membranes moist] Cardiovascular: [S1S2 reg], [no murmur], [positive DP pulse bilateral], Lungs: [Decreased breath sounds bilateral], [no rhonchi, no rales] , [no accessory muscle use] Abdominal: [soft], [ nontender to palpation], [no guarding], [no appreciable organomegaly] Ext: [no gross muscle atrophy], [no edema], [no contractures], [chronic lower extremity venous stasis changes] Neuro: [no focal neuro deficits] Psych: [Alert and oriented] - Labs CBC & Chem 7: 02/15/20 04:26 02/15/20 04:26 Labs: Abnormal Lab Results - Last 24 Hours (Table) 02/14/20 02/15/20 02/15/20 Range/Units 20:11 04:26 04:26 WBC 11.6 H (3.8-10.6) k/uL Neutrophils # 9.1 H (1.3-7.7) k/uL Glucose 223 H (74-99) mg/dL POC Glucose (mg/dL) 218 H (75-99) mg/dL 02/15/20 02/15/20 02/15/20 Range/Units 06:31 11:50 16:36 WBC (3.8-10.6) k/uL Neutrophils # (1.3-7.7) k/uL Glucose (74-99) mg/dL POC Glucose (mg/dL) 209 H 213 H 227 H (75-99) mg/dL Microbiology - Last 24 Hours (Table) 02/11/20 09:22 Blood Culture - Preliminary Blood No Growth after 96 hours Assessment and Plan Assessment: Altered mental status, likely multifactorial with component of respiratory failure, hyperglycemia, uncontrolled hypertension, and UTI -Manage each as listed below -UDS negative and Alcohol negative. -Resolved Uncontrolled hypertension -BP 150/86 -Clevidipine drip discontinued -Patient started on amlodipine, clonidine, lisinopril and hydrochlorothiazide Hypoxic and hypercapnic respiratory failure, likely multifactorial -Patient likely with underlying COPD, reported history of significant tobacco abuse, though states that the patient quit a few years ago -Coronavirus negative -Likely also component of obesity hypoventilation syndrome -Extubated 02/11, maintain O2 saturation greater than 92% Hyperglycemia, likely type II DM -Insulin drip discontinued for insulin sliding scale -Blood glucose monitoring -A1c 13 Abnormal UA, presumed UTI in setting of altered mental status -Continue Levaquin -Urine culture positive for E. coli pansensitive Bilateral infiltrates on chest x-ray, presumed community acquired pneumonia -Continue Levaquin DVT prophylaxis -Heparin subq [Patient has improved greatly since admission. Her mentation is back to normal. Her respiratory status is normal. She will need diabetic education for new onset diabetes, glucometer, test strips and insulin on discharge.]
[2020-02-15 20:56] LABS: Glucose,Whole Blood 213 mg/dL (75-99)
[2020-02-16 00:19] VITALS: PULSE 87
[2020-02-16] MEDS: LEVOFLOXACIN 750 MG TAB PO SCH (05:36)
[2020-02-16 07:18] LABS: Glucose,Whole Blood 207 mg/dL (75-99)
[2020-02-16] MEDS: metFORMIN 500 MG TAB PO SCH (07:25)
[2020-02-16] MEDS: INSULIN ASPART (NovoLOG) 100 UNIT/ML VIAL SQ SCH ×2 (07:25→12:13)
[2020-02-16] MEDS: HEPARIN SODIUM,PORCINE 5,000 UNIT/ML 1 ML VIAL SQ SCH (07:26)
[2020-02-16] MEDS: ALBUTEROL HFA INHALER INHALATION SCH ×2 (08:36→12:03)
[2020-02-16] MEDS: PANTOPRAZOLE 40 MG TABLET PO SCH (09:00)
[2020-02-16] MEDS: cloNIDine HCL 0.2 MG TAB PO SCH (09:00)
[2020-02-16] MEDS: FUROSEMIDE 10 MG/ML 4 ML VIAL IV SCH (09:00)
[2020-02-16] MEDS: amLODIPine 10 MG TAB PO SCH (09:00)
[2020-02-16] MEDS: LISINOPRIL-HCTZ 20-25 MG 1 EACH TAB PO SCH (09:00)
[2020-02-16 09:13] VITALS: BP 157/91; RESP 17; TEMP 98.8
--- NOTE | 2020-02-16 10:48 | P.PN ---
Subjective Progress Note Date: 02/16/20 Principal diagnosis: Acute hypoxic and hypercapnic respiratory failure with acute metabolic encephalopathy secondary to CO2 narcosis Acute hypoxic and hypercapnic respiratory failure with acute metabolic encephalopathy secondary to CO2 narcosis. This is a 54-year-old morbidly obese female patient was brought in to the ED yesterday because of diminished level of consciousness and confusion. No history was available MO's of the information was obtained from the medical records and per our discussion with the . Apparently the patient was feeling sick for a few days prior to hospital admission. She was having altered mentation. She complained of some minimal headache. Hours prior to her presentation to the hospital. She was confused and not answering questions appropriately. The family activated EMS who arrived to the scene and the patient was noted to be somewhat altered and combative. The patient also had acute hypertensive reaction where her blood pressure was found to be 255/157 with a pulse of 120. She was placed on nonrebreather facemask with a pulse of 70%. In the ED, blood gases was done that showed a pH of 7.11 with a pCO2 of 106. At that point, the patient was intubated and placed on a mechanical ventilator. Chest x-ray post intubation showed cardiomegaly and pulmonary asked her congestion. There was some left perihilar point infiltrates and some limited infiltration of the right perihilar area. CT angiogram showed cardiomegaly along with some lower lobe at the pulmonary infiltrates in addition to hepatomegaly and fatty infiltration of the liver. The EKG showed a normal sinus rhythm. UA [place] suspicious for an underlying infection. The white cell count of 9.8 with hemoglobin 15.4. Rest of the blood work shows some mild metabolic alkalosis with a serum bicarb of 32. Glucose was 648. D-dimer was 0.6. Troponin was 0.12. This morning, the patient was seen in the intensive care unit. The patient was still intubated on mechanical ventilator. She was assist-control mode of ventilation with a rate of 20 and a tidal volume of 400 and FiO2 of 60% with a PEEP of 5. Morning blood gases showed a pH of 7.24 with a pCO2 61 and pO2 of 109. The patient was ordered to start on Levaquin suspecting an underlying UTI based on abnormal UA. The patient was a Covid negative case. The Covid night seen evaluation came back negative. The patient is currently afebrile. She is receiving IV fluids and normal saline at the rate of 1 30 mL an hour. She is sedated with propofol. She is on insulin drip that was started in the ICU for blood sugar control. She is also on heparin subcu for DVT prophylaxis. On today's evaluation of 02/12/2020, the patient remains intubated on mechanical ventilator. She is very much calm and comfortable while being on sedation and the patient is receiving propofol rate of 50 g per KG per minute. The patient is also on normal saline at the rate of 130 mL and the patient is receiving insulin drip at the rate of 4.5 units an hour. The patient is intubated on a mechanical ventilator. The patient is an assist-control mode of ventilator with a rate of 20, tidal volume of 400, FiO2 of 50% and PEEP of 5. The peak pressures 24, plateau airway pressures 14. The blood gases showed a pH of 7.35 with a pCO2 of 44 and pO2 of 110. Chest x-ray from today shows an ET tube is sitting high in the thoracic inlet. The triple-lumen catheter was adjusted and there is cardiomegaly and atelectatic changes and some limited consolidation of left lung base. Slight improvement in aeration of the right. The patient's white cell count is at 11.1. Hemoglobin was 12.9. The rest of the blood work and electrolytes showed a creatinine of 1.35. BUN is 14. Sodium is at 136. The urine cultures showing gram-negative bacillus and the final cultures and sensitivities are still pending and the patient is currently on Levaquin. Suspect an underlying urine checked infection as the main sugar for the patient's respiratory failure. On 02/13/2020 the patient is being seen for a follow-up noted the patient was extubated yesterday and post exhibition the patient became quite restless and agitated. She was very much combative. At that point, I give her Haldol and she received a total of 13 mg of Haldol and she was placed on Precedex drip and the dose was titrated to control her restlessness and agitation. This morning she is on 0.7 g of Precedex. Overnight she also required Geodon where she was given 10 mg IV push and this medication has been ordered to be given every 6 hours as needed. Progressively she improved. She settled down. This morning although sleepy and lethargic, she is more appropriate and she is communicating and answering questions appropriately pH also stated that her mouth is dry and she is requesting oral intake. She is a bit unreasonable as the patient also wants to go home. I told that this is not possible as the patient is still recovering from respiratory failure and underlying urine checked infection. She remains on Levaquin. She has no signs of any significant respiratory distress and the patient is on oxygen at 4 liters by O2. Several packs is being utilized for blood pressure control. He is currently at 1 mg an hour of several packs. The patient also has a normal white count of 11.2. The blood gases from yesterday showed no significant CO2 retention post extubation patient's pH was 7.34 with a pCO2 of 43. Rest of the blood work and electrodes are all within normal limits. The urine culture was positive for E. coli and this was sensitive to quinolones and the patient remains to be on Levaquin for now. The chest x-ray from today shows some cardiomegaly and some bibasilar airspace disease. On 02/14/2020, the patient is on room air oxygen. She has developed significant improvement in mental status and she seems to be very calm and comfortable and cooperative and appropriate. Nevertheless, overnight, the patient became quite restless and she received again a total of 3 mg of Haldol and the dose of Geodon 10 mg IM. She is afebrile. She is hemodynamically stable. In fact she is hypertensive and the blood pressure medication is to be adjusted. She remains on insulin drip for blood sugar control and this is running at 2 units an hour. She has no previous history of diabetes mellitus. In regards to her h ypertension, the patient was on Cleviprex drip which was discontinued. There are clevidipine drip was also discontinued. No leukocytosis. Urine cultures positive for E. coli and the patient is currently on Levaquin which will be switched to oral. The E. coli susceptible to Levaquin based on sensitivities available. Reevaluated today on 02/15/20. Patient remains in the ICU, she seems to be doing quite well, asymptomatic, alert oriented 3, not agitated at present, and she is on IV fluid at [facility], she did receive 1 Lasix 40 mg IV push times one. Patient denies any headache, no blurred vision, no dizziness, she seems to be very calm, and very appropriate. Labs today showed relatively normal metabolic profile. Normal CBC. Last chest x-ray showed cardiomegaly and bibasilar atelectasis and this was 2 days ago. Urine culture came back showing E. coli. Sensitive to all antibiotics tested On 02/16/2020 patient seen in follow-up on the general medical floor, she is awake and alert, in no acute distress, she is on room air, her pulse ox is 92%, no couplets of shortness of breath, her mentation is back to baseline, within normal limits, she is answering questions appropriately, she is oriented 3, vital signs are stable, she remains on Levaquin for E. coli urinary tract infection, hemodynamic was stable, no acute events overnight, afebrile. No new chest x-ray today. No new labs, clinically stable. Blood culture has shown no growth Objective - Vital Signs Vital signs: Vital Signs Temp 98.8 F 02/16/20 07:00 Pulse 87 02/16/20 00:17 Resp 17 02/16/20 07:00 BP 157/91 02/16/20 07:00 Pulse Ox 93 L 02/16/20 07:00 Intake & Output 02/15/20 02/16/20 02/16/20 18:59 06:59 18:59 Intake Total 320 200 Output Total 1645 700 Balance -1325 -700 200 Weight 176.6 kg Intake: IV 40 Sodium Chloride 0.9% 1, 40 000 ml @ 20 mls/hr IV . Q24H [facility] Rx#:[id number] Oral 280 200 Output: Urine 1645 700 Uretheral (Mcgill) 400 Other: Voiding Method Indwelling Catheter Toilet Indwelling Catheter # Voids 1 ABP, PAP, CO, CI - Last Documented Arterial Blood Pressure 184/103 - Exam GENERAL EXAM: Alert, very pleasant, 54-year-old white female, on room air, with a pulse ox of 92%, sitting up in the recliner, in no acute distress, she is oriented 3, comfortable in no apparent distress. HEAD: Normocephalic/atraumatic. EYES: Normal reaction of pupils, equal size. Conjunctiva pink, sclera white. NOSE: Clear with pink turbinates. THROAT: No erythema or exudates. NECK: No masses, no JVD, no thyroid enlargement, no adenopathy. CHEST: No chest wall deformity. Symmetrical expansion. LUNGS: Equal air entry with no crackles, wheeze, rhonchi or dullness. CVS: Regular rate and rhythm, normal S1 and S2, no gallops, no murmurs, no rubs ABDOMEN: Soft, nontender. No hepatosplenomegaly, normal bowel sounds, no guarding or rigidity. EXTREMITIES: No clubbing, no edema, no cyanosis, 2+ pulses and upper and lower extremities. MUSCULOSKELETAL: Muscle strength and tone normal. SPINE: No scoliosis or deformity SKIN: No rashes CENTRAL NERVOUS SYSTEM: Alert and oriented -3. No focal deficits, tone is normal in all 4 extremities. PSYCHIATRIC: Alert and oriented -3. Appropriate affect. Intact judgment and insight. - Labs CBC & Chem 7: 02/15/20 04:26 02/15/20 04:26 Labs: Abnormal Lab Results - Last 24 Hours (Table) 02/15/20 02/15/20 02/15/20 Range/Units 11:50 16:36 20:55 POC Glucose (mg/dL) 213 H 227 H 213 H (75-99) mg/dL 02/16/20 Range/Units 07:17 POC Glucose (mg/dL) 207 H (75-99) mg/dL Microbiology - Last 24 Hours (Table) 02/11/20 09:22 Blood Culture - Preliminary Blood No Growth after 96 hours Assessment and Plan Plan: Assessment: #1. Acute hypoxic and hypercapnic respiratory failure requiring intubation and mechanical ventilation. Patient is presently on room air, asymptomatic. #2. Acute altered mental status changes secondary to CO2 narcosis/acute metabolic encephalopathy #3. Morbid obesity BMI of 51.7 and suspect underlying obstructive sleep apnea syndrome #4. Type 2 diabetes. Required initially insulin drip. Presently under control. #5. Benign essential hypertension. #6. E. coli urinary tract infection. Plan: Continue current antibiotic coverage with Levaquin for 5 more days, clinically patient is stable, no acute events overnight, mentation is back to baseline, she is alert and oriented 3, no specific complaints. Vital signs stable, no fever or chills, from pulmonary/critical care perspective patient is stable for discharge home today. I performed a history & physical examination of the patient and discussed their management with my nurse practitioner, Alma Christianson. I reviewed the nurse practitioner's note and agree with the documented findings and plan of care. Lung sounds are positive for clear breath sounds. The findings and the impression was discussed with the patient. I attest to the documentation by the nurse practitioner. Time with Patient: Less than 30
--- NOTE | 2020-02-16 11:21 | P.DS ---
Providers Date of admission: 02/11/20 00:36 Expected date of discharge: 02/16/20 Attending physician: Mar Louis MD Consults: 02/11/20 00:33 Consult Physician Stat Consulting Provider: Arely Plata Consult Reason/Comments: Acute respiratory failure with intubation. Do you want consulting provider notified?: Already Contacted Primary care physician: Stated None Hospital Course: Discharge diagnoses New-onset diabetes type 2 Accelerated hypertension Community-acquired pneumonia Morbid obesity with hypoventilation syndrome BMI 51.7 Toxic metabolic encephalopathy due to CO2 narcosis UTI with E. coli growing in the urine 54-year-old female with a PMH of hypertension (poor f/u with MD) and morbid obesity presented to the ED, brought in by family for confusion. Her stated that the patient had been feeling somewhat ill for the past few weeks. She was however able to function for the most part and attend to her job. She also had a headache prior to presentation. Patient was not answering questions appropriately. When patient arrived to the emergency department she was found to be altered and combative. She was also found to be extremely hypertensive upon arrival, with BP 255/157, pulse 120, and saturating 90% on nonrebreather mask. The patient's ABG revealed a pH of 7.11 and pCO2 106. The patient was subsequently intubated. Evaluation in the emergency room with a brain CT that was unremarkable, chest x- ray showed a left perihilar infiltrate with atelectasis, EKG showed sinus tachycardia with HR 123 bpm, and a chest CTA which revealed cardiomegaly, bilateral lower pulmonary infiltrates, with hepatomegaly and fatty infiltration of the liver. Laboratory evaluation revealed a WBC count of 9.8, hemoglobin 15.4, platelets 181, sodium 133, potassium 3.5, chloride 90, CO2 32, BUN 10, creatinine 0.91, glucose 648, alkaline phosphatase 196, and d-dimer 0.65, with troponin less than 0.012. The patient was admitted to the medical ICU. She was evaluated and followed by pulmonary service, during the ICU course she was combative and agitated at times and that was treated with Haldol and Geodon as needed. Initially she wasn on insulin drip due to severely elevated blood sugars then later she was switched to oral hypoglycemic agents with metformin, she remained on insulin sliding scale however. Urinalysis showed pyuria and urine cultures grew E. coli. She was treated with Levaquin. Patient was eventually extubated which was tolerated well. Today she is doing very well, she was evaluated by physical therapy and cleared for discharge without recommendation for further therapy. I advised her to lose weight and exercise upon discharge. I also told her to eat only fruits and vegetables and to cook her own food. Time for discharge 35 minutes. Patient Condition at Discharge: Critical Plan - Discharge Summary Discharge Rx Participant: No New Discharge Prescriptions: New cloNIDine HCL [Catapres] 0.2 mg PO TID 30 Days #90 tab metFORMIN HCL [Glucophage] 1,000 mg PO BID-W/MEALS 30 Days #60 tab Canagliflozin [Invokana] 100 mg PO DAILY 30 Days #30 tab Levofloxacin [Levaquin] 750 mg PO DAILY@0600 5 Days #5 tab amLODIPine [Norvasc] 10 mg PO DAILY 3 Days #30 tab Acetaminophen Tab [Tylenol] 650 mg PO Q4HR PRN tab PRN Reason: Fever And/Or Mild Pain Albuterol Inhaler [Ventolin Hfa Inhaler] 2 puff INHALATION RT-QID 30 Days #1 inhaler Lisinopril-Hctz 20-25 mg [Zestoretic 20-25] 1 each PO DAILY 30 Days #30 tab Discharge Medication List Acetaminophen Tab [Tylenol] 650 mg PO Q4HR PRN tab 02/16/20 [Rx] Albuterol Inhaler [Ventolin Hfa Inhaler] 2 puff INHALATION RT-QID 30 Days #1 inhaler 02/16/20 [Rx] Canagliflozin [Invokana] 100 mg PO DAILY 30 Days #30 tab 02/16/20 [Rx] Levofloxacin [Levaquin] 750 mg PO DAILY@0600 5 Days #5 tab 02/16/20 [Rx] Lisinopril-Hctz 20-25 mg [Zestoretic 20-25] 1 each PO DAILY 30 Days #30 tab 02/16/20 [Rx] amLODIPine [Norvasc] 10 mg PO DAILY 3 Days #30 tab 02/16/20 [Rx] cloNIDine HCL [Catapres] 0.2 mg PO TID 30 Days #90 tab 02/16/20 [Rx] metFORMIN HCL [Glucophage] 1,000 mg PO BID-W/MEALS 30 Days #60 tab 02/16/20 [Rx] Follow up Appointment(s)/Referral(s): None,Stated [Primary Care Provider] - 1-2 days
[2020-02-16 11:27] LABS: Glucose,Whole Blood 176 mg/dL (75-99)
[2020-02-16] MEDS: IPRATROPIUM-ALBUTEROL 3 ML NEB INHALATION SCH (11:35)
== END 2020-02-16 14:00 | disposition home or self-care (01) | DRG 208 ==
LOC: EC 21:56 → 2SICU 02-11 00:36 → 4SSUR 02-15 11:46
PROVIDERS: ADMIT Internal Medicine; ATTEND Internal Medicine
PROC: 0BH17EZ Insertion of Endotracheal Airway into Trachea, Via Natural or Artificial Opening (ICD-10-PCS; principal; 2020-02-11)
PROC: 5A1945Z Respiratory Ventilation, 24-96 Consecutive Hours (ICD-10-PCS; principal; 2020-02-11)
PROC: 03HY32Z Insertion of Monitoring Device into Upper Artery, Percutaneous Approach (ICD-10-PCS; 2020-02-11)
PROC: 4A133BC Monitoring of Arterial Pressure, Coronary, Percutaneous Approach (ICD-10-PCS; 2020-02-11)
PROC: 05HN33Z Insertion of Infusion Device into Left Internal Jugular Vein, Percutaneous Approach (ICD-10-PCS; 2020-02-11)
DX: J96.21 Acute and chronic respiratory failure with hypoxia (principal); G92 Toxic encephalopathy; J18.9 Pneumonia, unspecified organism; E66.2 Morbid (severe) obesity with alveolar hypoventilation; E87.1 Hypo-osmolality and hyponatremia; E87.3 Alkalosis; I16.1 Hypertensive emergency; J44.0 Chronic obstructive pulmonary disease with (acute) lower respiratory infection; J98.11 Atelectasis; N39.0 Urinary tract infection, site not specified; Z68.43 Body mass index [BMI] 50.0-59.9, adult; J96.22 Acute and chronic respiratory failure with hypercapnia; R16.0 Hepatomegaly, not elsewhere classified; I11.9 Hypertensive heart disease without heart failure; K76.0 Fatty (change of) liver, not elsewhere classified; Z20.828 Contact with and (suspected) exposure to other viral communicable diseases; B96.20 Unspecified Escherichia coli [E. coli] as the cause of diseases classified elsewhere; E11.65 Type 2 diabetes mellitus with hyperglycemia; I87.8 Other specified disorders of veins; Z79.899 Other long term (current) drug therapy; Z87.891 Personal history of nicotine dependence; Z91.19 Patient's noncompliance with other medical treatment and regimen; Z88.0 Allergy status to penicillin
CPT/HCPCS: 31500; 36415; 36600; 70450; 71045; 71275; 80048; 80053; 80306; 80320; 81001; 82009; 82140; 82805; 83036; 83605; 83735; 84100; 84132; 84145; 84484; 85025; 85379; 85610; 85730; 87040; 87077; 87086; 87186; 87635; 93005; 94002; 94003; 94640; 94760; 96360; 96361; 96374; 96375; 99291

== ENCOUNTER → 2020-03-18 | Outpatient (CLI) | payer BC ==
[2020-03-18 10:20] LABS: Basophils % (A) 0 %; Eosinophils # (A) 0.1 k/uL (0-0.7); Eosinophils % (A) 2 %; HCT 41.9 % (34.0-46.0); HGB 13.9 gm/dL (11.4-16.0); Lymphocytes % (A) 27 %; MCH 29.4 pg (25.0-35.0); MCHC 33.2 g/dL (31.0-37.0); MCV 88.6 fL (80.0-100.0); Mean Platelet Volume 8.8; Monocytes # (A) 0.4 k/uL (0-1.0); Monocytes % (A) 5 %; Neutrophils # (A) 4.7 k/uL (1.3-7.7); Neutrophils % (A) 64 %; Platelet Count 187 k/uL (150-450); RBC 4.73 m/uL (3.80-5.40); WBC 7.4 k/uL (3.8-10.6)
[2020-03-18 16:04] LABS: Albumin 4.4 g/dL (3.80-4.90); Albumin/Globulin Ratio 1.33 (1.60-3.17); Anion Gap 5.6 mmol/L (4.00-12.00); BUN/Creat Ratio 15.83 Ratio (12.00-20.00); Calcium 9.6 mg/dL (8.7-10.3); Carbon Dioxide 29.4 mmol/L (21.6-31.8); Globulin 3.3 g/dL (1.6-3.3); Non-African American GFR(CKD) 22.5 (60.0-200.0); Potassium 4.8 mmol/L (3.5-5.5); Total Bilirubin 0.5 mg/dL (0.3-1.2); Total Protein 7.7 g/dL (6.2-8.2)
== END | disposition home or self-care (01) ==
LOC: LABWHC1 09:16
PROVIDERS: ATTEND Physician Assistant Medical
DX: I10 Essential (primary) hypertension (principal); E11.9 Type 2 diabetes mellitus without complications; E87.8 Other disorders of electrolyte and fluid balance, not elsewhere classified
CPT/HCPCS: 36415; 80053; 85025

== ENCOUNTER → 2020-03-25 | Outpatient (CLI) | payer BC ==
[2020-03-25 10:43] LABS: Appearance,Urine Cloudy (Clear); Bacteria,Urine Rare /hpf; Bilirubin,Urine Negative (Negative); Blood,Urine Moderate (Negative); Color,Urine Yellow; Glucose,Urine (UA) 3+ (Negative); Ketones,Urine Negative (Negative); Leukocyte Esterase,Urine Small (Negative); Mucus,Urine Rare /hpf; Nitrite,Urine Negative (Negative); PH, Urine 5.5 (5.0-8.0); Protein,Urine 1+ (Negative); RBC,Urine 3 /hpf (0-5); Specific Gravity,Urine 1.013 (1.001-1.035); Squamous Epithelial Cell,Urine 8 /hpf (0-4); Urobilinogen,Urine <2.0 mg/dL (<2.0); WBC,Urine 5 /hpf (0-5)
[2020-03-25 16:08] LABS: African American GFR (CKD) 15.9 (60.0-200.0); Albumin 4.5 g/dL (3.80-4.90); Anion Gap 10.4 mmol/L (4.00-12.00); BUN/Creat Ratio 11.11 Ratio (12.00-20.00); Calcium 9.5 mg/dL (8.7-10.3); Carbon Dioxide 24.6 mmol/L (21.6-31.8); Magnesium 1.7 mg/dL (1.5-2.4); Non-African American GFR(CKD) 13.8 (60.0-200.0); Phosphorus 3.3 mg/dL (2.4-5.1); Potassium 4.1 mmol/L (3.5-5.5)
[2020-03-25 17:21] LABS: Urine Creatinine 245.6 mg/dL
== END | disposition home or self-care (01) ==
LOC: LABWHC1 08:50
PROVIDERS: ATTEND Physician Assistant Medical
DX: I10 Essential (primary) hypertension (principal); E11.9 Type 2 diabetes mellitus without complications; N17.9 Acute kidney failure, unspecified
CPT/HCPCS: 36415; 80069; 81001; 82043; 82570; 83735

== ENCOUNTER → 2020-04-22 | Outpatient (CLI) | payer BC ==
[2020-04-22 12:23] LABS: Basophils % (A) 0 %; Eosinophils # (A) 0.1 k/uL (0-0.7); Eosinophils % (A) 1 %; HCT 38.8 % (34.0-46.0); HGB 12.3 gm/dL (11.4-16.0); Lymphocytes # (A) 1.8 k/uL (1.0-4.8); Lymphocytes % (A) 23 %; MCH 28.5 pg (25.0-35.0); MCHC 31.6 g/dL (31.0-37.0); MCV 90.2 fL (80.0-100.0); Mean Platelet Volume 8.2; Monocytes # (A) 0.4 k/uL (0-1.0); Monocytes % (A) 5 %; Neutrophils # (A) 5.5 k/uL (1.3-7.7); Neutrophils % (A) 70 %; Platelet Count 230 k/uL (150-450); RBC 4.31 m/uL (3.80-5.40); RDW 14.8 % (11.5-15.5); WBC 7.8 k/uL (3.8-10.6)
[2020-04-22 12:36] LABS: Appearance,Urine Cloudy (Clear); Bacteria,Urine Many /hpf; Bilirubin,Urine Negative (Negative); Blood,Urine Moderate (Negative); Color,Urine Yellow; Glucose,Urine (UA) Negative (Negative); Ketones,Urine 1+ (Negative); Leukocyte Esterase,Urine Large (Negative); Mucus,Urine Rare /hpf; Nitrite,Urine Positive (Negative); PH, Urine 5.5 (5.0-8.0); Protein,Urine 1+ (Negative); RBC,Urine 31 /hpf (0-5); Specific Gravity,Urine 1.016 (1.001-1.035); Squamous Epithelial Cell,Urine 15 /hpf (0-4); Urobilinogen,Urine <2.0 mg/dL (<2.0); WBC,Urine 162 /hpf (0-5)
[2020-04-22 12:39] LABS: Creatinine,Urine Random 223.7 mg/dL; Protein/Creatinine Ratio,Urine 0.268
[2020-04-22 17:47] LABS: % Iron Saturation 24.28 (12.00-45.00); African American GFR (CKD) 39.5 (60.0-200.0); Albumin 4.2 g/dL (3.80-4.90); Anion Gap 7.8 mmol/L (4.00-12.00); BUN/Creat Ratio 14.71 Ratio (12.00-20.00); Calcium 9.6 mg/dL (8.7-10.3); Carbon Dioxide 27.2 mmol/L (21.6-31.8); Magnesium 1.7 mg/dL (1.5-2.4); Non-African American GFR(CKD) 34.1 (60.0-200.0); Phosphorus 2.3 mg/dL (2.4-5.1); Potassium 4.6 mmol/L (3.5-5.5); Uric Acid 10.1 mg/dL (2.9-7.7)
[2020-04-22 17:53] LABS: Ferritin 297.9 ng/mL (10.0-291.0)
== END | disposition home or self-care (01) ==
LOC: LABWHC1 10:22
PROVIDERS: ATTEND Internal Medicine Nephrology
DX: N17.9 Acute kidney failure, unspecified (principal)
CPT/HCPCS: 36415; 80048; 81001; 82040; 82306; 82570; 82728; 83540; 83550; 83735; 83970; 84100; 84156; 84550; 85025

== ENCOUNTER → 2020-05-23 | Outpatient (CLI) | payer BC ==
--- NOTE | 2020-05-23 12:59 | US ---
EXAMINATION TYPE: US kidneys/renal and bladder DATE OF EXAM: 05/23/2020 COMPARISON: CT 2014 CLINICAL HISTORY: N17.9 acute kidney injury. EXAM MEASUREMENTS: Right Kidney: 11.4 x 4.8 x 6.5 cm Left Kidney: 12.3 x 5.1 x 5.3 cm Right Kidney: central soft tissue density, possible mass versus normal tissue measures 3.8 x 2.1 x 4. 7 cm. Left Kidney: somewhat lobular contour Bladder: not well distended Bilateral Jets seen: No Suboptimal due to patient's large body habitus. When scanning right kidney adjacent liver is heteroge neously hyperechoic consistent with diffuse fatty infiltration. The central hypoechoic to anechoic po ioana defined somewhat lobulated area has some vascularity favoring solid mass over mild to moderate p yelocaliectasis. Lobulated contour to the left kidney without hydronephrosis. Small bilateral calculi and 2014 CT not as well seen on ultrasound. Bladder poorly distended and is thus suboptimally evalua tacho. IMPRESSION: Suboptimal study. Cannot exclude central right renal mass versus mild to moderate pyeloca liectasis. Follow-up study advised such as renal protocol contrast-enhanced CT .
== END | disposition home or self-care (01) ==
LOC: RADUSWWP 12:29
PROVIDERS: ATTEND Internal Medicine Nephrology
DX: N17.9 Acute kidney failure, unspecified (principal)
CPT/HCPCS: 76770

== ENCOUNTER → 2020-06-30 | Outpatient (CLI) | payer BC ==
--- NOTE | 2020-06-30 08:50 | CT ---
EXAMINATION TYPE: CT abdomen wo con DATE OF EXAM: 06/30/2020 HISTORY: Right renal mass CT DLP: 1442.4 mGycm. Automated Exposure Control for Dose Reduction was Utilized. TECHNIQUE: CT scan of the abdomen is performed without oral or IV contrast. COMPARISON: CT April 19, 2014. Renal ultrasound May 23, 2020. FINDINGS: Within the limitations of a non-contrast study, the following observations are made. LUNG BASES: No significant abnormality is appreciated. LIVER/GB: Liver remains markedly low dense consistent with diffuse fatty infiltration. PANCREAS: No significant abnormality is seen. SPLEEN: No significant abnormality is seen. ADRENALS: No significant abnormality is seen. KIDNEYS: Some cortical volume loss in the left kidney is redemonstrated. No left-sided nephrolithiasi s currently. Subcentimeter exophytic lesion mid to lower pole level axial image 41 too small to furth er characterize presumed benign. Right kidney shows 2-- 1 to 2 mm punctate calculi coronal image 62 and 66 for reference measurement to lower pole level. The area of concern midpole level right kidney near axial image 40 is isodense t o adjacent cortex, suspect lobulated prominent contour, solid mass difficult to entirely exclude with out renal protocol multiphasic imaging. BOWEL: Incidental normal-appearing appendix from cecum in the right mid abdomen. No suspicious small or large bowel dilatation. LYMPH NODES: No greater than 1cm abdominal lymph nodes are appreciated. OSSEOUS STRUCTURES: [id number] multilevel spurring in the visualized thoracolumbar spine. OTHER: No significant additional abnormality is seen. IMPRESSION: As above. No obvious new concerning solid mass on noncontrast CT. Suboptimal without mult iphase renal protocol study however.
== END | disposition home or self-care (01) ==
LOC: RADCTMAIN 07:36
PROVIDERS: ATTEND Nurse Practitioner Family
DX: N28.89 Other specified disorders of kidney and ureter (principal)
CPT/HCPCS: 74150

== ENCOUNTER → 2020-07-26 | Outpatient (CLI) | payer BC ==
--- NOTE | 2020-07-26 18:42 | CT ---
EXAMINATION TYPE: CT abdomen w con DATE OF EXAM: 07/26/2020 HISTORY: Right renal mass. CT DLP: 1822.8mGycm Automated Exposure Control for Dose Reduction was Utilized. CONTRAST: CT scan of the abdomen is performed with oral and with IV Contrast, patient injected with 80ml mL of Isovue 300. COMPARISON: CT abdomen June 30, 2020. CT abdomen and pelvis April 19, 2014. Renal ultrasound 2019. FINDINGS: LUNG BASES: No significant abnormality is appreciated. LIVER/GB: Liver remains diffusely low dense suggesting diffuse fatty infiltration. PANCREAS: No significant abnormality is seen. SPLEEN: No significant abnormality is seen. ADRENALS: No significant abnormality is seen. KIDNEYS: Symmetric cortical medullary uptake and excretion without hydronephrosis seen bilaterally. S ome cortical thinning and volume loss left sided kidney redemonstrated. Stable subcentimeter exophyti c lesion axial image 44 too small to further characterize presumed benign. Right kidney redemonstrate stable punctate nonobstructing 1 to 2 mm calculus midpole level coronal image 75. Lobulated contour redemonstrated most prominent in upper to mid pole level without concerning focal solid or cystic mylse al mass. No significant change from prior. BOWEL: Oral contrast does not reach colonic level making evaluation distal bowel slightly suboptimal. No suspicious small or large bowel dilatation. LYMPH NODES: No greater than 1cm abdominal lymph nodes are appreciated. OSSEOUS STRUCTURES: Mild to moderate multilevel anterior lateral spurring and visualized thoracic spi ne. Mild facet arthropathy lower lumbar levels. OTHER: No significant additional abnormality is seen. IMPRESSION: No concerning solid or cystic renal mass in either kidney.
== END | disposition home or self-care (01) ==
LOC: RADCTMAIN 16:11
PROVIDERS: ATTEND Urology
DX: D41.01 Neoplasm of uncertain behavior of right kidney (principal); Z88.0 Allergy status to penicillin; Z88.1 Allergy status to other antibiotic agents
CPT/HCPCS: 82565; 84520; 74160; 36415; Q9967

== ENCOUNTER → 2021-07-03 | Outpatient (CLI) | payer BC ==
--- NOTE | 2021-07-03 11:48 | CT ---
EXAMINATION TYPE: CT abdomen w con DATE OF EXAM: 07/03/2021 COMPARISON: 07/26/2020 HISTORY: follow up to prior abn CT CT DLP: 1756.8 mGycm CONTRAST: CT scan of the abdomen is performed with Oral Contrast and with IV Contrast, patient injected with 10 0 mL of Isovue 300. FINDINGS: LUNG BASES-: No visible nodule. No infiltrate. LIVER/GB: No calcified gallstones. No space occupying hepatic lesion. Biliary tree is of normal ca liber. PANCREAS: No inflammation. No distinct mass. SPLEEN: No splenic enlargement. No lesion seen. ADRENALS: No nodule. No thickening. KIDNEYS/BLADDER: No hydronephrosis. No nephrolithiasis. Tiny exophytic cyst midpole left kidney mary sures 8 mm. Mild renal parenchymal thinning left kidney. Urinary bladder grossly unremarkable. BOWEL: Normal appendix. Normal bowel caliber. No inflammation. LYMPH NODES: No greater than 1cm abdominal or pelvic lymph nodes are appreciated. AORTA: No significant abnormality. OSSEOUS STRUCTURES: No significant abnormality is seen. OTHER: No significant additional abnormality is seen. IMPRESSION: 1. Tiny exophytic cyst midpole left kidney measures 8 mm. Mild renal parenchymal thinning left kidney .
== END | disposition home or self-care (01) ==
LOC: RADCTMAIN 09:34
PROVIDERS: ATTEND Family Medicine
DX: N28.1 Cyst of kidney, acquired (principal)
CPT/HCPCS: 82565; 84520; 74160; 36415; Q9967

== ENCOUNTER → 2022-09-27 | Outpatient (CLI) | payer BC ==
--- NOTE | 2022-10-01 10:40 | MM ---
Reason for Exam: Screening (asymptomatic). Baseline mammogram. Patient History: Menarche at age 15. First Full-Term at age 28. Patient has history of breast feeding. Sister had breast cancer, age 49. Sister tested for BRCA1 outcome was negative. Sister tested for BRCA2 outcome was negative. Last menstrual period: 05/03/2022 Risk Values: Kerline 5 year model risk: 2.2%. NCI Lifetime model risk: 15.8%. Prior Study Comparison: Patient's first Mammogram. No prior studies available for comparison. Tissue Density: The breast tissue is heterogeneously dense. This may lower the sensitivity of mammography. Findings: Analyzed By CAD. There is no suspicious group of microcalcifications or suspicious mass in either breast. Overall Assessment: Negative, BI-RAD 1 Management: Screening Mammogram of both breasts in 1 year. A clinical breast exam by your physician is recommended on an annual basis and results should be correlated with mammographic findings. Electronically signed and approved by: Tray Morales D.O.
== END | disposition home or self-care (01) ==
LOC: RADMAMWWP 15:49
PROVIDERS: ATTEND Family Medicine
DX: Z12.31 Encounter for screening mammogram for malignant neoplasm of breast (principal); Z80.3 Family history of malignant neoplasm of breast
CPT/HCPCS: 77063; 77067

== ENCOUNTER → 2023-05-20 | Outpatient (CLI) | payer BC ==
--- NOTE | 2023-05-21 10:28 | US ---
EXAMINATION TYPE: US kidneys/renal and bladder DATE OF EXAM: 05/20/2023 COMPARISON: Ultrasound 05/23/[address] 07/26/2020 CLINICAL INDICATION: Female, 57 years old with history of N28.1 CYST OF KIDNEY, ACQUIRED; follow up t o previous. EXAM MEASUREMENTS: Right Kidney: 11 x 5.4 x 4.7 cm Left Kidney: 11.5 x 5.1 x 4.1 cm Right Kidney: No hydronephrosis. Isoechoic area mid pole measuring 3.7 x 2.1 x 3.2 cm. Unchanged from 2019. [employer]alsmith notes: Normal tissue vs. mass. Left Kidney: No hydronephrosis. There is a rounded area in the midpole cortex measuring 1.8 cm, proba gin some focal cortical lobulation. This may have been present prior exam. Looks more pronounced on t he current study, short interval follow-up can be performed. Bladder: Partially distended bladder shows no gross abnormality. Bilateral Jets seen: Yes IMPRESSION: 1. Stable 3.7 cm centrally located isoechoic masslike area in the mid right kidney, unchanged from 20 20. This may represent some anatomic variation with interposed normal tissue. Consider ongoing survei llance follow-up. 2. A 1.8 cm focal cortical lobulation mid left kidney may have been present previously. It looks more pronounced on the current study. Recommend six-month follow-up to reassess. 3. No hydronephrosis on either side.
== END | disposition home or self-care (01) ==
LOC: RADUSWWP 16:18
PROVIDERS: ATTEND Family Medicine
DX: N28.1 Cyst of kidney, acquired (principal)
CPT/HCPCS: 76770

== ENCOUNTER 2024-02-28 23:54 | Emergency (ER) | payer BC ==
--- NOTE | 2024-02-29 00:52 | ED ---
General Adult HPI - General Chief complaint: Extremity Injury, Lower Stated complaint: fall Time Seen by Provider: 02/29/24 00:13 Source: patient Mode of arrival: ambulatory Limitations: no limitations - History of Present Illness Initial comments: 58-year-old female presenting to the ED with complaints of left knee pain. Patient reports that she was going to see the [facility] when she tripped and fell face forward onto the pavement. Denies head injury at this time. Not on blood thinners. Since then patient notes pain of her left knee and has developed a hematoma overlying her left bruce. No other complaints at this time. - Related Data Previous Rx's Medication Instructions Recorded Acetaminophen Tab [Tylenol] 650 mg PO Q4HR PRN tab 02/16/20 Albuterol Inhaler [Ventolin Hfa 2 puff INHALATION RT-QID 30 Days 02/16/20 Inhaler] #1 inhaler Canagliflozin [Invokana] 100 mg PO DAILY 30 Days #30 tab 02/16/20 Levofloxacin [Levaquin] 750 mg PO DAILY@0600 5 Days #5 tab 02/16/20 Lisinopril-Hctz 20-25 mg 1 each PO DAILY 30 Days #30 tab 02/16/20 [Zestoretic 20-25] amLODIPine [Norvasc] 10 mg PO DAILY 3 Days #30 tab 02/16/20 cloNIDine HCL [Catapres] 0.2 mg PO TID 30 Days #90 tab 02/16/20 metFORMIN HCL [Glucophage] 1,000 mg PO BID-W/MEALS 30 Days 02/16/20 #60 tab Allergies Allergy/AdvReac Type Severity Reaction Status Date / Time Penicillins Allergy Swelling Verified 02/29/24 00:00 Review of Systems ROS Statement: Those systems with pertinent positive or pertinent negative responses have been documented in the HPI. ROS Other: All systems not noted in ROS Statement are negative. Past Medical History Past Medical History: Hypertension Additional Past Medical History / Comment(s): Morbid obesity, lower leg edema and the patient has not had any outpatient medical follow-up and she doesn't take any medications, bells palsy History of Any Multi-Drug Resistant Organisms: None Reported Past Surgical History: No Surgical Hx Reported Additional Past Surgical History / Comment(s): cervical biopsy Past Anesthesia/Blood Transfusion Reactions: No Reported Reaction Past Psychological History: No Psychological Hx Reported Smoking Status: Former smoker Past Alcohol Use History: None Reported Past Drug Use History: None Reported General Exam Limitations: no limitations General appearance: alert, in no apparent distress Eye exam: Present: normal appearance Respiratory exam: Present: normal lung sounds bilaterally Cardiovascular Exam: Present: regular rate, normal rhythm GI/Abdominal exam: Present: soft, normal bowel sounds. Absent: distended, tenderness, guarding, rebound, rigid Extremities exam: Present: other (DP/PT pulses intact on left lower extremity. Patient does have approximately 18 x 15 cm hematoma on the anterior left lower leg.) Course Vital Signs 02/29/24 00:01 Temperature 97.8 F Pulse Rate 70 Respiratory 17 Rate Blood Pressure 207/111 O2 Sat by Pulse 99 Oximetry Medical Decision Making - Medical Decision Making Was pt. sent in by a medical professional or institution (Dr. PA, CRYSTAL LAPPER, urgent care, hospital, or [place] [facility]...) When possible be specific @ -No Did you speak to anyone other than the patient for history (EMS, parent, family, police, friend...)? What history was obtained from this source @ -No Did you review nursing and triage notes (agree or disagree)? Why? @ -I reviewed and agree with nursing and triage notes Were old charts reviewed (outside hosp., previous admission, EMS record, old EKG, old radiological studies, urgent care reports/EKG's, [place] [facility] records)? Report findings @ -No old charts were reviewed Differential Diagnosis (chest pain, altered mental status, abdominal pain women, abdominal pain men, vaginal bleeding, weakness, fever, dyspnea, syncope, headache, dizziness, GI bleed, back pain, seizure, CVA, palpatations, mental health, musculoskeletal)? @ -Differential Musculoskeletal Muscular strain, contusion, ligament sprain, fracture, arthritis, septic arthritis, bursitis, cellulitis, muscle spasm, nerve compression, DVT, arterial occlusion, herpes zoster, electrolyte abnormality, tumor.... This is not meant to be in all inclusive list EKG interpreted by me (3pts min.). @ -As above X-rays interpreted by me (1pt min.). @ -X-ray tib-fib interpreted me which revealed no evidence of acute finding. CT interpreted by me (1pt min.). @ -None done U/S interpreted by me (1pt. min.). @ -None done What testing was considered but not performed or refused? (CT, X-rays, U/S, labs)? Why? @ -None What meds were considered but not given or refused? Why? @ -None Did you discuss the management of the patient with other professionals (professionals i.e. , PA, CRYSTAL LAPPER, lab, RT, psych nurse, hospice social worker, virtual recruiter, teacher, real estate loan officer, correctional casework specialist)? Give summary @ -No Was smoking cessation discussed for >3mins.? @ -No Was critical care preformed (if so, how long)? @ -No Were there social determinants of health that impacted care today? How? (Homelessness, low income, unemployed, alcoholism, drug addiction, transportation, low edu. Level, literacy, decrease access to med. care, [place] [facility], rehab)? @ -No Was there de-escalation of care discussed even if they declined (Discuss DNR or withdrawal of care, Hospice)? DNR status @ -No What co-morbidities impacted this encounter? (DM, HTN, Smoking, COPD, CAD, Cancer, CVA, ARF, Chemo, Hep., AIDS, mental health diagnosis, sleep apnea, morbid obesity)? @ -None Was patient admitted / discharged? Hospital course, mention meds given and route, prescriptions, significant lab abnormalities, going to OR and other p ertinent info. @ -Discharge 58-year-old female presenting to the ED with complaints of left knee pain after trip and fall. Also notes hematoma developing underneath her left knee. This was wrapped with James bandage and ice was placed over this. Imaging reviewed which revealed no evidence of acute finding. Discharged home in stable condition with instructions to follow-up with her primary care provider. Discussed return precautions with patient who verbalized agreement. Undiagnosed new problem with uncertain prognosis? @ -No Drug Therapy requiring intensive monitoring for toxicity (Heparin, Nitro, Insulin, Cardizem)? @ -No Were any procedures done? @ -No Diagnosis/symptom? @ -Status post mechanical fall, left knee pain Acute, or Chronic, or Acute on Chronic? @ -Acute Uncomplicated (without systemic symptoms) or Complicated (systemic symptoms)? @ -Uncomplicated Side effects of treatment? @ -No Exacerbation, Progression, or Severe Exacerbation? @ -No Poses a threat to life or bodily function? How? (Chest pain, [place], [place], pneumonia, PE, COPD, DKA, ARF, appy, cholecystitis, CVA, Diverticulitis, Homicidal, Suicidal, threat to staff... and all critical care pts) @ -No Disposition Clinical Impression: Fall, Left knee pain, Hematoma of left lower leg Disposition: HOME SELF-CARE Condition: Good Instructions (If sedation given, give patient instructions): Knee Pain (ED), Hematoma (ED) Additional Instructions: Please return to the Emergency Department if symptoms worsen or any other concerns. Please follow-up with your primary care provider. Is patient prescribed a controlled substance at d/c from ED?: No Referrals: Obdulia Orta MD [Primary Care Provider] - 1-2 days Time of Disposition: 03:37
[2024-02-29 00:57] VITALS: TEMP 97.8
[2024-02-29] MEDS: ACETAMINOPHEN TAB 500 MG TAB PO STA (02:39)
--- NOTE | 2024-02-29 03:52 | XR ---
EXAM: XR Left Knee, 3 Views CLINICAL HISTORY: trip/fall left knee pain/hematoma LLE TECHNIQUE: Three views of the left knee. COMPARISON: No relevant prior studies available. FINDINGS: Bones/joints: No acute fracture. No dislocation. Bones are osteopenic. Soft tissues: Ill-defined soft tissue density at the anterior aspect proximal tibial metadiaphysis consistent with a hematoma. No radiopaque foreign body. IMPRESSION: No acute fracture or dislocation. Subcutaneous hematoma anterior to the proximal tibial metadiaphysis.
[2024-02-29] MEDS: MORPHINE SULFATE 2 MG/ML SYRINGE IM STA (03:54)
[2024-02-29 04:45] VITALS: BP 181/126; PULSE 69; RESP 19
== END 2024-02-29 04:01 | disposition home or self-care (01) ==
LOC: EC 23:54
DX: S80.12XA Contusion of left lower leg, initial encounter (principal); Z87.891 Personal history of nicotine dependence; Z88.0 Allergy status to penicillin; W01.0XXA Fall on same level from slipping, tripping and stumbling without subsequent striking against object, initial encounter
CPT/HCPCS: 73562; 99284; 96372; J2270

== ENCOUNTER → 2024-05-08 | Outpatient (CLI) | payer BC ==
--- NOTE | 2024-05-12 08:55 | MM ---
Reason for Exam: Screening (asymptomatic). Last mammogram was performed 1 year(s) and 7 month(s) ago. Patient History: Menarche at age 15. First Full-Term at age 28. Patient has history of breast feeding. Sister had breast cancer, age 49. Sister tested for BRCA1 outcome was negative. Sister tested for BRCA2 outcome was negative. Risk Values: Kerline 5 year model risk: 2.4%. NCI Lifetime model risk: 15.2%. Prior Study Comparison: 09/27/2022 Bilateral MG 3D screening mammo w/cad, [facility]. Tissue Density: The breasts are heterogeneously dense, which may obscure small masses. Findings: Analyzed By CAD. There is no suspicious group of microcalcifications or new suspicious mass in either breast. Benign calcifications. Overall Assessment: Benign, BI-RAD 2 Management: Screening Mammogram of both breasts in 1 year. . Patient should continue monthly self-breast exams. A clinical breast exam by your physician is recommended on an annual basis. This exam should not preclude additional follow-up of suspicious palpable abnormalities. Note on Kerline scores and lifetime risk: 1. A Kerline score greater than 3% is considered moderate risk. If this is the case, consider specialist referral to assess eligibility for a risk reducing agent. 2. If overall lifetime risk for the development of breast cancer is 20% or higher, the patient may qualify for future screening with alternating mammogram and breast MRI. Electronically signed and approved by: Almas Franco M.D. Radiologis
== END | disposition home or self-care (01) ==
LOC: RADMAMWWP 16:28
PROVIDERS: ATTEND Family Medicine
DX: Z12.31 Encounter for screening mammogram for malignant neoplasm of breast (principal); R92.333 Mammographic heterogeneous density, bilateral breasts; Z80.3 Family history of malignant neoplasm of breast
CPT/HCPCS: 77063; 77067